=== PATIENT | female | born 1950 | race Caucasian/White ===

== ENCOUNTER → 2018-06-06 10:10 | Outpatient (CLI) | payer MEDICARE, OTHER, SELFPAY ==
--- NOTE | 2018-06-06 10:14 | BI_ITS ---
MAMMOGRAPHY - BILATERAL SCREENING REASON FOR EXAM: Female, 67 years old. Routine annual screening examination. PERTINENT HISTORY: Non-contributory. TECHNIQUE: Digital bilateral breast kasie (3D mammographic acquisition) in the CC and MLO projections. 2-D mediolateral oblique (MLO) and craniocaudad (CC) views of both breasts were obtained. CAD: Full Field Digital Mammography with Computer Added Detection was performed. COMPARISON: Comparison is made with prior study dated May 24, 2017 and December 25, 2015. FINDINGS: Breast Composition: There are scattered areas of fibroglandular density. There are no dominant masses or suspicious calcifications. Stable benign-appearing bilateral axillary lymph nodes. No other significant abnormalities are identified. There has been no significant change since the prior study. BI/SCREENING MAMM (CAD), BILAT IMPRESSION: Stable bilateral screening mammogram. Yearly follow-up mammogram recommended. (A) ASSESSMENT CATEGORY: BIRADS Category 2: Benign. A letter regarding these results will be sent to the patient by the facility within 30 days. Approximately 10% of breast cancers are not detected by mammography. A normal mammogram should not delay biopsy of a clinically suspicious abnormality. [id number] Electronically Signed: Masoud Bustillos MD at 14:24 EDT Tel [phone], Service support ,
== END ==
PROVIDERS: Family Provider Nurse Practitioner; PCP Nurse Practitioner; Visit Provider Obstetrics & Gynecology
DX: Z12.31 Encounter for screening mammogram for malignant neoplasm of breast (principal)
CPT/HCPCS: 77063; 77067

== ENCOUNTER → 2018-10-08 22:28 | Outpatient (CLI) | payer MEDICARE, OTHER, SELFPAY ==
[2018-10-08 15:35] VITALS: BMI 42.4
[2018-10-08 22:40] LABS: Absolute Lymphocyte Count 2.87 X10^3/ul (0.83-4.51); Absolute Neutrophil Count 4.5 X10^3/uL (2.0-7.7); Basophil# 0.04 X10^3/uL; Basophil% 0.5 % (0-1); Eosinophil# 0.13 X10^3/uL; Eosinophils% 1.6 % (0-5); Hematocrit 41.3 % (37-47); Hemoglobin 13.5 g/dl (12.0-15.0); Lymphocyte # 2.87 X10^3/ul (4.0); Lymphocyte % 35.1 % (19-41); Mean Corp Hgb Conc 32.7 g/gl (32-36); Mean Corpuscular Hgb 29.5 pg (27.0-32.0); Mean Corpuscular Volume 90.2 fL (81-99); Mean Platelet Vol. 9.9 fl (6.2-12.0); Monocyte# 0.57 X10^3/uL; Neutrophil # 4.54 X10^3/uL (2.7-7.7); Neutrophil % 55.6 % (47-70); Platelet Count 267 K/mm3 (150-450); RBC Distribution Width CV 15.1 % (11.6-14.6); RBC Distribution Width SD 49.8 fl (35.1-43.9); Red Blood Count 4.58 M/mm3 (4.2-5.4); White Blood Count 8.2 K/mm3 (4.4-11.0)
[2018-10-08 22:45] LABS: POSITIVE COUNT NO; POSITIVE DIFFERENTIAL NO; POSITIVE MORPHOLOGY NO
[2018-10-08 22:57] LABS: ALB/GLOB Ratio 1.1 RATIO (0.9-2.4); AST(SGOT) 16 U/L (15-37); Alanine Aminotransfer ALT/SGPT 30 U/L (13-56); Albumin, Serum 4.1 g/dL (3.2-5.0); Alkaline Phosphatase 92 U/L (45-117); Anion Gap 8 (5-15); BUN 17 mg/dL (7-18); BUN/Creat Ratio 28.5 RATIO (10-20); Calcium,Total 9.2 mg/dL (8.5-10.1); Chloride 102 mmol/L (98-107); Cholesterol 163 mg/dL (200); EST Glomerular Filtration Rate 106 mL/min (>60); Est Glom Filt Rate - Afr Amer 128 mL/min (>60); Globulin 3.8 g/dL (2.2-4.2); Glucose 85 mg/dL (74-106); High Density Lipoprotein 45 mg/dL; Potassium 3.4 mmol/L (3.5-5.1); Protein, Total 7.9 g/dL (6.4-8.2); Sodium Level 140 mmol/L (136-145); Thyroid Stim Hormone (TSH) 1.52 uIU/mL (0.358-3.74); Triglycerides 221 mg/dL; Very Low Density Lipoprotein 44 mg/dL (5-40)
== END ==
PROVIDERS: Family Provider Nurse Practitioner; PCP Nurse Practitioner; Referring Provider Nurse Practitioner; Visit Provider Nurse Practitioner
DX: F32.9 Major depressive disorder, single episode, unspecified (principal); E78.5 Hyperlipidemia, unspecified; R60.9 Edema, unspecified
CPT/HCPCS: 80053; 80061; 84443; 85025

== ENCOUNTER → 2019-09-03 09:56 | Outpatient (CLI) | payer MEDICARE, OTHER, SELFPAY ==
[2019-03-15 18:31] VITALS: BMI 44.6
--- NOTE | 2019-09-03 10:00 | BI_ITS ---
MAMMOGRAPHY - BILATERAL SCREENING REASON FOR EXAM: Female, 69 years old. Routine annual screening examination. PERTINENT HISTORY: Non-contributory. TECHNIQUE: Digital bilateral breast alen (3D mammographic acquisition) in the CC and MLO projections. 2-D mediolateral oblique (MLO) and craniocaudad (CC) views of both breasts were obtained. CAD: Full Field Digital Mammography with Computer Added Detection was performed. COMPARISON: Comparison is made with prior study dated June 06, 2018 and May 24, 2017. FINDINGS: Breast Composition: There are scattered areas of fibroglandular density. There are no dominant masses or suspicious calcifications. Stable appearance of the benign-appearing bilateral axillary lymph nodes. No other significant abnormalities are identified. There has been no significant change since the prior study. BI/SCREEN MAMM (CAD) W/ALEN BILAT IMPRESSION: Stable bilateral screening mammogram. Yearly follow-up mammogram recommended. (A) ASSESSMENT CATEGORY: BIRADS Category 2: Benign. A letter regarding these results will be sent to the patient by the facility within 30 days. Approximately 10% of breast cancers are not detected by mammography. A normal mammogram should not delay biopsy of a clinically suspicious abnormality. [id number] Electronically Signed: Masoud Bustillos, at 13:57 EDT , Service support ,
== END ==
PROVIDERS: Family Provider Nurse Practitioner; PCP Nurse Practitioner; Referring Provider Obstetrics & Gynecology; Visit Provider Obstetrics & Gynecology
DX: Z12.31 Encounter for screening mammogram for malignant neoplasm of breast (principal)
CPT/HCPCS: 77063; 77067

== ENCOUNTER → 2019-09-10 21:11 | Outpatient (CLI) | payer MEDICARE, OTHER, SELFPAY ==
[2019-09-10 16:30] VITALS: BMI 42.0
[2019-09-10 21:19] LABS: Absolute Lymphocyte Count 2.59 X10^3/uL (0.83-4.51); Absolute Neutrophil Count 4.3 X10^3/uL (2.0-7.7); Basophil# 0.07 X10^3/uL; Basophil% 0.9 % (0-1); Eosinophil# 0.13 X10^3/uL; Eosinophils% 1.7 % (0-5); Hematocrit 41.6 % (37-47); Hemoglobin 13.4 g/dL (12.0-15.0); Lymphocyte # 2.59 X10^3/ul (4.0); Lymphocyte % 33.9 % (19-41); Mean Corp Hgb Conc 32.2 g/dL (32-36); Mean Corpuscular Hgb 29.1 pg (27.0-32.0); Mean Corpuscular Volume 90.2 fL (81-99); Mean Platelet Vol. 9.7 fl (6.2-12.0); Monocyte# 0.57 X10^3/uL; Monocyte% 7.5 % (0-10); NRBC Flagged by Analyzer 0 % (0-5); Neutrophil # 4.28 X10^3/uL (2.7-7.7); Neutrophil % 55.9 % (47-70); Platelet Count 259 K/mm3 (150-450); RBC Distribution Width CV 15.2 % (11.6-14.6); RBC Distribution Width SD 50.7 fl (35.1-43.9); Red Blood Count 4.61 M/mm3 (4.2-5.4); White Blood Count 7.7 K/mm3 (4.4-11.0)
[2019-09-10 21:42] LABS: ALB/GLOB Ratio 1.1 RATIO (0.9-2.4); AST(SGOT) 20 U/L (15-37); Alanine Aminotransfer ALT/SGPT 35 U/L (13-56); Alkaline Phosphatase 98 U/L (45-117); Anion Gap 7 (5-15); BUN 15 mg/dL (7-18); BUN/Creat Ratio 19.3 RATIO (10-20); CRP, High Sensitivity Cardiac 2.05 mg/L; Calcium,Total 9.1 mg/dL (8.5-10.1); Chloride 104 mmol/L (98-107); Cholesterol 165 mg/dL (200); Creatinine, Serum 0.78 mg/dL (0.55-1.02); EST Glomerular Filtration Rate 78 mL/min (>60); Est Glom Filt Rate - Afr Amer 94 mL/min (>60); Globulin 3.6 g/dL (2.2-4.2); Glucose 99 mg/dL (74-106); High Density Lipoprotein 45 mg/dL; Potassium 3.6 mmol/L (3.5-5.1); Protein, Total 7.6 g/dL (6.4-8.2); Sodium Level 140 mmol/L (136-145); Thyroid Stim Hormone (TSH) 1.95 uIU/mL (0.358-3.74); Triglycerides 178 mg/dL; Very Low Density Lipoprotein 36 mg/dL (5-40)
== END ==
PROVIDERS: Family Provider Nurse Practitioner; PCP Nurse Practitioner; Referring Provider Nurse Practitioner; Visit Provider Nurse Practitioner
DX: R00.2 Palpitations (principal); R68.89 Other general symptoms and signs; E78.5 Hyperlipidemia, unspecified
CPT/HCPCS: 80053; 80061; 84443; 84484; 85025; 86141

== ENCOUNTER → 2019-09-19 09:30 | Outpatient (CLI) | payer MEDICARE, OTHER, SELFPAY ==
[2019-09-10 16:30] VITALS: BMI 42.0
--- NOTE | 2019-09-19 09:32 | US_ITS ---
PROCEDURES: ULTRASOUND AORTA REASON FOR EXAM: Female, 69 years old. Back pain TECHNIQUE: Ultrasound evaluation of the aorta was performed with real-time and static martin-scale imaging. COMPARISON: None. FINDINGS: There is no elongation or tortuosity of the abdominal aorta. Aorta measures: Proximal 2.2 cm. Middle 1.4 cm. Distal 1.8 cm. Aorta measure transversely: Proximal 2.6 cm. Middle 2.3 cm. Distal 2.4 cm. Right iliac artery measures: 1.1 cm. Right iliac artery measure transversely: 1.3 cm. Left iliac artery measures: 1.5 cm. Left iliac artery measure transversely: 1.3 cm. There is no demonstrated aneurysm.. US/Aorta IMPRESSION: There is no demonstrated aneurysm. Electronically Signed: Dale Sawyer MD at 19:28 EDT Tel , Service support ,
== END ==
PROVIDERS: Family Provider Nurse Practitioner; PCP Nurse Practitioner; Referring Provider Nurse Practitioner; Visit Provider Nurse Practitioner
DX: I77.1 Stricture of artery (principal); M54.5 Low back pain
CPT/HCPCS: 76775

== ENCOUNTER → 2019-10-10 10:54 | Outpatient (CLI) | payer MEDICARE, OTHER, SELFPAY ==
[2019-09-24 13:50] VITALS: BMI 41.8
--- NOTE | 2019-10-10 10:56 | ECHOD_ITS ---
Reason For Study: PALPITATIONS Procedure This was a 2D Doppler, Color Flow transthoracic echocardiogram. Exam performed in department. Left Ventricle Normal LV size. The estimated ejection fraction is 60 %. Stage 2 diastolic dysfunction. No regional wall motion abnormalities noted. Right Ventricle Normal right ventricle. Normal systolic function. Atria Normal left atrium. Normal right atrium. No doppler evidence for ASD. Mitral Valve There is no mitral valve stenosis. Trivial mitral valve insufficiency. Tricuspid Valve There is no tricuspid stenosis. Trivial tricuspid valve insufficiency. Pulmonary artery systolic pressure is 40 mmHg. Aortic Valve Trisinus/trileaflet aortic valve. There is no aortic stenosis. No aortic valve insufficiency. Pulmonic Valve There is no pulmonic valvular stenosis. No pulmonic valve insufficiency. Great Vessels Normal aortic root. Pericardium/Pleural No pericardial effusion. MMode/2D Measurements & Calculations LVIDd: 4.9 cm IVSd: 0.85 cm Ao root diam: 3.0 cm LVIDs: 3.2 cm LVPWd: 0.83 cm RVDd: 4.3 cm FS: 34.7 % LAV(MOD-bp): 48.9 ml LA A4 area: 19.0 cm2 LA dimension(2D): 4.1 cm LAV(MOD-bp) Indexed: 26.7 ml/m2 LAV(MOD-sp2): 40.5 ml LAV(MOD-sp4): 53.8 ml RA A4 area: 15.9 cm2 Time Measurements MV dec time: 0.21 sec Doppler Measurements & Calculations MV E max tom: 113.7 cm/sec Lat Peak E' Tom: 5.9 cm/sec Med Peak E' Tom: 6.5 cm/sec MV A max tom: 110.3 cm/sec E/E' lat: 19.1 E/E' med: 17.6 MV E/A: 1.0 Ao V2 max: 189.7 cm/sec LV V1 max: 127.7 cm/sec TR max tom: 281.4 cm/sec Ao max P.4 mmHg LV V1 max P.5 mmHg TR max P.8 mmHg Interpretation Summary The estimated ejection fraction is 60 %. Stage 2 diastolic dysfunction. Trivial mitral valve insufficiency. Trivial tricuspid valve insufficiency. Pulmonary artery systolic pressure is 40 mmHg. Ordering Physician: Marva Landers Referring Physician: YOLIE CHAWLA Performed By: Rachael Lima, MUNA, RVT
== END ==
PROVIDERS: Family Provider Nurse Practitioner; PCP Nurse Practitioner; Referring Provider Specialist; Visit Provider Specialist
DX: R00.2 Palpitations (principal)
CPT/HCPCS: 93306

== ENCOUNTER → 2020-06-08 06:37 | Outpatient (CLI) | payer MEDICARE, OTHER, SELFPAY ==
[2020-06-04 11:29] VITALS: BMI 45.2
[2020-06-08 07:08] LABS: Absolute Lymphocyte Count 2.45 X10^3/uL (0.83-4.51); Absolute Neutrophil Count 4.3 X10^3/uL (2.0-7.7); Basophil# 0.06 X10^3/uL; Basophil% 0.8 % (0-1); Eosinophil# 0.13 X10^3/uL; Eosinophils% 1.7 % (0-5); Hematocrit 41.4 % (37-47); Hemoglobin 13.1 g/dL (12.0-15.0); Lymphocyte # 2.45 X10^3/ul (4.0); Lymphocyte % 32.2 % (19-41); Mean Corp Hgb Conc 31.6 g/dL (32-36); Mean Corpuscular Hgb 29.6 pg (27.0-32.0); Mean Corpuscular Volume 93.5 fL (81-99); Mean Platelet Vol. 9.8 fl (6.2-12.0); Monocyte# 0.64 X10^3/uL; Monocyte% 8.4 % (0-10); NRBC Flagged by Analyzer 0 % (0-5); Neutrophil # 4.31 X10^3/uL (2.7-7.7); Neutrophil % 56.5 % (47-70); Platelet Count 256 K/mm3 (150-450); RBC Distribution Width CV 14.4 % (11.6-14.6); RBC Distribution Width SD 49.1 fl (35.1-43.9); Red Blood Count 4.43 M/mm3 (4.2-5.4); White Blood Count 7.6 K/mm3 (4.4-11.0)
[2020-06-08 08:07] LABS: ALB/GLOB Ratio 1.1 RATIO (0.9-2.4); AST(SGOT) 20 U/L (15-37); Alanine Aminotransfer ALT/SGPT 33 U/L (13-56); Albumin, Serum 3.9 g/dL (3.2-5.0); Alkaline Phosphatase 104 U/L (45-117); Anion Gap 5 (5-15); BUN 14 mg/dL (7-18); BUN/Creat Ratio 21.5 RATIO (10-20); Calcium,Total 9.5 mg/dL (8.5-10.1); Chloride 104 mmol/L (98-107); Cholesterol 173 mg/dL (200); Creatinine, Serum 0.65 mg/dL (0.55-1.02); EST Glomerular Filtration Rate 95 mL/min (>60); Est Glom Filt Rate - Afr Amer 115 mL/min (>60); Globulin 3.4 g/dL (2.2-4.2); Glucose 131 mg/dL (74-106); High Density Lipoprotein 41 mg/dL; Potassium 3.9 mmol/L (3.5-5.1); Protein, Total 7.3 g/dL (6.4-8.2); Sodium Level 137 mmol/L (136-145); Thyroid Stim Hormone (TSH) 1.89 uIU/mL (0.358-3.74); Triglycerides 254 mg/dL; Very Low Density Lipoprotein 51 mg/dL (5-40)
== END ==
PROVIDERS: PCP Nurse Practitioner; Referring Provider Nurse Practitioner; Visit Provider Nurse Practitioner
DX: I10 Essential (primary) hypertension (principal); R53.83 Other fatigue
CPT/HCPCS: 36415; 80053; 80061; 84443; 85025

== ENCOUNTER → 2020-09-25 14:20 | Outpatient (CLI) | payer MEDICARE, OTHER, SELFPAY ==
[2020-06-04 11:29] VITALS: BMI 45.2
--- NOTE | 2020-09-25 14:40 | BI_ITS ---
MAMMOGRAPHY - BILATERAL SCREENING REASON FOR EXAM: Female, 70 years old. Routine annual screening examination. PERTINENT HISTORY: Non-contributory. TECHNIQUE: Digital bilateral breast alen (3D mammographic acquisition) in the CC and MLO projections. 2-D mediolateral oblique (MLO) and craniocaudad (CC) views of both breasts were obtained. CAD: Full Field Digital Mammography with Computer Added Detection was performed. COMPARISON: Comparison is made with prior study dated 09/03/2019 and 06/06/2018. FINDINGS: Breast Composition: There are scattered areas of fibroglandular density. There are no dominant masses or suspicious calcifications. Stable benign appearing bilateral axillary lymph nodes. No other significant abnormalities are identified. There has been no significant change since the prior study. BI/SCREEN MAMM (CAD) W/ALEN BILAT IMPRESSION: Stable bilateral screening mammogram. Yearly follow-up mammogram recommended. (A) ASSESSMENT CATEGORY: BIRADS Category 2: Benign. A letter regarding these results will be sent to the patient by the facility within 30 days. Approximately 10% of breast cancers are not detected by mammography. A normal mammogram should not delay biopsy of a clinically suspicious abnormality. [id number] Electronically Signed: Masoud Bustillos, at 15:33 EST , Service support ,
== END ==
PROVIDERS: PCP Nurse Practitioner; Referring Provider Nurse Practitioner; Visit Provider Nurse Practitioner
DX: Z12.31 Encounter for screening mammogram for malignant neoplasm of breast (principal)
CPT/HCPCS: 77063; 77067

== ENCOUNTER 2020-12-24 13:30 | Emergency (ER) | payer MEDICARE, OTHER, SELFPAY ==
[2020-06-04 11:29] VITALS: BMI 45.2
[2020-12-24 13:31] VITALS: BP 158/104; PULSE 104; RESP 18; TEMP 36; O2SAT 98; BMI 44.9
--- NOTE | 2020-12-24 14:20 | RAD_ITS ---
STUDY: X-RAY - LEFT HAND REASON FOR EXAM: Female, 70 years old. CAT BITES ON 2ND, 3RD, AND 4TH DIGITS OF LEFT HAND. TECHNIQUE: 3 view(s) of the hand. COMPARISON: None. FINDINGS: There is joint space narrowing of the radiocarpal articulation consistent with degenerative arthrosis. Normal distal radioulnar joint. Normal visualized carpal bones. Normal carpal articulations There is degenerative arthrosis of the carpometacarpal (CMC) articulation of the thumb. Normal second through fifth carpometacarpal joints. Normal metacarpi. There is degenerative arthrosis of the metacarpophalangeal (MCP) joints. Normal interphalangeal joint of the thumb. Normal proximal and distal phalanges of the thumb. Normal metacarpophalangeal joints of the second through fifth fingers. There is diffuse articular joint space narrowing of the proximal and distal interphalangeal joints of the second through fifth fingers, but without erosive changes or periarticular soft tissue swelling. Normal phalanges of the second through fifth fingers. There is soft tissue swelling of the second, third and fourth digits. RAD/Hand Min 3 Views IMPRESSION: Degenerative joint disease of the hand and wrist, as described above. Soft tissue swelling of the second, third and fourth digits. Electronically Signed: Aurea Monet MD at 14:41 EST Tel , Service support ,
--- NOTE | 2020-12-24 14:20 | RAD_ITS ---
STUDY: X-RAY - RIGHT HAND REASON FOR EXAM: Female, 70 years old. CAT BITES ON 1ST AND 2ND DIGITS OF RIGHT HAND. TECHNIQUE: 3 view(s) of the hand. COMPARISON: None. FINDINGS: There is joint space narrowing of the radiocarpal articulation consistent with degenerative arthrosis. Normal distal radioulnar joint. Normal visualized carpal bones. Normal carpal articulations There is degenerative arthrosis of the carpometacarpal (CMC) articulation of the thumb. Normal second through fifth carpometacarpal joints. Normal metacarpi. There is degenerative arthrosis of the metacarpophalangeal (MCP) joints. Normal interphalangeal joint of the thumb. Normal proximal and distal phalanges of the thumb. Normal metacarpophalangeal joints of the second through fifth fingers. There is diffuse articular joint space narrowing of the proximal and distal interphalangeal joints of the second through fifth fingers, but without erosive changes or periarticular soft tissue swelling. Normal phalanges of the second through fifth fingers. There is soft tissue swelling of the second digit. RAD/Hand Min 3 Views IMPRESSION: Degenerative joint disease of the hand and wrist, as described above. Second digit soft tissue swelling. Electronically Signed: Aurea Monet MD at 14:39 EST Tel , Service support ,
--- NOTE | 2020-12-24 14:24 | ED.VISSUMM ---
- ER Visit Summary Date of Service: 12/24/20 Chief Complaint: [Cat bites] History of Present Illness: The patient is a 70 F [presents to the emergency department with multiple cat bites to both hands. Patient states that her cat got stuck in some duct work in her neighbor's house and she was trying to pull the cat out as the cat was biting and scratching at her hands. Patient is left-hand dominant. Patient unsure of her last tetanus shot. Patient has history of high cholesterol.] Physical Examination: [HERAMEZ-PERRBOUCHRA, ALEMI. Cranial nerves II through XII grossly intact. TMs clear. Mucous membranes moist. No adenopathy. Cardiovascular-regular rate and rhythm without murmur or ectopy Lungs-clear to auscultation, chest wall stable without crepitus or subcu emphysema Abdomen-normoactive bowel sounds, soft, nontender, no rebound or rigidity, no peritoneal signs. Extremities-intact ?4, normal range of motion, normal pulses. Hands-patient has multiple small bites and puncture wounds to right thumb and index finger as well as left index finger left long finger left ring finger and small finger. Patient has good range of motion flexion extension of all digits. Patient had some mild decrease sensation to the medial aspect of the right index finger however when I checked sensation seems to be the same on both sides. The most significant wounds are to the right index finger where she has a bite/laceration over the dorsum of the proximal phalanx measuring approximately 1 cm in length. Patient also had a irregularly-shaped laceration about 1 cm over the lateral aspect of the PIP joint of the right index finger. Patient had a small puncture wound about 7 mm over the MCP joint dorsum of the index finger.] Test Results: [X-rays of both hands obtained to rule out any foreign bodies. X-rays were interpreted by myself as no acute fractures or foreign bodies noted. Patient has some soft tissue swelling diffusely about her digits. Radiology in agreement with interpretation.] Emergency Department Course and Treatment: [Patient had her wounds cleansed and dressed. I do not feel that suturing any of these is indicated especially due to high risk of infection. Patient was started on Augmentin 875 mg p.o. Patient was given tetanus booster.] Treatment Plan: [To follow-up with her primary care physician within next 3 to 5 days. She is advised to return if increasing pain, redness, swelling, or condition should worsen anyway.] Disposition: [Discharged home in stable condition] Impression: [Multiple cat bite wounds to bilateral hands and fingers] This note was generated with [employer] dictation software. It may contain incorrect words, spelling, and punctuation that were not noted in review of the chart prior to signing ED Disposition - Plan for ED Patient: Referrals: Rose Mary Campbell NP, PURIFYING PLANT OPERATOR-C [Primary Care Provider] -
[2020-12-24] MEDS: Amox/Clavulanate 875 MG Tablet PO (14:40)
[2020-12-24] MEDS: Diphth,Pertuss(Acell),Tet Vac 0.5 ML Vial IM (14:40)
--- NOTE | 2020-12-24 14:51 | DCINST.ED_ITS ---
ED Disposition - Plan for ED Patient: Instructions: ED Cat Bite Prescriptions: Amox/Clavulanate Tablet [Augmentin Tablet] 875 mg PO Q12H #20 tab Transmission Status: Pending to [id number] Referrals: Rose Mary Campbell NP, IMMIGRATION INVESTIGATOR-C [Primary Care Provider] - 3-5 Days
--- NOTE | 2020-12-24 14:51 | ED.DEP ---
ED Disposition - Plan for ED Patient: Instructions: ED Cat Bite Prescriptions: Amox/Clavulanate Tablet [Augmentin Tablet] 875 mg PO Q12H #20 tab Transmission Status: Pending to [id number] Referrals: Rose Mary Campbell NP, INSECTICIDE EXPERT-C [Primary Care Provider] - 3-5 Days
[2020-12-24 15:03] VITALS: BP 159/72; PULSE 98; RESP 18; O2SAT 94
== END 2020-12-24 15:08 | disposition home or self-care (01) ==
LOC: ED 14:03
PROVIDERS: Emergency Provider Emergency Medicine; PCP Nurse Practitioner
DX: S61.210A Laceration without foreign body of right index finger without damage to nail, initial encounter (principal); S61.031A Puncture wound without foreign body of right thumb without damage to nail, initial encounter; S60.471A Other superficial bite of left index finger, initial encounter; S60.473A Other superficial bite of left middle finger, initial encounter; S60.475A Other superficial bite of left ring finger, initial encounter; S60.477A Other superficial bite of left little finger, initial encounter; W55.01XA Bitten by cat, initial encounter; Y93.89 Activity, other specified; Y92.098 Other place in other non-institutional residence as the place of occurrence of the external cause; Y99.8 Other external cause status; E78.00 Pure hypercholesterolemia, unspecified
CPT/HCPCS: 73130; 90471; 90715; 99282

== ENCOUNTER → 2020-12-28 | Outpatient (CLI) | payer MEDICARE, OTHER, SELFPAY ==
[2020-12-28 16:00] VITALS: BMI 44.9
== END | disposition home or self-care (01) ==
PROVIDERS: PCP Nurse Practitioner; Referring Provider Nurse Practitioner; Visit Provider Nurse Practitioner
DX: S61.259A Open bite of unspecified finger without damage to nail, initial encounter (principal); W55.01XA Bitten by cat, initial encounter
CPT/HCPCS: 87070; 87205

== ENCOUNTER → 2021-01-06 | Outpatient (CLI) | payer MEDICARE, OTHER, SELFPAY ==
[2021-01-06 15:01] VITALS: BMI 44.1
[2021-01-06 23:06] LABS: AST(SGOT) 28 U/L (15-37); Alanine Aminotransfer ALT/SGPT 46 U/L (13-56); Albumin, Serum 3.8 g/dL (3.2-5.0); Alkaline Phosphatase 116 U/L (45-117); Anion Gap 5 (5-15); BUN 15 mg/dL (7-18); BUN/Creat Ratio 20.6 RATIO (10-20); Calcium,Total 9.1 mg/dL (8.5-10.1); Chloride 100 mmol/L (98-107); Cholesterol 199 mg/dL (200); Creatinine, Serum 0.73 mg/dL (0.55-1.02); EST Glomerular Filtration Rate 84 mL/min (>60); Est Glom Filt Rate - Afr Amer 101 mL/min (>60); Globulin 3.8 g/dL (2.2-4.2); Glucose 186 mg/dL (74-106); High Density Lipoprotein 38 mg/dL; Potassium 3.8 mmol/L (3.5-5.1); Protein, Total 7.6 g/dL (6.4-8.2); Sodium Level 136 mmol/L (136-145); Triglycerides 531 mg/dL
== END | disposition home or self-care (01) ==
PROVIDERS: PCP Nurse Practitioner; Visit Provider Nurse Practitioner
DX: I10 Essential (primary) hypertension (principal); E78.1 Pure hyperglyceridemia
CPT/HCPCS: 80053; 80061

== ENCOUNTER → 2021-02-10 | Outpatient (CLI) | payer MEDICARE, OTHER, SELFPAY ==
[2021-02-08 13:14] VITALS: BMI 43.3
--- NOTE | 2021-02-10 | MISC_PTH ---
PATIENT: CHRIS GARCIA [facility] U#:[id number] AGE/SX: 70/F ROOM: RE02/10/[address]: Dr. Dexter Connors DDS : 1950 BED: DIS: 02/10/2021 SPEC #: [id number] RECD: 02/10/21 12:45 STATUS: ROXY RECb #: [id number] JIAN: 02/10/21 00:[address]: Dexter Connors DEPT: SURGICAL PATHOLOGY RECD BY: Jori Ta ENTERED: 02/10/21 12:46 SP TYPE: MISC OTHR DR: Rose Mary Campbell, ADOLESCENT COUNSELOR-C Tissues: Mouth, NOS Procedures: Surgery Specimen Level IV HEADER OPERATION: Biopsy left PRE-OP DIAGNOSIS: Several week history for 5 mm growth TISSUE SUBMITTED: Papilloma retromolar region MICROSCOPIC DIAGNOSIS Papilloma of retromolar region, biopsy: Squamous papilloma, mildly inflamed. AM:neetu 02/11/2021 MICROSCOPIC DESCRIPTION Slides are reviewed. GROSS DESCRIPTION Received in fixative is one container labeled with the patient's name and designated cheek. The specimen consists of a piece of lam soft tissue measuring 0.6 x 0.4 x 0.2 cm. The entire specimen is submitted in one cassette. / SJ:neetu 02/10/21 TC:5 CPT: 91230
== END | disposition home or self-care (01) ==
LOC: LABSPEC 12:33
PROVIDERS: PCP Nurse Practitioner; Referring Provider Dentist Oral and Maxillofacial Surgery; Visit Provider Dentist Oral and Maxillofacial Surgery
DX: D10.39 Benign neoplasm of other parts of mouth (principal)
CPT/HCPCS: 88305

== ENCOUNTER 2021-03-12 07:49 | Day surgery (SDC) | payer MEDICARE, OTHER, SELFPAY ==
[2021-02-08 13:14] VITALS: BMI 43.3
[2021-02-23 14:59] VITALS: BMI 44.5
[2021-03-12 08:15] VITALS: BP 131/67; PULSE 65; RESP 16; TEMP 36.7; O2SAT 97; BMI 43.4
[2021-03-12] MEDS: Lactated Ringers 1,000 ML 100 ML IV (08:30)
--- NOTE | 2021-03-12 08:30 | PCM.HP.BLA ---
Problem List (1) Gastroesophageal reflux disease Status: Acute Qualifiers: (2) Diarrhea Status: Acute Qualifiers: (3) Personal history of colonic polyps Status: Acute History and Physical Date of Admission: 03/12/21 Intake Visit Reasons: CSCOPE. DIARRHEA Retail Team Leader Required: No Is patient in pain?: No Allergies No Known Allergies Allergy (Verified 02/08/21 13:29) Medications antiarthritic combination no.2 900 mg tablet mg PO tab 09/24/19 [History Confirmed 02/08/21] ascorbate calcium (vitamin C) 500 mg tablet 500 mg PO BID 09/24/19 [History Confirmed 02/08/21] aspirin 81 mg tablet,delayed release 81 mg PO DAILY 09/24/19 [History Confirmed 02/08/21] calcium carbonate 600 mg calcium (1,500 mg) tablet 600 mg PO BID tab 09/24/19 [History Confirmed 02/08/21] ginkgo biloba 120 mg tablet 120 mg PO DAILY 09/24/19 [History Confirmed 02/08/21] multivitamin 1 tab PO DAILY 09/24/19 [History Confirmed 02/08/21] psyllium husk 0.52 gram capsule 1.04 g PO BID cap 09/24/19 [History Confirmed 02/08/21] vitamin E (dl, acetate) 400 unit capsule 400 unit PO DAILY 09/24/19 [History Confirmed 02/08/21] fish oil 400 mg-flaxseed 400 mg-prim,blk conductor and engineer,borag oils 200 mg capsule 2 cap PO DAILY cap 12/04/19 [History Confirmed 02/08/21] potassium 99 mg tablet 99 mg PO BID tab 12/04/19 [History Confirmed 02/08/21] syringe with needle, safety 3 mL 22 gauge x 1 See Rx Instructions .ROUTE .MEDSUPPLY #50 ea 06/12/20 [Rx Confirmed 02/08/21] cyanocobalamin (vitamin B-12) 1,000 mcg/mL injection solution 1,000 mcg IM Q2W 90 Days #6 ml 01/06/21 [Rx Confirmed 02/08/21] fluoxetine 20 mg capsule 20 mg PO DAILY #90 cap 01/06/21 [Rx Confirmed 02/08/21] hydrochlorothiazide 25 mg tablet 25 mg PO DAILY #90 tab 01/06/21 [Rx Confirmed 02/08/21] metformin 500 mg tablet 500 mg PO BID #180 tab 01/07/21 [Rx Confirmed 02/08/21] atorvastatin 20 mg tablet 40 mg PO DAILY tablet 02/08/21 [History] [facility] Medical History (Updated 02/08/21 @ 13:[address] Tai Joel MD) Gastroesophageal reflux disease (Acute) Personal history of colonic polyps (Acute) Sleep apnea (Acute) Depression (Chronic) Edema (Acute) Atopic eczema (Chronic) Tick bite of abdominal wall (Resolved) Back pain (Acute) Wellness examination (Acute) Nonhealing nonsurgical wound (Acute) Cat bite of finger (Acute) Hyperglycemia (Acute) Weight gain (Acute) Hypertension (Chronic) Diastolic dysfunction (Acute) Hyperlipemia (Chronic) Throat fullness (Acute) Palpitations (Acute) Surgical History History of cholecystectomy (Resolved) H/O hemorrhoidectomy (Resolved) S/P tubal ligation (Resolved) Family History Father Heart disease Brother Heart disease Aunt Thyroid disorder Mother Alzheimer's dementia Social History (Updated 02/08/21 @ 15:[address] Tai Joel MD) Smoking Status: Never smoker alcohol intake: never substance use type: does not use caffeine: Yes Type: carbonated beverages Number of servings: 2 what type of physical activity do you participate in: none frequency: does not exercise HPI HPI HPI: CHRIS GARCIA, is a 70 F who presents to the office today for surgical consultation. The patient is referred by Rose Mary Campbell CNP and a written compromise surgical consult recommendations will return to her. The patient is complaining of increased reflux symptoms as well as some intermittent diarrhea. Her previous upper endoscopy was June 06, 2013. This showed a variable Z-line and erythema at the GE junction and erythema of the stomach consistent with gastritis. It was recommended the patient initiate medical treatment. The patient states that she only takes as needed Tums. On April 01 she had a colonoscopy. Hemorrhoids were found as well as diverticula. The patient states that she has had a previous history of colon polyps. She has not had any unexpected weight loss. Denies bright red blood per rectum or melena. Denies family history of colon cancer. HPI HPI HPI: CHRIS GARCIA, is a 70 F who presents to the office today for ROS General General: No weight change, appetite, fatigue, colon cancer, breast cancer or weakness HEENT HEENT: No difficulty swallowing, eye injury, eye surgery, swollen glands or hoarseness Endo Endocrine: Yes diabetes mellitus; no thyroid disease, thyroid cancer, Hair loss, heat intolerance or cold intolerance Skin Skin: No rash or changing moles Musc Musculoskeletal: Yes arthritis; no back problems, rheumatoid arthritis, gout or joint pain Cardio Cardiovascular: Yes high blood pressure; no murmur, pacemaker, heart disease, atrial fibrillation, heart attack, heart stent, palpitations, shortness of breat with exertion or chest pain Psych Psychiatric: No depression, anxiety or hearing voices Resp Respiratory: No shortness of breath, No sleep apnea, No cough, No COPD, No asthma, No emphysema, No wheezing Gastro Gastrointestinal: No abdominal pain, No nausea or vomiting, No diarrhea, No constipation, Yes blood in stool, No acid reflux, No hemorrhoids, No ulcers, No gallbladder problem, No black,tarry stools Kevin Hematologic: No blood thinners, No blood disorders, No bleeding, No anemia, No blood clots Neuro Neurologic: No system reviewed and no additional complaints, except as docu, No as per HPI, No abnormal walking, No abnormal hearing, No abnormal movements, No abnormal speech, No behavioral changes, No burning sensations, No confusion, No seizure-like activity, No unsteadiness, No dizziness, No localized weakness, No frequent falls, No headache(s), No lack of coordination, No loss of vision, No memory loss, No numbness, No other visual disturbances, No radiating pain, No restless legs, No sensory deficit, No fainting, No tingling, No tremor(s), No weakness, No other Exam Const General: cooperative, comfortable, no acute distress Nutritional Appearance: obese Orientation: alert, awake HENMT Head: normal to inspection Eyes General: appearance normal, both eyes and all related structures Resp Effort & Inspection: normal respiratory effort Auscultation: clear to auscultation bilaterally Cardio Rate: regular rate Heart Sounds: no murmurs GI Palpation: soft, no hepatosplenomegaly Auscultation: normal bowel sounds Musc Cervical Spine: normal cervical lordosis Neuro General: alert, awake Extrem General: no calf tenderness Psych Affect: normal affect Assessment & Plan Problems 1. Personal history of colonic polyps Z86.010 2. Gastroesophageal reflux disease, unspecified whether esophagitis present K21.9 Plan Escalating GERD symptoms and a personal history of colon polyps. I propose for her a esophagogastroduodenoscopy with possible biopsy and colonoscopy with possible biopsy or polypectomy as indicated. She is aware of the technique, benefit, risk of alternatives. She did present with her today. We will schedule procedure at his discretion. I appreciate the opportunity of assisting with her surgical care. Copy: EVELIA Piña M.D., F.A.C.S. Coding Level of Care Code 95015 Diagnoses Personal history of colonic polyps Z86.010 Gastroesophageal reflux disease, unspecified whether esophagitis present K21.9 ??Esophagitis presence: esophagitis presence not specified I have re-examined the patient. There are no clinical changes since date of exam. Procedure Criteria Procedure Type: Elective COVID Risk Discussion: The surgeon/proceduralist and patient have discussed in detail the risk of exposure to and/or potential harm posed by the COVID-19 virus with having a surgery/procedure at this time versus the risk of delaying the surgery/procedure. It is not possible to know either the risk of delaying the surgery or procedure or chance of getting an infection with perfect accuracy, but a joint decision was made between the patient and the surgeon/proceduralist to proceed at this time with the scheduled surgery/procedure as indicated on the consent form.
[2021-03-12 08:36] LABS: Bedside Glucose 134 mg/dL (70-110)
--- NOTE | 2021-03-12 09:00 | EGD_PTH ---
PATIENT: CHRIS GARCIA LOC: EN U#:[id number] AGE/SX: 70/F ROOM: RE03/12/[address]: Dr. Tai Joel MD : 1950 BED: DIS: 03/12/2021 SPEC #: [id number] RECD: 03/12/21 12:09 STATUS: ROXY VIGNESH #: [id number] JIAN: 03/12/21 09:[address]: Tai Joel DEPT: SURGICAL PATHOLOGY RECD BY: Luciana Tomas ENTERED: 03/12/21 12:53 SP TYPE: EGD BIOPSY OT DR: Rose Mary Campbell, [employer] MANAGER-C Tissues: A - Duodenum, NOS B - Gastric mucous membrane C - Gastric mucous membrane D - Esophagus, NOS E - Esophagus, NOS F - COLON BIOPSY Procedures: Surgery Specimen Level IV HEADER OPERATION: Colonoscopy, EGD ([facility]) PRE-OP DIAGNOSIS: GERD, diarrhea, colonic polyps TISSUE SUBMITTED: A ? Duodenum biopsy, B ? Antral biopsy, H. pylori and path, C ? Greater curvature polyp, D ? Distal esophageal biopsy, E ? Mid esophageal biopsy, F ? Random colonic biopsies MICROSCOPIC DIAGNOSIS A. Duodenal biopsy: A fragment of duodenal mucosa with mild nonspecific chronic inflammation and Maryan gland hyperplasia. B. Antral biopsy: Mild gastritis. See microscopic description and comment. C. Greater curvature polyp, biopsy: Fundic gland polyp. D. Distal esophageal biopsy: Fragments of squamous epithelium, no pathologic diagnosis. E. Mid esophageal biopsy: A fragment of squamous epithelium, no pathologic diagnosis. F. Colon, random biopsy: Fragments of colonic mucosa, no pathologic diagnosis. SJ:rg 03/15/2021 COMMENT B. The results of immunohistochemistry for Helicobacter pylori will be reported separately ([id number]). MICROSCOPIC DESCRIPTION Slides are reviewed. B. The specimen shows fragments of gastric mucosa with chronic inflammatory cell infiltrates in the lamina propria consisting of lymphocytes and plasma cells, consistent with mild chronic gastritis. GROSS DESCRIPTION A - Received in fixative is one container labeled with the patient's name and designated duodenum biopsy. The specimen consists of multiple irregular fragments of light lam soft tissue that in aggregate measure 1 x 0.2 x 0.1 cm. The specimen is totally submitted in one cassette. B - Received in fixative is one container labeled with the patient's name and designated antral biopsy. The specimen consists of one irregular fragment of light lam soft tissue that measures 0.5 x 0.2 x 0.1 cm. The specimen is totally submitted in one cassette. C - Received in fixative is one container labeled with the patient's name and designated greater curvature polyp. The specimen consists of one irregular fragment of light lam soft tissue that measures 0.3 x 0.3 x 0.1 cm. The specimen is totally submitted in one cassette. D - Received in fixative is one container labeled with the patient's name and designated distal esophageal biopsy. The specimen consists of multiple irregular fragments of light lam soft tissue that in aggregate measure 0.5 x 0.2 x 0.1 cm. The specimen is totally submitted in one cassette. E - Received in fixative is one container labeled with the patient's name and designated mid esophageal biopsy. The specimen consists of one irregular fragment of light lam soft tissue that measures 0.6 x 0.2 x 0.1 cm. The specimen is totally submitted in one cassette. F - Received in fixative is one container labeled with the patient's name and designated random colonic biopsy. The specimen consists of multiple irregular fragments of light lam soft tissue that in aggregate measure 2 x 0.3 x 0.1 cm. The specimen is totally submitted in one cassette. / SJ:rg 03/12/21 TC:3 CPT: 50324 x6
--- NOTE | 2021-03-12 09:00 | IMM_PTH ---
PATIENT: CHRIS GARCIA LOC: EN U#:[id number] AGE/SX: 70/F ROOM: RE03/12/[address]: Dr. Tai Joel MD : 1950 BED: DIS: 03/12/2021 SPEC #: [id number] RECD: 03/12/21 13:30 STATUS: ROXY REQ #: [id number] JIAN: 03/12/21 09:[address]: Tai Joel DEPT: IMMUNOHISTOCHEMISTRY RECD BY: Flakita Klein ENTERED: 03/12/21 13:30 SP TYPE: IMMUNO OTHR DR: Rose Mary Campbell, HOME HEALTH MANAGER-C Tissues: B - Stomach, NOS Procedures: H Pylori (initial) PHYSICIAN & INSTITUTION [place] [address] SPECIMEN INFORMATION: Tissue Source: B ? Antral biopsy Clinical Info: GERD, diarrhea, colonic polyps Specimen Number: [id number] CPT code: 58844 METHODOLOGY: Deparaffinized sections of prefer/formalin-fixed tissue or PAP/DQ stained slides are incubated with monoclonal/polyclonal antibodies/oligonucleotide probes. Localization is made via biotin free immunoperoxidase method. Appropriate controls are performed and reacted as expected. Results on target cell population are indicated in the following table: RESULTS: ANTIBODY / CLONE RESULT Block B H Pylori (polyclonal) negative These tests were developed and their performance characteristics determined by [facility]. They may not have been cleared or approved by the U.S. Food and Drug Administration. The FDA has determined that such clearance or approval is not necessary. INTERPRETATION: B. Antral biopsy: Negative for Helicobacter pylori organisms. SJ:neetu 03/15/2021
[2021-03-12 09:50] VITALS: BP 131/67; BP 99/50; PULSE 70; RESP 18; TEMP 36.3; O2SAT 98
--- NOTE | 2021-03-12 09:52 | OP.CCLET_ITS ---
03/12/2021 Rose Mary Campbell NP [facility] [address] [address] Re : Upper GI endoscopy procedure for Alina Ramirez Dear Ms. Campbell This procedure was performed on Friday, March 12, 2021. My impressions and recommendations are as follows: Impressions : - Reflux esophagitis. Biopsied. - Normal mid esophagus. Biopsied. - Small hiatal hernia. - Acute chronic gastritis with hemorrhage. Biopsied. - Multiple gastric polyps. Resected and retrieved. - Erythematous duodenopathy. Biopsied. Recommendations : - Discharge patient to home. - Resume previous diet. - Continue present medications. - Use Prilosec (omeprazole) 40 mg PO daily. - Telephone my office for pathology results in 1 week. My findings are described in the full procedure note, which is enclosed. If I can be of further assistance, please feel free to contact me at Doctor phone number(s): Work: . Sincerely, Tai Joel MD 03/12/2021 9:51:51 AM This report has been signed electronically.
--- NOTE | 2021-03-12 09:52 | OP.EGD_ITS ---
Patient Name: Alina Ramirez Procedure Date: 03/12/2021 9:05 AM Date of : 1950 Age: 70 Procedure: Upper GI endoscopy Indications: Suspected esophageal reflux Providers: Tai Joel MD Medicines: See the Anesthesia note for documentation of the administered medications Complications: No immediate complications. Procedure: Pre-Anesthesia Assessment: - Prior to the procedure, a History and Physical was performed, and patient medications and allergies were reviewed. The patient's tolerance of previous anesthesia was also reviewed. The risks and benefits of the procedure and the sedation options and risks were discussed with the patient. All questions were answered, and informed consent was obtained. Prior Anticoagulants: The patient has taken aspirin, last dose was 1 day prior to procedure. ASA Grade Assessment: III - A patient with severe systemic disease. After reviewing the risks and benefits, the patient was deemed in satisfactory condition to undergo the procedure. After obtaining informed consent, the endoscope was passed under direct vision. Throughout the procedure, the patient's blood pressure, pulse, and oxygen saturations were monitored continuously. The gastroscope was introduced through the mouth, and advanced to the second part of duodenum. The upper GI endoscopy was accomplished without difficulty. The patient tolerated the procedure well. Scope In: 9:14:30 AM Scope Out: 9:19:57 AM Total Procedure Duration Time 0 hours 5 minutes 27 seconds Findings: Esophagitis with no bleeding was found 37 cm from the incisors. Biopsies were taken with a cold forceps for histology. The mid esophagus was normal. Biopsies were taken with a cold forceps for histology. A small hiatal hernia was present. Diffuse moderate inflammation with hemorrhage characterized by adherent blood and linear erosions was found in the gastric antrum. Biopsies were taken with a cold forceps for histology. Multiple sessile polyps with no stigmata of recent bleeding were found on the greater curvature of the stomach. The polyp was removed with a cold biopsy forceps. Resection and retrieval were complete. Diffuse mildly erythematous mucosa without active bleeding and with no stigmata of bleeding was found in the duodenal bulb. Biopsies were taken with a cold forceps for histology. Impression: - Reflux esophagitis. Biopsied. - Normal mid esophagus. Biopsied. - Small hiatal hernia. - Acute chronic gastritis with hemorrhage. Biopsied. - Multiple gastric polyps. Resected and retrieved. - Erythematous duodenopathy. Biopsied. Recommendation: - Discharge patient to home. - Resume previous diet. - Continue present medications. - Use Prilosec (omeprazole) 40 mg PO daily. - Telephone my office for pathology results in 1 week. Procedure Code(s): --- Professional --- 33154, Esophagogastroduodenoscopy, flexible, transoral; with biopsy, single or multiple Diagnosis Code(s): --- Professional --- K21.0, Gastro-esophageal reflux disease with esophagitis K44.9, Diaphragmatic hernia without obstruction or gangrene K29.01, Acute gastritis with bleeding K29.51, Unspecified chronic gastritis with bleeding K31.7, Polyp of stomach and duodenum K31.89, Other diseases of stomach and duodenum CPT copyright 2017 [employer]. All rights reserved. The codes documented in this report are preliminary and upon certified prosthetist vice president review may be revised to meet current compliance requirements. Tai Joel MD 03/12/2021 9:51:51 AM This report has been signed electronically. Number of Addenda: 0 Note Initiated On: 03/12/2021 9:05 AM
[2021-03-12 09:55] VITALS: BP 131/67; BP 88/52; PULSE 69; RESP 18; O2SAT 97
--- NOTE | 2021-03-12 09:55 | OP.COLON_ITS ---
Patient Name: Alina Ramirez Procedure Date: 03/12/2021 9:21 AM Date of : 1950 Age: 70 Procedure: Colonoscopy Indications: Screening for colorectal malignant neoplasm Providers: Tai Joel MD Medicines: See the Anesthesia note for documentation of the administered medications Patient Profile: Last Colonoscopy: March 2009. Complications: No immediate complications. Procedure: Pre-Anesthesia Assessment: - Prior to the procedure, a History and Physical was performed, and patient medications and allergies were reviewed. The patient's tolerance of previous anesthesia was also reviewed. The risks and benefits of the procedure and the sedation options and risks were discussed with the patient. All questions were answered, and informed consent was obtained. Prior Anticoagulants: The patient has taken aspirin, last dose was 1 day prior to procedure. ASA Grade Assessment: III - A patient with severe systemic disease. After reviewing the risks and benefits, the patient was deemed in satisfactory condition to undergo the procedure. After I obtained informed consent, the scope was passed under direct vision. Throughout the procedure, the patient's blood pressure, pulse, and oxygen saturations were monitored continuously. The colonoscope was introduced through the anus and advanced to the cecum, identified by appendiceal orifice and ileocecal valve. The colonoscopy was somewhat difficult due to the patient's body habitus. The patient tolerated the procedure well. The quality of the bowel preparation was good. The ileocecal valve and the appendiceal orifice were photographed. Scope In: 9:23:18 AM Scope Withdrawal Time 0 hours 9 minutes 34 seconds Scope Out: 9:43:03 AM Total Procedure Duration Time 0 hours 19 minutes 45 seconds Findings: The digital rectal exam findings include internal hemorrhoids that prolapse with straining, but spontaneously regress to the resting position (Grade II). Multiple diverticula were found in the sigmoid colon and descending colon. The colon (entire examined portion) was moderately tortuous. Biopsies for histology were taken with a cold forceps from the entire colon for evaluation of microscopic colitis. Impression: - Internal hemorrhoids that prolapse with straining, but spontaneously regress to the resting position (Grade II) found on digital rectal exam. Very lax anal tone - Diverticulosis in the sigmoid colon and in the descending colon. - Tortuous colon. - Biopsies were taken with a cold forceps from the entire colon for evaluation of microscopic colitis. Recommendation: - Discharge patient to home. - Resume previous diet. - Continue present medications. - Repeat colonoscopy in 10 years for screening purposes. - Telephone my office for pathology results in 1 week. Procedure Code(s): --- Professional --- 28856, Colonoscopy, flexible; with biopsy, single or multiple Diagnosis Code(s): --- Professional --- Z12.11, Encounter for screening for malignant neoplasm of colon K64.1, Second degree hemorrhoids K57.30, Diverticulosis of large intestine without perforation or abscess without bleeding Q43.8, Other specified congenital malformations of intestine CPT copyright 2017 [employer]. All rights reserved. The codes documented in this report are preliminary and upon golf course manager review may be revised to meet current compliance requirements. Tai Joel MD 03/12/2021 9:55:01 AM This report has been signed electronically. Number of Addenda: 0 Note Initiated On: 03/12/2021 9:21 AM
--- NOTE | 2021-03-12 09:55 | OP.CCLET_ITS ---
03/12/2021 Rose Mary Campbell NP [facility] [address] [place] [id number] Re : Colonoscopy procedure for Alina Ramirez Dear Ms. Campbell This procedure was performed on Friday, March 12, 2021. My impressions and recommendations are as follows: Impressions : - Internal hemorrhoids that prolapse with straining, but spontaneously regress to the resting position (Grade II) found on digital rectal exam. Very lax anal tone - Diverticulosis in the sigmoid colon and in the descending colon. - Tortuous colon. - Biopsies were taken with a cold forceps from the entire colon for evaluation of microscopic colitis. Recommendations : - Discharge patient to home. - Resume previous diet. - Continue present medications. - Repeat colonoscopy in 10 years for screening purposes. - Telephone my office for pathology results in 1 week. My findings are described in the full procedure note, which is enclosed. If I can be of further assistance, please feel free to contact me at Doctor phone number(s): Work: . Sincerely, Tai Joel MD 03/12/2021 9:55:01 AM This report has been signed electronically.
[2021-03-12 10:00] VITALS: BP 112/58; BP 131/67; PULSE 61; RESP 16; O2SAT 94
[2021-03-12 10:05] VITALS: BP 114/66; BP 131/67; PULSE 55; RESP 16; TEMP 37; O2SAT 97
[2021-03-12 10:21] VITALS: BP 131/67
== END 2021-03-12 10:27 | disposition home or self-care (01) ==
LOC: EN 07:49 → AC 07:50
PROVIDERS: PCP Nurse Practitioner; Referring Provider Nurse Practitioner; Visit Provider Surgery
PROC: 0DJD8ZZ Inspection of Lower Intestinal Tract, Via Natural or Artificial Opening Endoscopic (ICD-10-PCS; CPT 45378; principal; 2021-03-12 08:55)
DX: K21.00 Gastro-esophageal reflux disease with esophagitis, without bleeding (principal); K29.01 Acute gastritis with bleeding; K29.51 Unspecified chronic gastritis with bleeding; K44.9 Diaphragmatic hernia without obstruction or gangrene; K31.7 Polyp of stomach and duodenum; K31.89 Other diseases of stomach and duodenum; Z12.11 Encounter for screening for malignant neoplasm of colon; K57.30 Diverticulosis of large intestine without perforation or abscess without bleeding; K64.1 Second degree hemorrhoids; E11.9 Type 2 diabetes mellitus without complications; E78.00 Pure hypercholesterolemia, unspecified; G47.30 Sleep apnea, unspecified; Z20.822 Contact with and (suspected) exposure to COVID-19; Z79.82 Long term (current) use of aspirin; Z79.84 Long term (current) use of oral hypoglycemic drugs; Z79.899 Other long term (current) drug therapy; Z86.010 Personal history of colon polyps
CPT/HCPCS: 43239; 45380; 82962; 87426; 88305; 88342; C9803; J7120; J2405

== ENCOUNTER → 2021-04-26 21:37 | Outpatient (CLI) | payer MEDICARE, OTHER, SELFPAY ==
[2021-04-23 20:14] VITALS: BMI 44.8
[2021-04-26 22:18] LABS: Cholesterol 200 mg/dL (200); High Density Lipoprotein 43 mg/dL; Triglycerides 201 mg/dL; Very Low Density Lipoprotein 40 mg/dL (5-40)
== END ==
PROVIDERS: PCP Nurse Practitioner; Referring Provider Nurse Practitioner; Visit Provider Nurse Practitioner
DX: E78.2 Mixed hyperlipidemia (principal)
CPT/HCPCS: 80061

== ENCOUNTER 2021-12-02 15:06 | Outpatient (CLI) | payer MEDICARE, OTHER, SELFPAY ==
--- NOTE | 2021-12-02 15:10 | BI_ITS ---
MAMMOGRAPHY - BILATERAL SCREENING REASON FOR EXAM: Female, 71 years old. Routine annual screening examination. PERTINENT HISTORY: Non-contributory. TECHNIQUE: Digital bilateral breast alen (3D mammographic acquisition) in the CC and MLO projections. 2-D mediolateral oblique (MLO) and craniocaudad (CC) views of both breasts were obtained. CAD: Full Field Digital Mammography with Computer Added Detection was performed. COMPARISON: Comparison is made with prior study dated 09/25/2020 and 09/03/2019. FINDINGS: Breast Composition: There are scattered areas of fibroglandular density. There are no dominant masses or suspicious calcifications. Stable benign-appearing bilateral axillary lymph nodes. No other significant abnormalities are identified. There has been no significant change since the prior study. BI/SCRN MAMM (CAD)W/ALEN BILAT IMPRESSION: Stable bilateral screening mammogram. Yearly follow-up mammogram recommended. (A) ASSESSMENT CATEGORY: BIRADS Category 2: Benign. A letter regarding these results will be sent to the patient by the facility within 30 days. Approximately 10% of breast cancers are not detected by mammography. A normal mammogram should not delay biopsy of a clinically suspicious abnormality. [id number] Electronically Signed: Masoud Bustillos MD at 8:06 EST , Service support ,
== END 2021-12-02 23:59 | disposition short-term general hospital (02) ==
LOC: OPBI 15:07
PROVIDERS: PCP Nurse Practitioner; Referring Provider Nurse Practitioner; Visit Provider Nurse Practitioner
DX: Z12.31 Encounter for screening mammogram for malignant neoplasm of breast (principal)
CPT/HCPCS: 77063; 77067

== ENCOUNTER 2021-12-21 21:52 | Outpatient (CLI) | payer MEDICARE, OTHER, SELFPAY ==
[2021-12-21 22:09] LABS: Absolute Lymphocyte Count 2.68 X10^3/uL (0.83-4.51); Absolute Neutrophil Count 4.1 X10^3/uL (2.0-7.7); Basophil# 0.07 X10^3/uL; Basophil% 0.9 % (0-1); Eosinophil# 0.16 X10^3/uL; Eosinophils% 2.1 % (0-5); Hematocrit 39.8 % (37-47); Hemoglobin 13.5 g/dL (12.0-15.0); Lymphocyte # 2.68 X10^3/ul (0.83-4.51); Lymphocyte % 34.9 % (19-41); Mean Corp Hgb Conc 33.9 g/dL (32-36); Mean Corpuscular Volume 91.3 fL (81-99); Mean Platelet Vol. 9.9 fl (6.2-12.0); Monocyte# 0.67 X10^3/uL; Monocyte% 8.7 % (0-10); NRBC Flagged by Analyzer 0 % (0-5); Neutrophil # 4.07 X10^3/uL (2.7-7.7); Neutrophil % 53.1 % (47-70); Platelet Count 301 K/mm3 (150-450); RBC Distribution Width CV 14.6 % (11.6-14.6); RBC Distribution Width SD 48.7 fl (35.1-43.9); Red Blood Count 4.36 M/mm3 (4.2-5.4); White Blood Count 7.7 K/mm3 (4.4-11.0)
[2021-12-21 22:30] LABS: ALB/GLOB Ratio 1.1 RATIO (0.9-2.4); AST(SGOT) 23 U/L (15-37); Alanine Aminotransfer ALT/SGPT 38 U/L (13-56); Albumin, Serum 3.8 g/dL (3.2-5.0); Alkaline Phosphatase 93 U/L (45-117); Anion Gap 6 (5-15); BUN 13 mg/dL (7-18); BUN/Creat Ratio 13.5 RATIO (10-20); Calcium,Total 9.1 mg/dL (8.5-10.1); Chloride 103 mmol/L (98-107); Cholesterol 199 mg/dL (200); Creatinine, Serum 0.96 mg/dL (0.55-1.02); EST Glomerular Filtration Rate 60 mL/min (>60); Est Glom Filt Rate - Afr Amer 73 mL/min (>60); Globulin 3.5 g/dL (2.2-4.2); Glucose 99 mg/dL (74-106); High Density Lipoprotein 39 mg/dL; Potassium 3.9 mmol/L (3.5-5.1); Protein, Total 7.3 g/dL (6.4-8.2); Sodium Level 139 mmol/L (136-145); Triglycerides 472 mg/dL
[2021-12-21 22:41] LABS: Hemoglobin A1c 5.8 % (3.8-5.6)
== END 2021-12-21 23:59 | disposition short-term general hospital (02) ==
PROVIDERS: PCP Nurse Practitioner; Visit Provider Nurse Practitioner
DX: I10 Essential (primary) hypertension (principal); E78.2 Mixed hyperlipidemia; F32.9 Major depressive disorder, single episode, unspecified; R73.9 Hyperglycemia, unspecified
CPT/HCPCS: 80053; 80061; 83036; 85025

== ENCOUNTER 2023-01-18 22:23 | Outpatient (CLI) | payer MEDICARE, OTHER, SELFPAY ==
[2023-01-18 22:32] LABS: Absolute Lymphocyte Count 2.64 X10^3/uL (0.83-4.51); Absolute Neutrophil Count 4.9 X10^3/uL (2.0-7.7); Basophil# 0.06 X10^3/uL; Basophil% 0.7 % (0-1); Eosinophils% 1.2 % (0-5); Hematocrit 39.5 % (37-47); Hemoglobin 13.2 g/dL (12.0-15.0); Lymphocyte # 2.64 X10^3/ul (0.83-4.51); Lymphocyte % 31.5 % (19-41); Mean Corp Hgb Conc 33.4 g/dL (32-36); Mean Corpuscular Hgb 30.3 pg (27.0-32.0); Mean Corpuscular Volume 90.8 fL (81-99); Mean Platelet Vol. 9.9 fl (6.2-12.0); Monocyte# 0.69 X10^3/uL; Monocyte% 8.2 % (0-10); NRBC Flagged by Analyzer 0 % (0-5); Neutrophil # 4.86 X10^3/uL (2.7-7.7); Neutrophil % 57.9 % (47-70); Platelet Count 309 K/mm3 (150-450); RBC Distribution Width CV 14.2 % (11.6-14.6); RBC Distribution Width SD 47.4 fl (35.1-43.9); Red Blood Count 4.35 M/mm3 (4.2-5.4); White Blood Count 8.4 K/mm3 (4.4-11.0)
[2023-01-18 22:50] LABS: ALB/GLOB Ratio 1.1 RATIO (0.9-2.4); AST(SGOT) 27 U/L (15-37); Alanine Aminotransfer ALT/SGPT 40 U/L (13-56); Albumin, Serum 3.8 g/dL (3.2-5.0); Alkaline Phosphatase 86 U/L (45-117); Anion Gap 7 (5-15); BUN 14 mg/dL (7-18); BUN/Creat Ratio 18.3 RATIO (10-20); Calcium,Total 9.5 mg/dL (8.5-10.1); Chloride 102 mmol/L (98-107); Cholesterol 204 mg/dL (200); Creatinine, Serum 0.76 mg/dL (0.55-1.02); EST Glomerular Filtration Rate 79 mL/min (>60); Est Glom Filt Rate - Afr Amer 95 mL/min (>60); Globulin 3.6 g/dL (2.2-4.2); Glucose 123 mg/dL (74-106); High Density Lipoprotein 37 mg/dL; Potassium 4.1 mmol/L (3.5-5.1); Protein, Total 7.4 g/dL (6.4-8.2); Sodium Level 140 mmol/L (136-145); Triglycerides 465 mg/dL
[2023-01-19 15:22] LABS: Hemoglobin A1c 6.1 % (3.8-5.6)
== END 2023-01-18 23:59 | disposition home or self-care (01) ==
PROVIDERS: PCP Nurse Practitioner; Visit Provider Nurse Practitioner
DX: Z00.00 Encounter for general adult medical examination without abnormal findings (principal); E11.65 Type 2 diabetes mellitus with hyperglycemia; I10 Essential (primary) hypertension; F32.9 Major depressive disorder, single episode, unspecified
CPT/HCPCS: 80053; 80061; 83036; 85025

== ENCOUNTER → 2023-02-17 | Outpatient (CLI) | payer MEDICARE, OTHER, SELFPAY ==
--- NOTE | 2023-02-17 12:34 | BI_ITS ---
MAMMOGRAPHY - BILATERAL SCREENING REASON FOR EXAM: Female, 72 years old. Routine annual screening examination. PERTINENT HISTORY: Non-contributory. TECHNIQUE: Digital bilateral breast alen (3D mammographic acquisition) in the CC and MLO projections. 2-D mediolateral oblique (MLO) and craniocaudad (CC) views of both breasts were obtained. CAD: Full Field Digital Mammography with Computer Added Detection was performed. COMPARISON: Comparison is made with prior examination dated December 02, 2021 and September 25, 2020. FINDINGS: Breast Composition: There are scattered areas of fibroglandular density. There are no dominant masses or suspicious calcifications. Stable benign-appearing bilateral axillary lymph nodes. No other significant abnormalities are identified. There has been no significant change since the prior study. BI/SCRN MAMM (CAD)W/ALEN BILAT IMPRESSION: Stable bilateral screening mammogram. Yearly follow-up mammogram recommended. (A) ASSESSMENT CATEGORY: BIRADS Category 2: Benign. A letter regarding these results will be sent to the patient by the facility within 30 days. Approximately 10% of breast cancers are not detected by mammography. A normal mammogram should not delay biopsy of a clinically suspicious abnormality. [id number] Electronically Signed: Masoud Bustillos MD at 13:33 EDT ,
== END | disposition home or self-care (01) ==
LOC: OPBI 12:34
PROVIDERS: PCP Nurse Practitioner; Visit Provider Nurse Practitioner
DX: Z12.31 Encounter for screening mammogram for malignant neoplasm of breast (principal)
CPT/HCPCS: 77063; 77067

== ENCOUNTER → 2023-05-17 | Outpatient (CLI) | payer MEDICARE, OTHER, SELFPAY ==
[2023-05-17 22:47] LABS: Absolute Lymphocyte Count 2.74 X10^3/uL (0.83-4.51); Absolute Neutrophil Count 4.5 X10^3/uL (2.0-7.7); Basophil# 0.07 X10^3/uL; Basophil% 0.8 % (0-1); Eosinophil# 0.11 X10^3/uL; Eosinophils% 1.3 % (0-5); Hematocrit 41.6 % (37-47); Hemoglobin 13.4 g/dL (12.0-15.0); Lymphocyte # 2.74 X10^3/ul (0.83-4.51); Lymphocyte % 33.3 % (19-41); Mean Corp Hgb Conc 32.2 g/dL (32-36); Mean Corpuscular Hgb 29.6 pg (27.0-32.0); Mean Corpuscular Volume 91.8 fL (81-99); Mean Platelet Vol. 10.1 fl (6.2-12.0); Monocyte# 0.78 X10^3/uL; Monocyte% 9.5 % (0-10); NRBC Flagged by Analyzer 0 % (0-5); Neutrophil # 4.52 X10^3/uL (2.7-7.7); Neutrophil % 54.9 % (47-70); Platelet Count 277 K/mm3 (150-450); RBC Distribution Width CV 14.6 % (11.6-14.6); RBC Distribution Width SD 49.6 fl (35.1-43.9); Red Blood Count 4.53 M/mm3 (4.2-5.4); White Blood Count 8.2 K/mm3 (4.4-11.0)
[2023-05-17 23:07] LABS: ALB/GLOB Ratio 1.1 RATIO (0.9-2.4); AST(SGOT) 25 U/L (15-37); Alanine Aminotransfer ALT/SGPT 34 U/L (13-56); Albumin, Serum 3.9 g/dL (3.2-5.0); Alkaline Phosphatase 91 U/L (45-117); Anion Gap 6 (5-15); BUN 17 mg/dL (7-18); BUN/Creat Ratio 23.1 RATIO (10-20); Calcium,Total 9.7 mg/dL (8.5-10.1); Chloride 101 mmol/L (98-107); Cholesterol 208 mg/dL (200); Creatinine, Serum 0.74 mg/dL (0.55-1.02); EST Glomerular Filtration Rate 82 mL/min (>60); Est Glom Filt Rate - Afr Amer 99 mL/min (>60); Globulin 3.7 g/dL (2.2-4.2); Glucose 91 mg/dL (74-106); High Density Lipoprotein 39 mg/dL; Potassium 3.9 mmol/L (3.5-5.1); Protein, Total 7.6 g/dL (6.4-8.2); Sodium Level 137 mmol/L (136-145); Triglycerides 316 mg/dL; Very Low Density Lipoprotein 63 mg/dL (5-40)
[2023-05-17 23:43] LABS: Hemoglobin A1c 5.9 % (3.8-5.6)
== END | disposition home or self-care (01) ==
PROVIDERS: PCP Nurse Practitioner; Visit Provider Nurse Practitioner
DX: E11.65 Type 2 diabetes mellitus with hyperglycemia (principal); F33.42 Major depressive disorder, recurrent, in full remission; I10 Essential (primary) hypertension
CPT/HCPCS: 80053; 80061; 83036; 85025

== ENCOUNTER → 2023-11-30 | Outpatient (CLI) | payer MEDICARE, OTHER, SELFPAY ==
--- OUTSIDE RECORDS SUMMARY | 2023-11-30 21:58 | XMS RPT_ITS | CCD ---
Author Name Unknown Address [address] [place] [address] Organization [facility] Care Team Providers Care [facility] [place] Name Role Phone Prabhu Javed G Unavailable Unavailable PrabhuJaved Unavailable Unavailable Problems Active Problems Problem Classification Problem Date Documented Da te Episodic/Chronic Unclassified (1 source) Unknown / UNK(Unknown) Onset: 06-07-2017 Past or Other Problems Problem Classification Problem Date Documented Da te Episodic/Chronic Unclassified (1 source) E78.00 Onset: 06-07-2017 Results Test Name Value Interpretation Reference Range Facil ity Encounters Encounter Date Encounter Type Care Provider Facility Start: 12-06-2017 Ambulatory Javed Shin Pelletier Facilit y:[facility] Start: 06-07-2017 Ambulatory Javed Pelletier Facilit y:[facility] Payers Date Payer Category Payer Medicare [id number] Summary Purpose Family History No Family History Records Found Advance Directives No Advanced Directives Records Found Additional Source Comments INFORMATION SOURCE (unrecogn ized section and content) FOR RECORDS PERTAINING TO PATIENTS WHO ARE OR HAVE BEEN ENROLLED IN A CHEMICAL DEPENDENCY/SUBSTANCEABUSE PROGRAM, SOME INFORMATION MAY BE OMITTED. This clinical summary was aggregated from multiple sources. Caution should be exercised in using it in the provision of clinical care. This summary normalizes information from multiple sources, and as a consequence, information in this document may materially change the coding, format and clinical context of patient data. In addition, data may be omitted in some cases. CLINICAL DECISIONS SHOULD BE BASED ON THE PRIMARY CLINICAL RECORDS. [employer] provides no warranty or guarantee of the accuracy or completeness of information in this document.
[2023-11-30 22:05] LABS: Absolute Lymphocyte Count 2.85 X10^3/uL (0.83-4.51); Absolute Neutrophil Count 4.3 X10^3/uL (2.0-7.7); Basophil# 0.09 X10^3/uL; Basophil% 1.1 % (0-1); Eosinophil# 0.18 X10^3/uL; Eosinophils% 2.1 % (0-5); Hematocrit 42.5 % (37-47); Hemoglobin 13.5 g/dL (12.0-15.0); Lymphocyte # 2.85 X10^3/ul (0.83-4.51); Lymphocyte % 33.9 % (19-41); Mean Corp Hgb Conc 31.8 g/dL (32-36); Mean Corpuscular Hgb 29.7 pg (27.0-32.0); Mean Corpuscular Volume 93.4 fL (81-99); Mean Platelet Vol. 9.7 fl (6.2-12.0); Monocyte# 0.92 X10^3/uL; NRBC Flagged by Analyzer 0 % (0-5); Neutrophil # 4.34 X10^3/uL (2.7-7.7); Neutrophil % 51.7 % (47-70); Platelet Count 294 K/mm3 (150-450); RBC Distribution Width CV 14.6 % (11.6-14.6); RBC Distribution Width SD 50.5 fl (35.1-43.9); Red Blood Count 4.55 M/mm3 (4.2-5.4); White Blood Count 8.4 K/mm3 (4.4-11.0)
[2023-11-30 22:26] LABS: ALB/GLOB Ratio 1.1 RATIO (0.9-2.4); AST(SGOT) 20 U/L (15-37); Alanine Aminotransfer ALT/SGPT 38 U/L (13-56); Albumin, Serum 3.8 g/dL (3.2-5.0); Alkaline Phosphatase 95 U/L (45-117); Anion Gap 5 (5-15); BUN 13 mg/dL (7-18); BUN/Creat Ratio 18.7 RATIO (10-20); Calcium,Total 9.5 mg/dL (8.5-10.1); Chloride 102 mmol/L (98-107); Cholesterol 206 mg/dL (200); EST Glomerular Filtration Rate 88 mL/min (>60); Est Glom Filt Rate - Afr Amer 106 mL/min (>60); Globulin 3.6 g/dL (2.2-4.2); Glucose 82 mg/dL (74-106); High Density Lipoprotein 38 mg/dL; Protein, Total 7.4 g/dL (6.4-8.2); Sodium Level 139 mmol/L (136-145); Triglycerides 320 mg/dL; Very Low Density Lipoprotein 64 mg/dL (5-40)
[2023-11-30 22:29] LABS: Hemoglobin A1c 5.6 % (3.8-5.6)
== END | disposition home or self-care (01) ==
PROVIDERS: PCP Nurse Practitioner; Visit Provider Nurse Practitioner
DX: I10 Essential (primary) hypertension (principal); E11.65 Type 2 diabetes mellitus with hyperglycemia; E78.2 Mixed hyperlipidemia; K21.9 Gastro-esophageal reflux disease without esophagitis; F32.9 Major depressive disorder, single episode, unspecified
CPT/HCPCS: 80053; 80061; 83036; 85025

== ENCOUNTER 2024-06-19 17:30 | Outpatient (RCR) | payer SELFPAY | END 2024-06-19 23:59 | LOC: NS 17:30 | PROVIDERS: PCP Nurse Practitioner | DX: Z71.3 Dietary counseling and surveillance (principal) ==

== ENCOUNTER → 2024-07-18 | Outpatient (CLI) | payer MEDICARE, OTHER, SELFPAY ==
--- NOTE | 2024-07-18 08:15 | BI_ITS ---
MAMMOGRAPHY - BILATERAL SCREENING REASON FOR EXAM: Female, 73 years old. Routine annual screening examination. PERTINENT HISTORY: Non-contributory. TECHNIQUE: Digital bilateral breast alen (3D mammographic acquisition) in the CC and MLO projections. 2-D mediolateral oblique (MLO) and craniocaudad (CC) views of both breasts were obtained. CAD: Full Field Digital Mammography with Computer Added Detection was performed. COMPARISON: Comparison is made with prior study dated February 17, 2023 and December 02, 2021. FINDINGS: Breast Composition: There are scattered areas of fibroglandular density. There are no dominant masses or suspicious calcifications. Stable bilateral fat containing axillary lymph nodes. No other significant abnormalities are identified. There has been no significant change since the prior study. BI/SCRN MAMM (CAD)W/ALEN BILAT IMPRESSION: Stable bilateral screening mammogram. Yearly follow-up mammogram recommended. (A) ASSESSMENT CATEGORY: BIRADS Category 2: Benign. A letter regarding these results will be sent to the patient by the facility within 30 days. Approximately 10% of breast cancers are not detected by mammography. A normal mammogram should not delay biopsy of a clinically suspicious abnormality. [id number] Electronically Signed: Masoud Bustillos MD at 9:19 EDT ,
== END | disposition home or self-care (01) ==
LOC: OPBI 08:14
PROVIDERS: PCP Nurse Practitioner; Referring Provider Nurse Practitioner; Visit Provider Nurse Practitioner
DX: Z12.31 Encounter for screening mammogram for malignant neoplasm of breast (principal)
CPT/HCPCS: 77063; 77067

== ENCOUNTER → 2024-11-26 | Outpatient (CLI) | payer MEDICARE, OTHER, SELFPAY ==
[2024-11-26 22:19] LABS: Absolute Lymphocyte Count 3.06 X10^3/uL (0.83-4.51); Absolute Neutrophil Count 4.3 X10^3/uL (2.0-7.7); Basophil# 0.07 X10^3/uL; Basophil% 0.8 % (0-1); Eosinophil# 0.13 X10^3/uL; Eosinophils% 1.5 % (0-5); Hematocrit 41.4 % (37-47); Hemoglobin 13.3 g/dL (12.0-15.0); Lymphocyte # 3.06 X10^3/ul (0.83-4.51); Lymphocyte % 36.2 % (19-41); Mean Corp Hgb Conc 32.1 g/dL (32-36); Mean Corpuscular Hgb 29.5 pg (27.0-32.0); Mean Corpuscular Volume 91.8 fL (81-99); Mean Platelet Vol. 9.8 fl (6.2-12.0); Monocyte# 0.85 X10^3/uL; NRBC Flagged by Analyzer 0 % (0-5); Neutrophil # 4.32 X10^3/uL (2.7-7.7); Neutrophil % 51.1 % (47-70); Platelet Count 297 K/mm3 (150-450); RBC Distribution Width CV 14.5 % (11.6-14.6); RBC Distribution Width SD 48.8 fl (35.1-43.9); Red Blood Count 4.51 M/mm3 (4.2-5.4); White Blood Count 8.5 K/mm3 (4.4-11.0)
[2024-11-26 22:39] LABS: ALB/GLOB Ratio 1.1 RATIO (0.9-2.4); AST(SGOT) 38 U/L (15-37); Alanine Aminotransfer ALT/SGPT 50 U/L (13-56); Alkaline Phosphatase 104 U/L (45-117); Anion Gap 6 (5-15); BUN 16 mg/dL (7-18); Calcium,Total 9.7 mg/dL (8.5-10.1); Chloride 100 mmol/L (98-107); Cholesterol 193 mg/dL (200); Creatinine, Serum 0.73 mg/dL (0.55-1.02); EST Glomerular Filtration Rate 83 mL/min (>60); Est Glom Filt Rate - Afr Amer 101 mL/min (>60); Globulin 3.6 g/dL (2.2-4.2); Glucose 91 mg/dL (74-106); High Density Lipoprotein 43 mg/dL; Potassium 4.1 mmol/L (3.5-5.1); Protein, Total 7.6 g/dL (6.4-8.2); Sodium Level 136 mmol/L (136-145); Triglycerides 284 mg/dL; Very Low Density Lipoprotein 57 mg/dL (5-40)
[2024-11-26 22:56] LABS: Hemoglobin A1c 6.1 % (3.8-5.6)
== END | disposition home or self-care (01) ==
PROVIDERS: PCP Nurse Practitioner; Referring Provider Nurse Practitioner; Visit Provider Nurse Practitioner
DX: G47.33 Obstructive sleep apnea (adult) (pediatric) (principal); E11.65 Type 2 diabetes mellitus with hyperglycemia; F33.42 Major depressive disorder, recurrent, in full remission; I10 Essential (primary) hypertension; E78.2 Mixed hyperlipidemia
CPT/HCPCS: 80053; 80061; 83036; 85025

== ENCOUNTER → 2025-07-29 | Outpatient (CLI) | payer MEDICARE, OTHER, SELFPAY ==
[2025-07-29 22:36] LABS: Cholesterol 327 mg/dL (<=200); Low Density Lipoprotein Calc. 184 mg/dL; Triglycerides 517 mg/dL; Very Low Density Lipoprotein 103 mg/dL (5-40); Vitamin B12 645 pg/mL (180-914); cholesterol:hdl ratio screen 8.26
== END | disposition home or self-care (01) ==
PROVIDERS: PCP Nurse Practitioner; Visit Provider Nurse Practitioner
DX: E11.65 Type 2 diabetes mellitus with hyperglycemia (principal); E78.2 Mixed hyperlipidemia; E55.9 Vitamin D deficiency, unspecified
CPT/HCPCS: 80061; 82607

== ENCOUNTER → 2025-08-15 | Outpatient (CLI) | payer MEDICARE, OTHER, SELFPAY ==
--- NOTE | 2025-08-15 11:56 | BI_ITS ---
EXAM: SCRN MAMM (CAD)W/ALEN BILAT DATE: 08/15/2025 CLINICAL HISTORY: F, Age 74 y/o , SCREENING TECHNIQUE: Procedure Code: [id number] Modality: MG Procedure: SCRN MAMM (CAD)W/ALEN BILAT COMPARISON: Prior exam(s) were compared FINDINGS: TISSUE DENSITY: The breasts are heterogeneously dense, which may obscure small masses. Bilateral Breast Mammographic Findings: No suspicious masses, calcifications or other abnormalities are identified. BI/SCRN MAMM (CAD)W/ALEN BILAT IMPRESSION: No mammographic evidence of malignancy in either breast OVERALL FINAL ASSESSMENT BI-RADS 1: NEGATIVE. RECOMMENDATION: Routine annual follow-up in 1 Year Additional Recommendation none A letter with findings and recommendations will be mailed to the patient. Reading Location: [id number]
--- NOTE | 2025-08-15 11:56 | BI_ITS ---
EXAM: SCRN MAMM (CAD)W/ALEN BILAT DATE: 08/15/2025 CLINICAL HISTORY: F, Age 74 y/o , SCREENING TECHNIQUE: Procedure Code: BISMWCADBTOM Modality: MG Procedure: SCRN MAMM (CAD)W/ALEN BILAT COMPARISON: Prior exam(s) were compared FINDINGS: TISSUE DENSITY: The breasts are heterogeneously dense, which may obscure small masses. Bilateral Breast Mammographic Findings: No suspicious masses, calcifications or other abnormalities are identified. BI/SCRN MAMM (CAD)W/ALEN BILAT IMPRESSION: No mammographic evidence of malignancy in either breast OVERALL FINAL ASSESSMENT BI-RADS 1: NEGATIVE. RECOMMENDATION: Routine annual follow-up in 1 Year Additional Recommendation none A letter with findings and recommendations will be mailed to the patient. Reading Location: [id number]
--- OUTSIDE RECORDS SUMMARY | 2025-08-15 12:17 | XMS RPT_ITS | CCD ---
Author Organization [facility] Care Team Providers Care Whip Sawyer Name Role Phone Javed Pelletier Unavailable Unavailable Javed Pelletier Unavailable Unavailable Adrian DELI CUTTER SLICER, Rose Mary Attending Unavailable Adrian DELI CUTTER SLICER, Rose Mary Referring Unavailable Adrian DELI CUTTER SLICER, Rose Mary Primary Care Unavailable Adrian DELI CUTTER SLICER, Rose Mary Primary Care Unavailable Adrian DELI CUTTER SLICER, Rose Mary Attending Unavailable Adrian DELI CUTTER SLICER, Rose Mary Primary Care Unavailable Adrian DELI CUTTER SLICER, Rose Mary Attending Unavailable Adrian DELI CUTTER SLICER, Rose Mary Referring Unavailable Allergies Allergy Classification Reported Allergen(s) Allergy Type Date of Onset Reaction(s) Facility (1 source) atorvastatin Drug Allergy 07-31-[address] [facility] Repository Medications Current Medications Medication Drug Class(es) Dates Sig (Normalized) Sig (Original) Antiarthritic Combination No.2 (Glucosamine-Chondro itin) 900 mg tablet (3 sources) Start: 09-24-2019 take 1 tablet by mouth once daily Antiarthritic Combination No.2 (Glucosamine-Chondr oitin) 900 mg tablet Active 900 MG PO DAILY September 24, 2019 1:00am Start: 09-24-2019 take 1 tablet by frida th once daily Antiarthritic Combination No.2 (Glucosamine-Chondroitin) 900 mg tablet Active 900 MG PO DAILY September 24, 2019 12:00am aspirin 81 mg delayed release oral tablet (3 sources) Platelet Aggregation Inhibitor, Nonsteroidal Anti-inflammatory Drug Start: 09-24-2019 take 1 tablet by mouth once daily Aspirin (Adult Aspirin Regimen) 81 mg tablet,delayed release (DR/EC) Active 81 MG PO DAILY September 24, 2019 12:00am atorvastatin 20 mg oral tablet (20 sources) HMG-CoA Reductase Inhibitor Start: 12-21-2021 End: 11-30-2023 take 20 mg by mouth once daily Atorvastatin Active 20 MG PO DAILY November 30, 2023 4:08pm Start: 02-08-2021 End: 12-21-2021 take 40 mg by mouth once daily Atorvastatin Discontinu ed 40 MG PO DAILY February 08, 2021 12:15pm December 21, 2021 3:18pm Start: 10-06-2017 End: 02-08-2021 take 20 mg by mouth once daily Atorvastatin Discontinu ed 20 MG PO DAILY 90 January 17, 2019 11:50am January 27, 2020 1:53pm calcium ascorbate 500 mg oral tablet (3 sources) Start: 09-24-2019 take 500 mg by mouth twice daily Ascorbate Calcium (Vitamin C) Active 500 MG PO TWICE A DAY September 24, 2019 12:00am calcium carbonate 1500 mg oral tablet (3 sources) Start: 09-24-2019 take 600 mg by mouth twice daily Calcium Carbonate Active 600 MG PO TWICE A DAY September 24, 2019 12:00am Fish,Flaxseed Oil-E.Prim-Bcurr (Fish, Flax [place]bor[place] Oil(Prim)) 400-400-200 mg capsule (6 sources) Start: 12-04-2019 take 1 capsule by mouth twice daily Fish,Flaxseed Oil-E.Prim-Bcurr (Fish, Flax [place]age Oil(Prim)) 400-400-200 mg capsule Active 1 CAP PO TWICE A DAY December 04, 2019 11:36am Start: 12-04-2019 take 1 capsule by mo [facility] twice daily Fish,Flaxseed Oil-E.Prim-Bcurr (Fish, Flax [place] Oil(Prim)) 400-400-200 mg capsule Active 1 CAP PO TWICE A DAY December 04, 2019 10:36am Start: 09-24-2019 End: 12-04-2019 take 1 capsule by mouth once daily Fish,Flaxseed Oil-E.Prim-Bcurr (Fish, Flax [place] Oil(Prim)) 400-400-200 mg capsule Discontinued 1 CAP PO DAILY September 24, 2019 1:00am December 04, 2019 11:38am Start: 09-24-2019 End: 12-04-2019 take 1 capsule by mouth once daily Fish,Flaxseed Oil-E.Prim-Bcurr (Fish, Flax [place] Oil(Prim)) 400-400-200 mg capsule Discontinued 1 CAP PO DAILY September 24, 2019 12:00am December 04, 2019 10:38am FLUoxetine 20 mg oral capsule (19 sources) Serotonin Reuptake Inhibitor Start: 01-17-2019 End: 11-30-2023 take 20 mg by mouth once daily Fluoxetine Active 20 MG PO DAILY November 30, 2023 4:08pm Start: 10-06-2017 End: 01-17-2019 take 10 mg by mouth once daily Fluoxetine Discontinued 10 MG PO DAILY October 06, 2017 12:00am January 17, 2019 11:49am Ginkgo Biloba (3 sources) Start: 09-24-2019 take 120 mg by mouth once daily Ginkgo Biloba Active 120 MG PO DAILY September 24, 2019 1:00am Start: 09-24-2019 take 120 mg by mouth once bethany y Ginkgo Biloba Active 120 MG PO DAILY September 24, 2019 12:00am metroNIDAZOLE 7.5 mg/ml topical cream (1 source) Nitroimidazole Antimicrobial Start: 08-25-2023 Metronidazole (Metrocream) 0.75 % cream Active 1 APPLIC TOPICAL TWICE A DAY August 24, 2023 11:00pm Multivitamin preparation (3 sources) Start: 09-24-2019 take 1 tablet by mouth once daily Multivitamin Active 1 TABLET PO DAILY September 24, 2019 1:00am Start: 09-24-2019 take 1 tablet by frida once daily Multivitamin Active 1 TABLET PO DAILY September 24, 2019 12:00am potassium gluconate 2.5 meq oral tablet (6 sources) Start: 12-04-2019 take 99 mg by mouth twice daily Potassium Active 99 MG PO TWICE A DAY December 04, 2019 10:36am Start: 09-24-2019 End: 12-04-2019 take 10 mEq by mouth twice daily Potassium Discontinued 10 MEQ PO TWICE A DAY September 24, 2019 12:00am December 04, 2019 10:38am psyllium 520 mg oral capsule (3 sources) Start: 09-24-2019 Psyllium Husk (Daily Fiber) 0.52 gram capsule Active 1.04 GM PO TWICE A DAY September 24, 2019 12:00am Semaglutide (2 sources) Start: 05-17-2023 Semaglutide Ac tive 2 MG SC EVERY WEEK May 16, 2023 11:00pm Start: 05-17-2023 Semaglutide Ac tive 2 MG SC EVERY WEEK May 17, 2023 12:00am Semaglutide (1 source) Start: 11-30-2023 Semaglutide (O zempic) 0.25 mg or 0.5 mg (2 mg/3 mL) pen injector Active 0.5 MG SC EVERY WEEK 9.568 90 November 30, 2023 12:00am vitamin e 180 mg oral capsule (3 sources) Start: 09-24-2019 take 400 [IU] by mouth once daily Vitamin E (Dl, Acetate) Active 400 UNIT PO DAILY September 24, 2019 12:00am Completed/Discontinued Medications Medication Drug Class(es) Dates Sig (Normalized) Sig (Original) acetaminophen 325 mg / oxyCODONE hydrochloride 5 mg oral tablet (3 sources) Opioid Agonist Start: 10-06-2017 End: 10-08-2018 take 1 tablet by mouth every six hours as needed Oxycodone-Acetamin ophen Discontinued 1 TABLET PO EVERY 6 HOURS NEEDED October 06, 2017 12:00am October 08, 2018 3:47pm amoxicillin 875 mg / clavulanate 125 mg oral tablet (3 sources) Penicillin-class Antibacterial Start: 12-24-2020 End: 01-06-2021 take 875 mg by mouth every twelve hours Amoxicillin-Pot Clavulanate Discontinued 875 MG PO Q12H December 24, 2020 12:00am January 06, 2021 3:03pm cefuroxime 500 mg oral tablet (3 sources) Cephalosporin Antibacterial Start: 01-11-2023 End: 01-18-2023 take 500 mg by mouth twice daily Cefuroxime Axetil Discontinued 500 MG PO TWICE A DAY January 11, 2023 12:00am January 18, 2023 3:31pm doxycycline hyclate 100 mg oral capsule (4 sources) Tetracycline-class Drug Start: 08-25-2023 End: 09-08-2023 take 100 mg by mouth twice daily Doxycycline Hyclate Discontinued 100 MG PO TWICE A DAY 28 August 24, 2023 11:00pm September 07, 2023 11:04pm Start: 03-15-2019 End: 09-10-2019 take 100 mg by mouth twice daily Doxycycline Hyclate Discontinued 100 MG PO TWICE A DAY 60 March 14, 2019 11:00pm September 10, 2019 3:32pm famotidine 40 mg oral tablet (10 sources) Histamine-2 Receptor Antagonist Start: 04-26-2021 End: 11-30-2023 take 40 mg by mouth once daily Famotidine Discontinued 40 MG PO DAILY 90 March 11, 2022 12:18pm January 18, 2023 3:34pm hydroCHLOROthiazide 25 mg oral tablet (19 sources) Thiazide Diuretic Start: 10-06-2017 End: 11-30-2023 take 25 mg by mouth once daily Hydrochlorothiazide Discontinued 25 MG PO DAILY 90 January 17, 2019 11:49am January 27, 2020 1:53pm metFORMIN hydrochloride 500 mg oral tablet (17 sources) Biguanide Start: 05-17-2023 End: 11-30-2023 take 500 mg by mouth once daily Metformin Discontinued 500 MG PO DAILY May 17, 2023 2:27pm November 30, 2023 4:07pm Start: 12-21-2021 End: 05-17-2023 take 500 mg by mouth twice daily Metformin Discontinued 500 MG PO TWICE A DAY 180 January 18, 2023 3:34pm May 17, 2023 2:29pm Start: 12-21-2021 End: 12-21-2021 take 500 mg by mouth once daily Metformin Discontinued 500 MG PO DAILY December 21, 2021 3:10pm December 21, 2021 3:18pm Start: 02-24-2021 End: 12-21-2021 take 250 mg by mouth once daily Metformin Discontinued 250 MG PO DAILY February 24, 2021 10:45am December 21, 2021 3:10pm Start: 01-07-2021 End: 02-24-2021 take 500 mg by mouth twice daily Metformin Discontinued 500 MG PO TWICE A DAY 180 January 07, 2021 12:00am February 24, 2021 10:45am mupirocin 0.02 mg/mg topical ointment (3 sources) RNA Synthetase Inhibitor Antibacterial Start: 12-28-2020 End: 01-06-2021 Mupirocin Discontinued 1 APPLIC TOPICAL TWICE A DAY December 28, 2020 12:00am January 06, 2021 3:04pm omeprazole 40 mg delayed release oral capsule (3 sources) Proton Pump Inhibitor Start: 03-12-2021 End: 04-26-2021 take 40 mg by mouth once daily Omeprazole Discontinued 40 MG PO DAILY 90 March 11, 2021 11:00pm April 26, 2021 2:02pm ondansetron 8 mg disintegrating oral tablet (3 sources) Serotonin-3 Receptor Antagonist Start: 10-06-2017 End: 10-08-2018 take 8 mg by mouth every eight hours as needed Ondansetron Discontinued 8 MG PO EVERY 8 HOURS NEEDED October 06, 2017 12:00am October 08, 2018 3:47pm triamcinolone acetonide 5 mg/ml topical cream (3 sources) Corticosteroid Start: 10-08-2018 End: 09-24-2019 Triamcinolone Acetonide Discontinued 1 APPLIC TOPICAL daily October 08, 2018 12:00am September 24, 2019 1:54pm vitamin b12 1 mg/ml injectable solution (12 sources) Vitamin B12 Start: 04-26-2021 End: 05-17-2023 inject 1000 ug by intramuscular injection every month Cyanocobalamin (Vitamin B-12) Discontinued 1000 MCG IM EVERY MONTH 6 December 21, 2021 3:15pm May 17, 2023 2:26pm Start: 01-06-2021 End: 02-19-2021 inject 1000 ug by intramuscular injection every other week Cyanocobalamin (Vitamin B-12) Discontinued 1000 MCG IM every 2 weeks 6 January 06, 2021 3:05pm February 19, 2021 8:48am Start: 06-12-2020 End: 01-06-2021 inject 100 ug by intramuscular injection every other week Cyanocobalamin (Vitamin B-12) Discontinued 100 MCG IM every 2 weeks 0.7 90 June 11, 2020 11:00pm January 06, 2021 3:07pm Problems Active Problems Problem Classification Problem Date Documented Da te Episodic/Chronic Allergic reactions (3 sources) Atopic dermatitis; Translations: [Atopic dermatitis, unspecified] 03-12-2021 Chronic Cardiac dysrhythmias (3 sources) Palpitations; Translations: [Palpitations] 03-12-2021 Episodic Diabetes mellitus with complications (4 sources) Type II diabetes mellitus uncontrolled; Translations: [Uncontrolled type 2 diabetes mellitus] Onset: 08-02-2022 Chronic Diabetes mellitus without complication (3 sources) Hyperglycemia; Translations: [Hyperglycemia, unspecified] 03-12-2021 Episodic Disorders of lipid metabolism (3 sources) Hyperlipidemia; Translations: [Hyperlipidemia, unspecified] 03-12-2021 Chronic E Codes: Adverse effects of medical drugs (3 sources) Metformin adverse reaction; Translations: [Adverse effect of insulin and oral hypoglycemic [antidiabetic] drugs, initial encounter] 03-12-2021 Episodic Esophageal disorders (3 sources) Gastroesophageal reflux disease; Translations: [Gastro-esophageal reflux disease without esophagitis] 03-12-2021 Chronic Essential hypertension (3 sources) Hypertensive disorder; Translations: [Essential (primary) hypertension] 08-02-2022 Chronic Mood disorders (3 sources) Depressive disorder; Translations: [Depression] 08-02-2022 Chronic Open wounds of extremities (3 sources) Cat bite - wound; Translations: [Open bite of unspecified finger without damage to nail, initial encounter] 03-12-2021 Episodic Other and ill-defined heart disease (3 sources) Diastolic dysfunction; Translations: [Other ill-defined heart diseases] 02-08-2021 Chronic Other and unspecified benign neoplasm (3 sources) History of polyp of colon; Translations: [Personal history of colonic polyps] 02-08-2021 Episodic Other circulatory disease (3 sources) Finding of sensation of pharynx; Translations: [Other specified symptoms and signs involving the circulatory and respiratory systems] 03-12-2021 Episodic Other gastrointestinal disorders (3 sources) Diarrhea; Translations: [Diarrhea, unspecified] 03-12-2021 Episodic Other inflammatory condition of skin (1 source) Rosacea; Translations: [Rosacea, unspecified] 08-25-2023 Chronic Other inflammatory condition of skin (1 source) Perioral dermatitis; Translations: [Perioral dermatitis] 08-25-2023 Chronic Other injuries and conditions due to external causes (3 sources) Open wound with complication; Translations: [Other injury of unspecified body region, initial encounter] 03-12-2021 Episodic Other nutritional; endocrine; and metabolic disorders (3 sources) Weight gain; Translations: [Abnormal weight gain] 03-12-2021 Episodic Other screening for suspected conditions (not mental disorders or infectious disease) (4 sources) Patient encounter status; Translations: [Encounter for screening mammogram for malignant neoplasm of breast] Onset: 10-29-2021 Episodic Other upper respiratory infections (3 sources) Maxillary sinusitis; Translations: [Chronic maxillary sinusitis] 01-11-2023 Chronic Otitis media and related conditions (3 sources) Acute bilateral otitis media ; Translations: [Otitis media, unspecified, bilateral] 01-11-2023 Episodic Residual codes; unclassified (6 sources) Sleep apnea; Translations: [Sleep apnea, unspecified] 03-12-2021 Chronic Residual codes; unclassified (1 source) Obstructive sleep apnea (adult) (pediatric); Translations: [Obstructive sleep apnea (adult) (pediatric)] Onset: Chronic Residual codes; unclassified (3 sources) Edema; Translations: [Edema, unspecified] 03-12-2021 Episodic Spondylosis; intervertebral disc disorders; other back problems (3 sources) Backache; Translations: [Dorsalgia, unspecified] 03-12-2021 Episodic Superficial injury; contusion (3 sources) Tick bite; Translations: [Insect bite (nonvenomous) of abdominal wall, initial encounter] 03-12-2021 Episodic Unclassified (1 source) Unknown / UNK(Unknown) Onset: 7 Past or Other Problems Problem Classification Problem Date Documented Da te Episodic/Chronic Unclassified (1 source) E78.00 Onset: 06-07-2017 Results Test Name Value Interpretation Reference Range Facility Lipid Profileon 07-29-2025 CHOL:HDL 8.[address] [facility] Comment on above: Performed By: #### L 500.4100, L503.0106 #### [facility] [address] [place], [place], [address] (077) Cholesterol [Mass/Vol] 327 mg/dL High <=200 [facility] Comment on above: Result Comment: Chol esterol level, Desirable <200 mg/dL Borderline high cholesterol 200-239 mg/dL High cholesterol >=240 mg/dL Recommendations of the NCEP Adult Treatment Panel for the following risk-cutoff thresholds for the [place] population. Performed By: #### L 500.4100, L503.0106 #### [facility] [address] [place], [address] Cholesterol in HDL [Mass/Vol] 40 mg/dL Normal [facility] Comment on above: Result Comment: Marizol onal Cholesterol Education Program (NCEP) guidelines: <40 mg/dL: Low HDL-cholesterol (major risk factor for CHD) >= 60 mg/dL: High HDL-cholesterol (negative risk factor for CHD) HDL-cholesterol is affected by a number of factors, e.g. smoking, exercise, hormones, sex and age. Performed By: #### L 500.4100, L503.0106 #### [facility] [address] [place], [address] Cholesterol in LDL [Mass/Vol] 184 mg/dL Normal [facility] Comment on above: Result Comment: Bord odgiec=232-500 mg/dL Higher Hvca=589 mg/dL or greater Friedwald Equation for LDL-C Performed By: #### L 500.4100, L503.0106 #### [facility] [address] [place], [address] Cholesterol in VLDL [Mass/Vol] 103 mg/dL High 5-[address] [facility] Comment on above: Performed By: #### L 500.4100, L503.0106 #### [facility] [address] [place], [address] Triglyceride [Mass/Vol] 517 mg/dL High [facility] Comment on above: Result Comment: The drugs N-Acetylcysteine and Metamizole may falsely depress this assay. Normal range: <150 mg/dL Borderline High: 150-199 mg/dL High: 200-499 mg/dL Very High: >500 mg/dL Performed By: #### L 500.4100, L503.0106 #### [facility] [address] [place], [address] Vitamin B12on 07-29-2025 Cobalamin (Vitamin B12) [Mass/Vol] 645 pg/mL Normal 180-[address] [facility] Comment on above: Performed By: #### L 500.4100, L503.0106 #### [facility] [address] [place], [address] CBC W/Diff, Automatedon 01-0 Absolute Lymph 3.06 X10 3/uL Normal 0.83-4.[address] [facility] Comment on above: Performed By: #### L 500.4100, L500.4050, L501.9985, L100.0100 #### [facility] [address] [place], [address] Absolute Neut 4.3 X10 3/uL Normal 2.0-7.[address] [facility] Comment on above: Performed By: #### L 500.4100, [id number], [id number], L100.0100 #### [facility] [address] [place], [address] Basophils/100 WBC (Bld) 0.8 % Normal 0-1 [facility] Comment on above: Performed By: #### L 500.4100, [id number], [id number], L100.0100 #### [facility] [address] [place], [address] Eosinophils/100 WBC (Bld) 1.5 % Normal 0-[address] [facility] Comment on above: Performed By: #### L 500.4100, [id number], [id number], L100.0100 #### [facility] [address] [place], [address] Erythrocyte distribution width (RBC) [Ratio] 14.5 % Normal 11.6-14.[address] [facility] Comment on above: Performed By: #### L 500.4100, [id number], [id number], L100.0100 #### [facility] [address] [place], [address] Hematocrit (Bld) [Volume fraction] 41.4 % Normal 37-[address] [facility] Comment on above: Performed By: #### L 500.4100, [id number], [id number], L100.0100 #### [facility] [address] [place], [address] Hemoglobin (Bld) [Mass/Vol] 13.3 g/dL Normal 12.0-15.[address] [facility] Comment on above: Performed By: #### L 500.4100, [id number], [id number], L100.0100 #### [facility] [address] [place], [address] IG% 0.400 Normal 0.0-0.[address] [facility] Comment on above: Result Comment: IG% - Immature Granulocytes (promyelocytes, myelocytes and metamyelocytes) > 1% indicates that a LEFT SHIFT is Present. Performed By: #### L 500.4100, [id number], [id number], L100.0100 #### [facility] [address] [place], [address] Lymphocytes/100 WBC (Bld) 36.2 % Normal 19-[address] [facility] Comment on above: Performed By: #### L 500.4100, [id number], [id number], L100.0100 #### [facility] [address] [place], [address] MCH (RBC) [Entitic mass] 29.5 pg Normal 27.0-32.[address] [facility] Comment on above: Performed By: #### L 500.4100, [id number], [id number], L100.0100 #### [facility] [address] [place], [address] MCHC (RBC) [Mass/Vol] 32.1 g/dL Normal 32-36 [facility] Comment on above: Performed By: #### L 500.4100, [id number], [id number], L100.0100 #### [facility] [address] [place], [address] MCV (RBC) [Entitic vol] 91.8 fL Normal 81-99 [facility] Comment on above: Performed By: #### L 500.4100, [id number], [id number], L100.0100 #### [facility] [address] [place], [address] Monocytes/100 WBC (Bld) 10.0 % Normal 0-10 [facility] Comment on above: Performed By: #### L 500.4100, [id number], [id number], L100.0100 #### [facility] [address] [place], [address] Neutrophils/100 WBC (Bld) 51.1 % Normal 47-[address] [facility] Comment on above: Performed By: #### L 500.4100, [id number], [id number], L100.0100 #### [facility] [address] [place], [address] Nucleated RBC (Bld) [#/Vol] 0 10*3/uL Normal 0-[address] [facility] Comment on above: Performed By: #### L 500.4100, [id number], [id number], L100.0100 #### [facility] [address] [place], [address] Platelet mean volume (Bld) [Entitic vol] 9.8 fL Normal 6.2-12.[address] [facility] Comment on above: Performed By: #### L 500.4100, [id number], [id number], L100.0100 #### [facility] [address] [place], [address] Platelets (Bld) [#/Vol] 297 10*3/uL Normal 150-[address] [facility] Comment on above: Performed By: #### L 500.4100, [id number], [id number], L100.0100 #### [facility] [address] [place], [address] RBC (Bld) [#/Vol] 4.51 10*6/uL Normal 4.2-5.4 [facility] Comment on above: Performed By: #### L 500.4100, [id number], [id number], L100.0100 #### [facility] [address] [place], [address] RDW SD 48.8 fl High 35.1-43.[address] [facility] Comment on above: Performed By: #### L 500.4100, [id number], [id number], L100.0100 #### [facility] [address] [place], [address] WBC (Bld) [#/Vol] 8.5 10*3/uL Normal 4.4-11.0 [facility] Comment on above: Performed By: #### L 500.4100, [id number], [id number], L100.0100 #### [facility] [address] [place], [address] Comprehensive Metabolic Prof [facility] 11-26-2024 Albumin [Mass/Vol] 4.0 g/dL Normal 3.2-5.0 [facility] Comment on above: Performed By: #### L 500.4100, [id number], [id number], L100.0100 #### [facility] [address] [place], [address] Albumin/Globulin [Mass ratio] 1.1 {ratio} Normal 0.9-2.[address] [facility] Comment on above: Performed By: #### L 500.4100, [id number], [id number], L100.0100 #### [facility] [address] [place], [address] ALK P 104 U/L Normal 45-[address] [facility] Comment on above: Performed By: #### L 500.4100, [id number], [id number], L100.0100 #### [facility] [address] [place], [address] ALT [Catalytic activity/Vol] 50 U/L Normal 13-[address] [facility] Comment on above: Performed By: #### L 500.4100, [id number], [id number], L100.0100 #### [facility] [address] [place], [address] AST [Catalytic activity/Vol] 38 U/L High 15-[address] [facility] Comment on above: Performed By: #### L 500.4100, [id number], [id number], L100.0100 #### [facility] [address] [place], [address] Bilirubin [Mass/Vol] 0.50 mg/dL Normal 0.20-1.00 [facility] Comment on above: Result Comment: For patients on eltrombopag therapy, use of Dimension [place] TBIL is not recommended. Performed By: #### L 500.4100, [id number], [id number], L100.0100 #### [facility] [address] [place], [address] BUN/CRE 22.0 RATIO High 10-[address] [facility] [facility] Comment on above: Performed By: #### L 500.4100, L500.4050, L501.9985, L100.0100 #### [facility] [address] [place], [address] CA,Total 9.7 mg/dL Normal 8.5-10.[address] [facility] Comment on above: Performed By: #### L 500.4100, L500.4050, L501.9985, L100.0100 #### [facility] [address] [place], [address] Chloride [Moles/Vol] 100 mmol/L Normal 98-107 [facility] Comment on above: Performed By: #### L 500.4100, L500.4050, [id number], L100.0100 #### [facility] [address] [place], [address] CO2 [Moles/Vol] 31.0 mmol/L Normal 21.0-32.[address] [facility] Comment on above: Performed By: #### L 500.4100, L500.4050, [id number], L100.0100 #### [facility] [address] [place], [address] Creatinine [Mass/Vol] 0.73 mg/dL Normal 0.55-1.02 [facility] Comment on above: Result Comment: The validity of the calculated GFR GFRAA in patients over 70 years has not been determined. Clinical correlation is essential. Performed By: #### L 500.4100, L500.4050, L501.9985, L100.0100 #### [facility] [address] [place], [address] EST GFR - AA 101 mL/min Normal >[address] [facility] Comment on above: Result Comment: Afri can Australian GFR Calc Performed By: #### L 500.4100, L500.4050, [id number], L100.0100 #### [facility] [address] [place], [address] GAP 6 Normal 5-[address] [facility] Comment on above: Performed By: #### L 500.4100, L500.4050, [id number], L100.0100 #### [facility] [address] [place], [address] GFR/1.73 sq M.predicted among non-blacks MDRD (S/P/Bld) [Vol rate/Area] 83 mL/min/{1.73_m2} Normal >[address] [facility] Comment on above: Result Comment: Non- GFR Calc Performed By: #### L 500.4100, L500.4050, L501.9985, L100.0100 #### [facility] [address] [place], [address] Globulin (S) [Mass/Vol] 3.6 g/dL Normal 2.2-4.2 [facility] Comment on above: Performed By: #### L 500.4100, L500.4050, [id number], L100.0100 #### [facility] [address] [place], [address] Glucose [Mass/Vol] 91 mg/dL Normal 74-106 [facility] Comment on above: Performed By: #### L 500.4100, L500.4050, [id number], L100.0100 #### [facility] [address] [place], [address] Potassium [Moles/Vol] 4.1 mmol/L Normal 3.5-5.1 [facility] Comment on above: Performed By: #### L 500.4100, L500.4050, [id number], L100.0100 #### [facility] [address] [place], [address] Sodium [Moles/Vol] 136 mmol/L Normal 136-145 [facility] Comment on above: Performed By: #### L 500.4100, L500.4050, [id number], L100.0100 #### [facility] [address] [place], [address] T PROT 7.6 g/dL Normal 6.4-8.[address] [facility] Comment on above: Performed By: #### L 500.4100, [id number], [id number], L100.0100 #### [facility] [address] [place], [address] Urea nitrogen [Mass/Vol] 16 mg/dL Normal 7-[address] [facility] Comment on above: Performed By: #### L 500.4100, L500.4050, [id number], L100.0100 #### [facility] [address] [place], [address] Hemoglobin A1con 11-26-2024 HbA1c (Bld) [Mass fraction] 6.1 % High 3.8-5.[address] [facility] Comment on above: Result Comment: Norm al < 5.7 % Prediabetic 5.7 - 6.4 % Diabetic >or= 6.5 % Please note range changes. Performed By: #### L 500.4100, L500.4050, [id number], L100.0100 #### [facility] [address] [place], [address] Lipid Profileon 11-26-2024 Cholesterol [Mass/Vol] 193 mg/dL Normal 200 [facility] Comment on above: Result Comment: <200 mg/dL Desirable 200-240 mg/dL Borderline >240 mg/dL High Risk Performed By: #### L 500.4100, L500.4050, [id number], L100.0100 #### [facility] [address] [place], [address] Cholesterol in HDL [Mass/Vol] 43 mg/dL Normal [facility] Comment on above: Result Comment: The drugs N-Acetylcysteine and Metamizole may falsely depress this assay. Reference Range HDL <40 mg/dL Low HDL Cholesterol HDL >or= 60 mg/dL High HDL Cholesterol Performed By: #### L 500.4100, L500.4050, [id number], L100.0100 #### [facility] [address] [place], [address] Cholesterol in LDL [Mass/Vol] 93 mg/dL Normal 0-[address] [facility] Comment on above: Performed By: #### L 500.4100, L500.4050, [id number], L100.0100 #### [facility] [address] [place], [address] Cholesterol in VLDL [Mass/Vol] 57 mg/dL High 5-[address] [facility] Comment on above: Performed By: #### L 500.4100, L500.4050, [id number], L100.0100 #### [facility] [address] [place], [address] Triglyceride [Mass/Vol] 284 mg/dL High [facility] Comment on above: Result Comment: The drugs N-Acetylcysteine and Metamizole may falsely depress this assay. Serum Triglycerides Reference Interval Normal <150 mg/dL Borderline high 150 - 199 mg/dL High 200 - 499 mg/dL Very High > or = 500 mg/dL Performed By: #### L 500.4100, L500.4050, L501.9985, L100.0100 #### [facility] [address] [place], [address] Absolute lymphocyte countOrd ered By: Rose Mary Campbell on 11-30-2023 Lymphocytes Auto (Unsp spec) [#/Vol] 2.85 10*3/uL 0.83-4.[address] [facility] Basophil percentageOrdered B y: Rose Mary Campbell on 11-30-2023 Basophils/100 WBC (Bld) 1.1 % 0-1 [facility] Bilirubin [Mass/Vol] 0.40 mg/dL 0.20-1.00 [facility] Comment on above: For patients on eltr ombopag therapy, use of Dimension [place] TBIL is not recommended. Chloride [Moles/Vol] 102 mmol/L 98-107 [facility] Cholesterol [Mass/Vol] 206 mg/dL <200 [facility] Comment on above: <200 mg/dL Desirable 200-240 mg/dL Borderline >240 mg/dL High Risk Eosinophils/100 WBC (Bld) 2.1 % 0-[address] [facility] Glucose [Mass/Vol] 82 mg/dL 74-106 [facility] Neutrophils (Bld) [#/Vol] 4.3 10*3/uL 2.0-7.[address] [facility] Neutrophils/100 WBC (Bld) 51.7 % 47-[address] [facility] Potassium [Moles/Vol] 4.0 mmol/L 3.5-5.1 [facility] Protein [Mass/Vol] 7.4 g/dL 6.4-8.2 [facility] Sodium [Moles/Vol] 139 mmol/L 136-145 [facility] Triglyceride [Mass/Vol] 320 mg/dL <199 [facility] Comment on above: The drugs N-Acetylcy steine and Metamizole may falsely depress this assay.Serum Triglycerides Reference Interval Normal <150 mg/dL Borderline high 150 - 199 mg/dL High 200 - 499 mg/dL Very High > or = 500 mg/dL WBC (Bld) [#/Vol] 8.4 10*3/uL 4.4-11.0 [facility] Blood erythrocytes count (nu mber/volume)Ordered By: Rose Mary Campbell on 11-30-2023 RBC (Bld) [#/Vol] 4.55 10*6/uL 4.2-5.4 [facility] Blood hemoglobin measurement (mass/volume)Ordered By: Rose Mary Campbell on 11-30-2023 Hemoglobin (Bld) [Mass/Vol] 13.5 g/dL 12.0-15.[address] [facility] Blood lymphocytes/100 leukoc ytesOrdered By: Rose Mary Campbell on 11-30-2023 Lymphocytes/100 WBC (Bld) 33.9 % 19-[address] [facility] Blood monocytes/100 leukocyt esOrdered By: Rose Mary Campbell on 11-30-2023 Monocytes/100 WBC (Bld) 11.0 % 0-10 [facility] Blood platelet mean volumeOr dered By: Rose Mary Campbell on 11-30-2023 Platelet mean volume (Bld) [Entitic vol] 9.7 fL 6.2-12.[address] [facility] Determination of erythrocyte mean corpuscular volume (MCV)Ordered By: Rose Mary Campbell on 11-30-2023 MCV (RBC) [Entitic vol] 93.4 fL 81-99 [facility] Hematocrit Auto (Bld) [Volum e fraction]Ordered By: Rose Mary Campbell on 11-30-2023 Hematocrit (Bld) [Volume fraction] 42.5 % 37-[address] [facility] - Chemistry and C hemistry - challengeOrdered By: Rose Mary Campbell on 11-30-2023 ALP [Catalytic activity/Vol] 95 U/L 45-[address] [facility] ALT [Catalytic activity/Vol] 38 U/L 13-[address] [facility] CO2 [Moles/Vol] 32.0 mmol/L 21.0-32.[address] [facility] Globulin (S) [Mass/Vol] 3.6 g/dL 2.2-4.2 [facility] Urea nitrogen/Creatinine [Mass ratio] 18.7 mg/mg 10-[address] [facility] - Hematology and Cell countsOrdered By: Rose Mary Campbell on 11-30-2023 Erythrocyte distribution width (RBC) [Entitic vol] 50.5 fL 35.1-43.[address] [facility] Erythrocyte distribution width (RBC) [Ratio] 14.6 % 11.6-14.[address] [facility] Immature granulocytes/100 WBC (Bld) 0.200 % 0.0-0.[address] [facility] Comment on above: IG% - Immature Granu locytes (promyelocytes, myelocytes and metamyelocytes) > 1% indicates that a LEFT SHIFT is Present. MCH (RBC) [Entitic mass] 29.7 pg 27.0-32.[address] [facility] Nucleated RBC/100 WBC (Bld) [Ratio] 0 % 0-[address] [facility] MCHC Auto (RBC) [Mass/Vol]Or dered By: Rose Mary Campbell on 11-30-2023 MCHC (RBC) [Mass/Vol] 31.8 g/dL 32-36 [facility] No Panel InformationOrdered By: Rose Mary Campbell on 11-30-2023 Estimated GFR (MDRD) Amer 106 mL/min >[address] [facility] Comment on above: GFR Calc Estimated GFR (MDRD) Non-Af Amer 88 mL/min >[address] [facility] Comment on above: Non- GFR Calc Platelets bldOrdered By: Osbaldo Campbell on 11-30-2023 Platelets (Bld) [#/Vol] 294 10*3/uL 150-[address] [facility] Serum or plasma albumin godfrey urement (mass/volume)Ordered By: Rose Mary Campbell on 11-30-2023 Albumin [Mass/Vol] 3.8 g/dL 3.2-5.0 [facility] Serum or plasma albumin/glob ulin mass ratioOrdered By: Rose Mary Campbell on 11-30-2023 Albumin/Globulin [Mass ratio] 1.1 {ratio} 0.9-2.[address] [facility] Serum or plasma calcium godfrey urement (mass/volume)Ordered By: Rose Mary Campbell on 11-30-2023 Calcium [Mass/Vol] 9.5 mg/dL 8.5-10.1 [facility] Serum or plasma cholesterol in HDL measurement (mass/volume)Ordered By: Rose Mary Campbell on 11-30-2023 Cholesterol in HDL [Mass/Vol] 38 mg/dL >[address] [facility] Comment on above: The drugs N-Acetylcy steine and Metamizole may falsely depress this assay. Reference Range HDL <40 mg/dL Low HDL Cholesterol HDL >or= 60 mg/dL High HDL Cholesterol Serum or plasma cholesterol in VLDL measurement (mass/volume)Ordered By: Rose Mary Campbell on 11-30-2023 Cholesterol in VLDL [Mass/Vol] 64 mg/dL 5-[address] [facility] Serum or plasma creatinine m easurement (mass/volume)Ordered By: Rose Mary Campbell on 11-30-2023 Creatinine [Mass/Vol] 0.70 mg/dL 0.55-1.02 [facility] Comment on above: The validity of the calculated GFR & GFRAA in patients over 70 years has not been determined. Clinical correlation is essential. Serum or plasma low density lipoprotein (LDL) cholesterol measurement (mass/volume)Ordered By: Rose Mary Campbell on 11-30-2023 Cholesterol in LDL [Mass/Vol] 104 mg/dL 0-[address] [facility] Serum or plasma urea nitroge n measurement (mass/volume)Ordered By: Rose Mary Campbell on 11-30-2023 Urea nitrogen [Mass/Vol] 13 mg/dL 7-[address] [facility] Thin prep Papanicolaou smear with manual screeningOrdered By: Rose Mary Campbell on 11-30-2023 Thin prep Papanicolaou smear with manual screening 20 U/L 15-[address] [facility] Thin prep Papanicolaou smear with manual screening 5 5-[address] [facility] Whole blood hemoglobin A1c/t otal hemoglobin ratio (mass fraction)Ordered By: Rose Mary Campbell on 11-30-2023 HbA1c (Bld) [Mass fraction] 5.6 % 3.8-5.[address] [facility] Comment on above: Normal < 5.7 % Predi abetic 5.7 - 6.4 % Diabetic >or= 6.5 % Please note range changes. Absolute lymphocyte countOrd ered By: Rose Mary Campbell on 05-17-2023 Lymphocytes Auto (Unsp spec) [#/Vol] 2.74 10*3/uL 0.83-4.[address] [facility] Basophil percentageOrdered B y: Rose Mary Campbell on 05-17-2023 Basophils/100 WBC (Bld) 0.8 % 0-1 [facility] Bilirubin [Mass/Vol] 0.50 mg/dL 0.20-1.00 [facility] Comment on above: For patients on eltr ombopag therapy, use of Dimension [place] TBIL is not recommended. Chloride [Moles/Vol] 101 mmol/L 98-107 [facility] Cholesterol [Mass/Vol] 208 mg/dL <200 [facility] Comment on above: <200 mg/dL Desirable 200-240 mg/dL Borderline >240 mg/dL High Risk Eosinophils/100 WBC (Bld) 1.3 % 0-[address] [facility] Glucose [Mass/Vol] 91 mg/dL 74-106 [facility] Neutrophils (Bld) [#/Vol] 4.5 10*3/uL 2.0-7.[address] [facility] Neutrophils/100 WBC (Bld) 54.9 % 47-[address] [facility] Potassium [Moles/Vol] 3.9 mmol/L 3.5-5.1 [facility] Protein [Mass/Vol] 7.6 g/dL 6.4-8.2 [facility] Sodium [Moles/Vol] 137 mmol/L 136-145 [facility] Triglyceride [Mass/Vol] 316 mg/dL <199 [facility] Comment on above: The drugs N-Acetylcy steine and Metamizole may falsely depress this assay.Serum Triglycerides Reference Interval Normal <150 mg/dL Borderline high 150 - 199 mg/dL High 200 - 499 mg/dL Very High > or = 500 mg/dL WBC (Bld) [#/Vol] 8.2 10*3/uL 4.4-11.0 [facility] Blood erythrocytes count (nu mber/volume)Ordered By: Rose Mary Campbell on 05-17-2023 RBC (Bld) [#/Vol] 4.53 10*6/uL 4.2-5.4 [facility] Blood hemoglobin measurement (mass/volume)Ordered By: Rose Mary Campbell on 05-17-2023 Hemoglobin (Bld) [Mass/Vol] 13.4 g/dL 12.0-15.[address] [facility] Blood lymphocytes/100 leukoc ytesOrdered By: Rose Mary Campbell on 05-17-2023 Lymphocytes/100 WBC (Bld) 33.3 % 19-[address] [facility] Blood monocytes/100 leukocyt esOrdered By: Rose Mary Campbell on 05-17-2023 Monocytes/100 WBC (Bld) 9.5 % 0-10 [facility] Blood platelet mean volumeOr dered By: Rose Mary Campbell on 05-17-2023 Platelet mean volume (Bld) [Entitic vol] 10.1 fL 6.2-12.[address] [facility] Determination of erythrocyte mean corpuscular volume (MCV)Ordered By: Rose Mary Campbell on 05-17-2023 MCV (RBC) [Entitic vol] 91.8 fL 81-99 [facility] Hematocrit Auto (Bld) [Volum e fraction]Ordered By: Rose Mary Campbell on 05-17-2023 Hematocrit (Bld) [Volume fraction] 41.6 % 37-[address] [facility] - Chemistry and C hemistry - challengeOrdered By: Rose Mary Campbell on 05-17-2023 ALP [Catalytic activity/Vol] 91 U/L 45-[address] [facility] ALT [Catalytic activity/Vol] 34 U/L 13-[address] [facility] CO2 [Moles/Vol] 30.0 mmol/L 21.0-32.[address] [facility] Globulin (S) [Mass/Vol] 3.7 g/dL 2.2-4.2 [facility] Urea nitrogen/Creatinine [Mass ratio] 23.1 mg/mg 10-[address] [facility] - Hematology and Cell countsOrdered By: Rose Mary Campbell on 05-17-2023 Erythrocyte distribution width (RBC) [Entitic vol] 49.6 fL 35.1-43.[address] [facility] Erythrocyte distribution width (RBC) [Ratio] 14.6 % 11.6-14.[address] [facility] Immature granulocytes/100 WBC (Bld) 0.200 % 0.0-0.[address] [facility] Comment on above: IG% - Immature Granu locytes (promyelocytes, myelocytes and metamyelocytes) > 1% indicates that a LEFT SHIFT is Present. MCH (RBC) [Entitic mass] 29.6 pg 27.0-32.[address] [facility] Nucleated RBC/100 WBC (Bld) [Ratio] 0 % 0-[address] [facility] MCHC Auto (RBC) [Mass/Vol]Or dered By: Rose Mary Campbell on 05-17-2023 MCHC (RBC) [Mass/Vol] 32.2 g/dL 32-36 [facility] No Panel InformationOrdered By: Rose Mary Campbell on 05-17-2023 Estimated GFR (MDRD) Amer 99 mL/min >[address] [facility] Comment on above: GFR Calc Estimated GFR (MDRD) Non-Af Amer 82 mL/min >[address] [facility] Comment on above: Non- GFR Calc Platelets bldOrdered By: Osbaldo Campbell on 05-17-2023 Platelets (Bld) [#/Vol] 277 10*3/uL 150-[address] [facility] Serum or plasma albumin godfrey urement (mass/volume)Ordered By: Rose Mary Campbell on 05-17-2023 Albumin [Mass/Vol] 3.9 g/dL 3.2-5.0 [facility] Serum or plasma albumin/glob ulin mass ratioOrdered By: Rose Mary Campbell on 05-17-2023 Albumin/Globulin [Mass ratio] 1.1 {ratio} 0.9-2.[address] [facility] Serum or plasma calcium godfrey urement (mass/volume)Ordered By: Rose Mary Campbell on 05-17-2023 Calcium [Mass/Vol] 9.7 mg/dL 8.5-10.1 [facility] Serum or plasma cholesterol in HDL measurement (mass/volume)Ordered By: Rose Mary Campbell on 05-17-2023 Cholesterol in HDL [Mass/Vol] 39 mg/dL >[address] [facility] Comment on above: The drugs N-Acetylcy steine and Metamizole may falsely depress this assay. Reference Range HDL <40 mg/dL Low HDL Cholesterol HDL >or= 60 mg/dL High HDL Cholesterol Serum or plasma cholesterol in VLDL measurement (mass/volume)Ordered By: Rose Mary Campbell on 05-17-2023 Cholesterol in VLDL [Mass/Vol] 63 mg/dL 5-[address] [facility] Serum or plasma creatinine m easurement (mass/volume)Ordered By: Rose Mary Campbell on 05-17-2023 Creatinine [Mass/Vol] 0.74 mg/dL 0.55-1.02 [facility] Comment on above: The validity of the calculated GFR & GFRAA in patients over 70 years has not been determined. Clinical correlation is essential. Serum or plasma low density lipoprotein (LDL) cholesterol measurement (mass/volume)Ordered By: Rose Mary Campbell on 05-17-2023 Cholesterol in LDL [Mass/Vol] 106 mg/dL 0-[address] [facility] Serum or plasma urea nitroge n measurement (mass/volume)Ordered By: Rose Mary Campbell on 05-17-2023 Urea nitrogen [Mass/Vol] 17 mg/dL 7-[address] [facility] Thin prep Papanicolaou smear with manual screeningOrdered By: Rose Mary Campbell on 05-17-2023 Thin prep Papanicolaou smear with manual screening 25 U/L 15-[address] [facility] Thin prep Papanicolaou smear with manual screening 6 5-[address] [facility] Whole blood hemoglobin A1c/t otal hemoglobin ratio (mass fraction)Ordered By: Rose Mary Campbell on 05-17-2023 HbA1c (Bld) [Mass fraction] 5.9 % 3.8-5.[address] [facility] Comment on above: Normal < 5.7 % Predi abetic 5.7 - 6.4 % Diabetic >or= 6.5 % Please note range changes. Absolute lymphocyte countOrd ered By: Rose Mary Campbell on 01-18-2023 Lymphocytes Auto (Unsp spec) [#/Vol] 2.64 10*3/uL 0.83-4.[address] [facility] Basophil percentageOrdered B y: Rose Mary Campbell on 01-18-2023 Basophils/100 WBC (Bld) 0.7 % 0-1 [facility] Bilirubin [Mass/Vol] 0.40 mg/dL 0.20-1.00 [facility] Comment on above: For patients on eltr ombopag therapy, use of Dimension [place] TBIL is not recommended. Chloride [Moles/Vol] 102 mmol/L 98-107 [facility] Cholesterol [Mass/Vol] 204 mg/dL <200 [facility] Comment on above: <200 mg/dL Desirable 200-240 mg/dL Borderline >240 mg/dL High Risk Eosinophils/100 WBC (Bld) 1.2 % 0-[address] [facility] Glucose [Mass/Vol] 123 mg/dL 74-106 [facility] Comment on above: Fasting Glucose resu lt from 100 to 125 mg/dL suggests IMPAIRED HOMEOSTASIS per A.D.A. criteria. Neutrophils (Bld) [#/Vol] 4.9 10*3/uL 2.0-7.[address] [facility] Neutrophils/100 WBC (Bld) 57.9 % 47-[address] [facility] Potassium [Moles/Vol] 4.1 mmol/L 3.5-5.1 [facility] Protein [Mass/Vol] 7.4 g/dL 6.4-8.2 [facility] Sodium [Moles/Vol] 140 mmol/L 136-145 [facility] Triglyceride [Mass/Vol] 465 mg/dL <199 [facility] Comment on above: The drugs N-Acetylcy steine and Metamizole may falsely depress this assay. TRIGLYCERIDE IS GREATER THAN 400 mg/dL. LDL RESULT IS INVALID AND WILL NOT BE REPORTED.Serum Triglycerides Reference Interval Normal <150 mg/dL Borderline high 150 - 199 mg/dL High 200 - 499 mg/dL Very High > or = 500 mg/dL WBC (Bld) [#/Vol] 8.4 10*3/uL 4.4-11.0 [facility] Blood erythrocytes count (nu mber/volume)Ordered By: Rose Mary Campbell on 01-18-2023 RBC (Bld) [#/Vol] 4.35 10*6/uL 4.2-5.4 [facility] Blood hemoglobin measurement (mass/volume)Ordered By: Rose Mary Campbell on 01-18-2023 Hemoglobin (Bld) [Mass/Vol] 13.2 g/dL 12.0-15.[address] [facility] Blood lymphocytes/100 leukoc ytesOrdered By: Rose Mary Campbell on 01-18-2023 Lymphocytes/100 WBC (Bld) 31.5 % 19-[address] [facility] Blood monocytes/100 leukocyt esOrdered By: Rose Mary Campbell on 01-18-2023 Monocytes/100 WBC (Bld) 8.2 % 0-10 [facility] Blood platelet mean volumeOr dered By: Rose Mary Campbell on 01-18-2023 Platelet mean volume (Bld) [Entitic vol] 9.9 fL 6.2-12.[address] [facility] Determination of erythrocyte mean corpuscular volume (MCV)Ordered By: Rose Mary Campbell on 01-18-2023 MCV (RBC) [Entitic vol] 90.8 fL 81-99 [facility] Hematocrit Auto (Bld) [Volum e fraction]Ordered By: Rose Mary Campbell on 01-18-2023 Hematocrit (Bld) [Volume fraction] 39.5 % 37-[address] [facility] Laboratory - Chemistry and C hemistry - challengeOrdered By: Rose Mary Campbell on 01-18-2023 ALP [Catalytic activity/Vol] 86 U/L 45-[address] [facility] ALT [Catalytic activity/Vol] 40 U/L 13-[address] [facility] CO2 [Moles/Vol] 31.0 mmol/L 21.0-32.[address] [facility] Globulin (S) [Mass/Vol] 3.6 g/dL 2.2-4.2 [facility] Urea nitrogen/Creatinine [Mass ratio] 18.3 mg/mg 10-[address] [facility] - Hematology and Cell countsOrdered By: Rose Mary Campbell on 01-18-2023 Erythrocyte distribution width (RBC) [Entitic vol] 47.4 fL 35.1-43.[address] [facility] Erythrocyte distribution width (RBC) [Ratio] 14.2 % 11.6-14.[address] [facility] Immature granulocytes/100 WBC (Bld) 0.500 % 0.0-0.[address] [facility] Comment on above: IG% - Immature Granu locytes (promyelocytes, myelocytes and metamyelocytes) > 1% indicates that a LEFT SHIFT is Present. MCH (RBC) [Entitic mass] 30.3 pg 27.0-32.[address] [facility] Nucleated RBC/100 WBC (Bld) [Ratio] 0 % 0-[address] [facility] MCHC Auto (RBC) [Mass/Vol]Or dered By: Rose Mary Campbell on 01-18-2023 MCHC (RBC) [Mass/Vol] 33.4 g/dL 32-36 [facility] No Panel InformationOrdered By: Rose Mary Campbell on 01-18-2023 Estimated GFR (MDRD) Amer 95 mL/min >[address] [facility] Comment on above: GFR Calc Estimated GFR (MDRD) Non-Af Amer 79 mL/min >[address] [facility] Comment on above: Non- GFR Calc Platelets bldOrdered By: Osbaldo Campbell on 01-18-2023 Platelets (Bld) [#/Vol] 309 10*3/uL 150-[address] [facility] Serum or plasma albumin godfrey urement (mass/volume)Ordered By: Rose Mary Campbell on 01-18-2023 Albumin [Mass/Vol] 3.8 g/dL 3.2-5.0 [facility] Serum or plasma albumin/glob ulin mass ratioOrdered By: Rose Mary Campbell on 01-18-2023 Albumin/Globulin [Mass ratio] 1.1 {ratio} 0.9-2.[address] [facility] Serum or plasma calcium godfrey urement (mass/volume)Ordered By: Rose Mary Campbell on 01-18-2023 Calcium [Mass/Vol] 9.5 mg/dL 8.5-10.1 [facility] Serum or plasma cholesterol in HDL measurement (mass/volume)Ordered By: Rose Mary Campbell on 01-18-2023 Cholesterol in HDL [Mass/Vol] 37 mg/dL >[address] [facility] Comment on above: The drugs N-Acetylcy steine and Metamizole may falsely depress this assay. Reference Range HDL <40 mg/dL Low HDL Cholesterol HDL >or= 60 mg/dL High HDL Cholesterol Serum or plasma cholesterol in VLDL measurement (mass/volume)Ordered By: Rose Mary Campbell on 01-18-2023 Cholesterol in VLDL [Mass/Vol] [facility] Comment on above: Test not performed Serum or plasma creatinine m easurement (mass/volume)Ordered By: Rose Mary Campbell on 01-18-2023 Creatinine [Mass/Vol] 0.76 mg/dL 0.55-1.02 [facility] Comment on above: The validity of the calculated GFR & GFRAA in patients over 70 years has not been determined. Clinical correlation is essential. Serum or plasma low density lipoprotein (LDL) cholesterol measurement (mass/volume)Ordered By: Rose Mary Campbell on 01-18-2023 Cholesterol in LDL [Mass/Vol] [facility] Comment on above: Test not performed Serum or plasma urea nitroge n measurement (mass/volume)Ordered By: Rose Mary Campbell on 01-18-2023 Urea nitrogen [Mass/Vol] 14 mg/dL 7-[address] [facility] Thin prep Papanicolaou smear with manual screeningOrdered By: Rose Mary Campbell on 01-18-2023 Thin prep Papanicolaou smear with manual screening 27 U/L 15-[address] [facility] Thin prep Papanicolaou smear with manual screening 7 5-[address] [facility] Whole blood hemoglobin A1c/t otal hemoglobin ratio (mass fraction)Ordered By: Rose Mary Campbell on 01-18-2023 HbA1c (Bld) [Mass fraction] 6.1 % 3.8-5.[address] [facility] Comment on above: Normal < 5.7 % Predi abetic 5.7 - 6.4 % Diabetic >or= 6.5 % Please note range changes. CBC W/DIFFon 12-06-2017 BASO ABS 0.10 K/CU MM Normal 0-0.2 [facility] Comment on above: Performed By: #### L 200.12270 ####[facility] YDWZKXMHGZ8995 [place], [place] [address]Zd# [phone] Basophils/100 WBC Auto (Bld) 1.2 % Normal 0-2 [facility] Comment on above: Performed By: #### L 200.89580 ####[facility] [id number] [place], [place] [address]Un# [phone] EOS ABS 0.10 K/CU MM Normal 0-0.5 [facility] Comment on above: Performed By: #### L 200.60334 ####[facility] [id number] [place], [place] [address]Of# [phone] Eosinophils/100 leukocytes 1.8 % Normal 0-5 [facility] [place] Comment on above: Performed By: #### L 200.03506 ####[facility] [id number] [place], [place] [address]Th# [phone] Erythrocyte distribution width Auto Ratio (RBC) 15.0 % High 11-14.5 [facility] Comment on above: Performed By: #### L 200.45807 ####[facility] [id number] [place] [address]Ra# [phone] Erythrocytes (RBC) 4.51 M/CU MM Normal 3.90-5.30 [facility] Comment on above: Performed By: #### L 200.29278 ####[place] [address] [place], [place] [address]Cb# [phone] Erythrocytes (RBC) 0.0 % Normal Less than 1 [facility] Comment on above: Performed By: #### L 200.69761 ####[facility] [id number] [place] [address]Xr# [phone] Hematocrit (HCT) 40.7 % Normal 35.0-47.0 [facility] [place] Comment on above: Performed By: #### L 200.65252 ####[facility] LHESZMKJNA5278 [place], [place] [address]Hs# [phone] Hemoglobin mass conc (Bld) 13.0 g/dL Normal 11.5-15.5 [facility] Comment on above: Performed By: #### L 200.11417 ####[facility] [id number] [place], [place] [address]Dp# [phone] IMMATR GRAN ABS 0.00 K/CU MM Normal Less than 2 [facility] Comment on above: Performed By: #### L 200.82564 ####[facility] [id number] [place], [place] [address]Ik# [phone] IMMATURE GRAN % 0.3 % Normal Less than 2 [facility] [place] Comment on above: Performed By: #### L 200.23559 ####[facility] VEJVFXUGYL9937 [place], [place] [address]Iz# [phone] Lymphocytes 3.00 K/CU MM Normal 0.9-4.4 [facility] Comment on above: Performed By: #### L 200.50317 ####[facility] [id number] [place] [address]St# [phone] Lymphocytes/100 leukocytes 38.6 % Normal 20-40 [facility] Comment on above: Performed By: #### L 200.65252 ####[facility] [id number] [place] [address]Tc# [phone] MCHC mass conc (RBC) 31.9 g/dL Low 32.0-36.0 [facility] Comment on above: Performed By: #### L 200.15830 ####[facility] [id number] [place] [address]Ne# [phone] MCV 90.2 fL Normal 80.0-99.0 [facility] Comment on above: Performed By: #### L 200.31319 ####[facility] CBMYFQYNNU4825 [place], [place] [address]Yx# [phone] MONO ABS 0.50 K/CU MM Normal 0.1-1.1 [facility] Comment on above: Performed By: #### L 200.09939 ####[facility] [id number] [place] [address]Mg# [phone] Monocytes/100 leukocytes 6.7 % Normal 2-10 [facility] Comment on above: Performed By: #### L 200.66615 ####[facility] [id number] [place], [place] [address]Ck# [phone] Neutrophils 4.00 K/CU MM Normal 2.0-8.3 [facility] Comment on above: Performed By: #### L 200.61482 ####[facility] CPCNIBQUJM9437 [place], [place] [address]My# [phone] Neutrophils/100 WBC Auto (Bld) 51.4 % Normal 45-75 [facility] Comment on above: Performed By: #### L 200.73564 ####[facility] XTIKTYJMJK2305 [place], [place] [address]Yn# [phone] Platelet mean volume (PMV) 9.9 fL Normal 9.4-12.4 [facility] Comment on above: Performed By: #### L 200.08124 ####[facility] LWESSXEBKJ2742 [place], [place] [address]Eg# [phone] Platelets 271 K/CU MM Normal 150-450 [facility] Comment on above: Performed By: #### L 200.10063 ####[facility] XXMORQEONC6602 [place], [place] [address]Ry# [phone] WBC (Leukocytes) 7.8 K/CU MM Normal 4.5-11.0 [facility] Comment on above: Performed By: #### L 200.09984 ####[facility] EWSMKDXXKB8764 [place], [place] [address]Ai# [phone] CMPon 12-06-2017 Alanine aminotransferase (ALT) 33 U/L Normal 13-61 [facility] Comment on above: Result Comment: RESU LTS MAY BE FALSELY DEPRESSED AFTER THE ADMINISTRATION OFSULFASALAZINE AND/OR SULFAPYRIDINE. Performed By: #### L 500.88787, L500.33063, L500.61780 ####[facility] QMHYAMWPSN7410 [place], [place] [address]Pv# [phone] Albumin 4.2 g/dL Normal 3.2-5.0 [facility] Comment on above: Performed By: #### L 500.74470, L500.45497, L500.33157 ####[facility] YHIROKXXUM0782 [place], [place] [address]Rc# [phone] Albumin/Globulin Ratio 1.2 {ratio} Normal 0.8-2.0 [facility] Comment on above: Performed By: #### L 500.50590, L500.81470, L500.42497 ####[facility] RTAJKHHZDZ5530 [place], [place] [address]Mr# [phone] ALK PHOS 117 U/L Normal 45-117 [facility] Comment on above: Performed By: #### L 500.76391, L500.61661, L500.40613 ####[facility] ISNFCZRRDZ[address] [place], [place] [address]Ph# [phone] Anion gap 6 mmol/L Normal 5-16 [facility] Comment on above: Performed By: #### L 500.49962, L500.06926, L500.98159 ####[facility] OQZQLFVDNH8275 [place], [place] [address]Mo# [phone] BILI TOTAL 0.5 MG/DL Normal 0.2-1.0 [facility] Comment on above: Performed By: #### L 500.85794, L500.87179, L500.91864 ####[facility] ITVECJOIJZ5156 [place], [place] [address]Iz# [phone] BUN/Creatinine Ratio 18 mg/mg Normal 15-24 [facility] Comment on above: Performed By: #### L 500.34594, L500.62207, L500.82606 ####[facility] XWSDPLPMRN3899 [place], [place] [address]Fb# [phone] Calcium 9.8 mg/dL Normal 8.5-10.1 [facility] Comment on above: Performed By: #### L 500.51612, L500.08811, L500.18438 ####[facility] DVXSQAWUGB4802 [place], [place] [address]Xd# [phone] Chloride 101 mmol/L Normal 98-107 [facility] Comment on above: Performed By: #### L 500.42187, L500.30230, L500.88217 ####[facility] CKKUCLJVPH7061 [place], [place] [address]Ko# [phone] CO2 31 mmol/L Normal 21-32 [facility] Comment on above: Performed By: #### L 500.25680, L500.78517, L500.35634 ####[facility] UPTFDFKUDS0525 [place], [place] [address]Ga# [phone] Creatinine 0.620 mg/dL Normal 0.510-0.950 [facility] Comment on above: Result Comment: Marcela ents receiving either N-Acetylcysteine (NAC) orMetamizole prior to venipuncture, may have falsely depressedresults. Performed By: #### L 500.09068, L500.03558, L500.82725 ####[facility] MJILMGFJLQ9999 [place], [place] [address]Pd# [phone] Globulin 3.4 g/dL Normal 2.2-4.2 [facility] Comment on above: Performed By: #### L 500.45655, L500.60192, L500.72389 ####[facility] TRYJVAWTQW5348 [place], [place] [address]Jh# [phone] Glucose mass conc 81 mg/dL Normal 70-100 [facility] Comment on above: Result Comment: 70-1 00- Normal Fasting; 100-125 Impaired Fasting; greaterthan 126 on more than one result- Diabetes. ADA guidelines.Results may be falsely elevated after the administration ofSulfapyridine.Results may be falsely depressed after the administration ofSulfasalazine. Performed By: #### L 500.41042, L500.71000, L500.22022 ####[facility] UGCHEFUKMC0493 [place], [place] [address]Fs# [phone] Potassium molar conc 4.3 mmol/L Normal 3.5-5.1 [facility] Comment on above: Performed By: #### L 500.57132, L500.15881, L500.38887 ####[facility] EQKGALAWTH7760 [place], [place] [address]Ev# [phone] Protein 7.6 g/dL Normal 6.0-8.5 [facility] [place] Comment on above: Performed By: #### L 500.40568, L500.58724, L500.54107 ####[facility] OAGPWETIVH3121 [place], [place] [address]Hp# [phone] SGOT (AST) 20 U/L Normal 8-34 [facility] Comment on above: Result Comment: RESU LTS MAY BE FALSELY DEPRESSED AFTER THE ADMINISTRATION OFSULFASALAZINE AND/OR SULFAPYRIDINE. Performed By: #### L 500.73612, L500.71325, L500.71119 ####[facility] AHATETODOK2871 [place], [place] [address]Us# [phone] Sodium 138 mmol/L Normal 136-145 [facility] Comment on above: Performed By: #### L 500.66972, L500.39988, L500.37254 ####[facility] DPCQNKZHCX1125 [place], [place] [address]Kg# [phone] Urea nitrogen 11 mg/dL Normal 7-26 [facility] [place] Comment on above: Performed By: #### L 500.16901, L500.67010, L500.88750 ####[facility] SOPQIHXPYL5741 [place], [place] [address]Qp# [phone] GFR ESTon 12-06-2017 IF AMER Greater than 60 Normal [facility] Comment on above: Performed By: #### L 500.22308, L500.08872, L500.60340 ####[facility] WFCVXXBVBH7148 [place], [place] [address]Wv# [phone] IF non-AFR AMER Greater than 60 Normal [facility] Comment on above: Performed By: #### L 500.81461, L500.52906, L500.84376 ####[facility] FSVRIMTDQC1523 [place], [place] [address]Yi# [phone] LIPIDon 12-06-2017 Cholesterol 174 mg/dL Normal 0-199 [facility] Comment on above: Performed By: #### L 500.69061, L500.28172, L500.07534 ####[facility] DYVKBJOVBJ4262 [place], [place] [address]Tw# [phone] HDL Cholesterol 54 mg/dL Normal [place] 40 [facility] Comment on above: Result Comment: Marcela ents receiving Metamizole prior to venipuncture, mayhave falsely depressed results. Performed By: #### L 500.27225, L500.10375, L500.13367 ####[facility] [id number] [place], [place] [address]Ls# [phone] LDL Cholesterol 88 MG/DL Normal 0-129 [facility] Comment on above: Result Comment: ___C HOLESTEROL/HDL RATIO RISK___ CHD RISK = Total CHOL LDL HDL (CHOL/HDL) --------Recommended <200 <130 >35 <3.4 --Borderline 200-239 130-159 3.4-4.99 ------High >240 >160 >5.0 -- Performed By: #### L 500.58264, L500.30607, L500.85503 ####[facility] RPJTQMXCDH4708 [place], [place] [address]Qg# [phone] Triglyceride 159 mg/dL High 30-149 [facility] Comment on above: Result Comment: Marcela ents receiving either N-Acetylcysteine (NAC) orMetamizole prior to venipuncture, may have falsely depressedresults. Performed By: #### L 500.79211, L500.64345, L500.00015 ####[facility] CSVNXMHIDR1769 [place], [place] [address]Fv# [phone] UA COMPLETEon 12-06-2017 UA APPEARANCE CLOUDY Normal CLEAR [facility] [place] Comment on above: Performed By: #### L 600.56721, L600.29719 ####[facility] DIJLKMSVYT2474 [place], [place] [address]Hf# [phone] UA BILIRUBIN Negative Normal NEGATIVE [facility] Comment on above: Performed By: #### L 600.99646, L600.77880 ####[facility] NPOUCSAGZC5432 [place], [place] [address]Vy# [phone] UA BLOOD Negative Normal NEGATIVE [facility] Comment on above: Performed By: #### L 600.07217, L600.21888 ####[facility] BRZUMCNTWQ6132 [place], [place] [address]Ee# [phone] UA COMMENT UA MICROSCOPIC Normal N [facility] [place] Comment on above: Performed By: #### L 600.40651, L600.93304 ####[facility] STNVVSDWBJ0785 [place], [place] [address]Ps# [phone] UA KETONE Negative Normal NEGATIVE [facility] [place] Comment on above: Performed By: #### L 600.48219, L600.36472 ####[facility] AHVDVBWMAS3747 [place], [place] [address]Uz# [phone] UA LK ESTERASE TRACE Normal NEGATIVE [facility] [place] Comment on above: Performed By: #### L 600.43142, L6.15042 ####[facility] [id number] [place] [address]Us# [phone] UA NITRITE Negative Normal NEGATIVE [facility] [place] Comment on above: Performed By: #### L 600.79093, L6.36002 ####[facility] [id number] [place] [address]Nw# [phone] UA PH 7.0 Normal 5-6 [facility] Comment on above: Performed By: #### L 600.89074, L6.09812 ####[facility] [id number] [place] [address]Ku# [phone] UA PROTEIN Negative Normal NEGATIVE [facility] Comment on above: Performed By: #### L 600.01352, L6.84856 ####[facility] EAXUKGTCUF9288 [place], [place] [address]Jl# [phone] UA SPEC GRAV 1.009 Normal 1.005-1.030 [facility] [place] Comment on above: Performed By: #### L 600.69467, L6.23856 ####[facility] [id number] [place] [address]Zm# [phone] UA UROBILINOGEN NORMAL Normal NORMAL [facility] [place] Comment on above: Performed By: #### L 600.92920, L600.92545 ####[facility] TDNKPNAYQE6377 [place], [place] [address]Mu# [phone] Urine, color YELLOW Normal [facility] Comment on above: Performed By: #### L 600.19544, L600.90033 ####[facility] PTYWQEUNNC1717 [place], [place] [address]Ui# [phone] Urine, glucose Negative Normal NORMAL [facility] Comment on above: Performed By: #### L 600.97949, L600.06127 ####[facility] QKOAGDSSVY9127 [place], [place] [address]Jk# [phone] UA MICROSCOPICon 12-06-2017 HYALINE CAST 2 /LPF High 0-1 [facility] Comment on above: Performed By: #### L 600.32100, L600.02391 ####[facility] [id number] [place] [address]Sm# [phone] UA BACTERIA TRACE Normal NONE [facility] Comment on above: Performed By: #### L 600.21091, L600.18626 ####[facility] [id number] [place] [address]Mw# [phone] UA EPITH CELLS 12 EPI/HPF High 0-5 [facility] [place] Comment on above: Performed By: #### L 600.06384, L600.25668 ####[facility] PQQAUPHKCU[address] [place] [address]Mo# [phone] UA WBC 3 WBC/HPF Normal 0-5 [facility] Comment on above: Performed By: #### L 600.34196, L600.72905 ####[facility] [id number] [place] [address]Ak# [phone] Urine, erythrocytes 2 RBC/HPF Normal 0-3 [facility] Comment on above: Performed By: #### L 600.75741, L600.73790 ####[facility] ALSOXRRQHB[address] [place] [address]Ty# [phone] LIPIDon 06-07-2017 Cholesterol 122 mg/dL Normal 0-199 [facility] Comment on above: Performed By: #### L 500.59230, L500.40504 ####[facility] [id number] [place] [address] [place] [address]Wc# [phone] HDL Cholesterol 31 mg/dL Low [place] 40 [facility] Comment on above: Result Comment: Marcela ents receiving Metamizole prior to venipuncture, mayhave falsely depressed results. Performed By: #### L 500.91794, L500.07110 ####[facility] XUTZGHAAAP1269 [place], [place] [address]Wb# [phone] LDL Cholesterol 72 MG/DL Normal 0-129 [facility] Comment on above: Result Comment: ___C HOLESTEROL/HDL RATIO RISK___ CHD RISK = Total CHOL LDL HDL (CHOL/HDL) --------Recommended <200 <130 >35 <3.4 --Borderline 200-239 130-159 3.4-4.99 ------High >240 >160 >5.0 -- Performed By: #### L 500.13510, L500.77948 ####[facility] ISSUESSYED7494 [place], [place] [address]Nw# [phone] Triglyceride 96 mg/dL Normal 30-149 [facility] Comment on above: Result Comment: Marcela ents receiving either N-Acetylcysteine (NAC) orMetamizole prior to venipuncture, may have falsely depressedresults. Performed By: #### L 500.51946, L500.98936 ####[facility] AOZLDWYCDF6030 [place], [place] [address]Jw# [phone] LIVERon 06-07-2017 Alanine aminotransferase (ALT) 34 U/L Normal 13-61 [facility] [place] Comment on above: Performed By: #### L 500.32943, L500.76329 ####[facility] IJQJUJICZX6071 [place], [place] [address]Wz# [phone] Albumin 3.9 g/dL Normal 3.2-5.0 [facility] Comment on above: Performed By: #### L 500.91421, L500.29844 ####[facility] [id number] [place] [address]Qw# [phone] Albumin/Globulin Ratio 1.2 {ratio} Normal 0.8-2.0 [facility] Comment on above: Performed By: #### L 500.82575, L500.64871 ####[facility] ELUMILYHJV9971 [place], [place] [address]Pj# [phone] ALK PHOS 104 U/L Normal 45-117 [facility] Comment on above: Performed By: #### L 500.41934, L500.53893 ####[facility] [address]ZQWZKHA[address] [place] [address]Ri# [phone] BILI DIRECT 0.14 MG/DL Normal 0.00-0.20 [facility] Comment on above: Performed By: #### L 500.25620, L500.69468 ####[facility] [id number] [place] [address]Mz# [phone] BILI TOTAL 0.5 MG/DL Normal 0.2-1.0 [facility] Comment on above: Performed By: #### L 500.24007, L500.05574 ####[facility] LGOYNRXYYQ0144 [place], [place] [address]Pj# [phone] Globulin 3.3 g/dL Normal 2.2-4.2 [facility] Comment on above: Performed By: #### L 500.79535, L500.39238 ####[facility] QVTULMNAWA5738 [place], [place] [address]Mb# [phone] Protein 7.2 g/dL Normal 6.0-8.5 [facility] Comment on above: Performed By: #### L 500.84357, L500.12489 ####[facility] HMBCEGGTID3234 [place], [place] [address]Sr# [phone] SGOT (AST) 25 U/L Normal 8-34 [facility] Comment on above: Performed By: #### L 500.67440, L500.30258 ####[facility] DNJWWVLXCQ8231 [place], [place] [address]Jh# [phone] Vital Signs Date Time Vital Sign Value Performing Clinician Faci ericy 11-30-2023 16:01-0500 Body height 149.86 cm [facility] 11-30-2023 16:01-0500 Body mass index (BMI) [Ratio] 43.4 kg/m2 [facility] 11-30-2023 16:01-0500 Body temperature 97.5 [degF] [facility] 11-30-2023 16:01-0500 Body weight 97.52 kg [facility] 11-30-2023 16:01-0500 Diastolic blood pressure 60 mm[Hg] [facility] 11-30-2023 16:01-0500 Heart rate 76 /min [facility] 11-30-2023 16:01-0500 Respiratory rate 18 /min [facility] 11-30-2023 16:01-0500 SaO2% (BldA) [Mass fraction] 95 % [facility] 11-30-2023 16:01-0500 Systolic blood pressure 130 mm[Hg] [facility] 08-25-2023 14:58-0400 Body mass index (BMI) [Ratio] 43.4 kg/m2 [facility] 08-25-2023 14:58-0400 Body temperature 97.7 [degF] [facility] 08-25-2023 14:58-0400 Body weight 97.52 kg [facility] 08-25-2023 14:58-0400 Diastolic blood pressure 80 mm[Hg] [facility] 08-25-2023 14:58-0400 Heart rate 83 /min [facility] 08-25-2023 14:58-0400 Respiratory rate 18 /min [facility] 08-25-2023 14:58-0400 SaO2% (BldA) [Mass fraction] 97 % [facility] 08-25-2023 14:58-0400 Systolic blood pressure 118 mm[Hg] [facility] 05-17-2023 15:22-0400 Body height 149.86 cm [facility] 05-17-2023 15:22-0400 Body mass index (BMI) [Ratio] 43.8 kg/m2 [facility] 05-17-2023 15:22-0400 Body temperature 98.1 [degF] [facility] 05-17-2023 15:22-0400 Body weight 98.42 kg [facility] 05-17-2023 15:22-0400 Diastolic blood pressure 70 mm[Hg] [facility] 05-17-2023 15:22-0400 Heart rate 102 /min [facility] 05-17-2023 15:22-0400 Respiratory rate 18 /min [facility] 05-17-2023 15:22-0400 SaO2% (BldA) [Mass fraction] 98 % [facility] 05-17-2023 15:22-0400 Systolic blood pressure 115 mm[Hg] [facility] 01-18-2023 14:59-0500 Body height 149.86 cm [facility] 01-18-2023 14:59-0500 Body mass index (BMI) [Ratio] 45.6 kg/m2 [facility] 01-18-2023 14:59-0500 Body temperature 98.1 [degF] [facility] 01-18-2023 14:59-0500 Body weight 102.51 kg [facility] 01-18-2023 14:59-0500 Diastolic blood pressure 60 mm[Hg] [facility] 01-18-2023 14:59-0500 Heart rate 80 /min [facility] 01-18-2023 14:59-0500 Respiratory rate 18 /min [facility] 01-18-2023 14:59-0500 SaO2% (BldA) [Mass fraction] 96 % [facility] 01-18-2023 14:59-0500 Systolic blood pressure 130 mm[Hg] [facility] 01-11-2023 18:26-0500 Body mass index (BMI) [Ratio] 44.4 kg/m2 [facility] 01-11-2023 18:26-0500 Body temperature 97.2 [degF] [facility] 01-11-2023 18:26-0500 Body weight 99.79 kg [facility] 01-11-2023 18:26-0500 Diastolic blood pressure 80 mm[Hg] [facility] 01-11-2023 18:26-0500 Heart rate 80 /min [facility] 01-11-2023 18:26-0500 Respiratory rate 18 /min [facility] 01-11-2023 18:26-0500 SaO2% (BldA) [Mass fraction] 95 % [facility] 01-11-2023 18:26-0500 Systolic blood pressure 130 mm[Hg] [facility] Encounters Encounter Date Encounter Type Care Provider Facility Start: 08-15-2025 ambulatory Rose Mary Campbell [employer]I [employer]ER Faci lity:[facility] Start: 07-29-2025 End: 07-29-2025 ambulatory Rose Mary Campbell [employer] Facility:[facility] Start: 11-26-2024 End: 11-26-2024 ambulatory Rose Mary Campbell [employer] Facility:[facility] Start: 11-30-2023 End: 11-30-[address] [facility] Work Phone: Start: 11-30-2023 End: 11-30-2023 Patient encounter procedure [facility]Laboratory, Specimen Work Phone: Start: 05-17-2023 End: 05-17-[address] [facility] Work Phone: Start: 05-17-2023 End: 05-17-2023 Patient encounter procedure [facility] Specimen Work Phone: Start: 02-17-2023 End: 02-17-2023 Patient encounter procedure [facility]Out[facility] Work Phone: Start: 01-18-2023 End: 01-18-[address] [facility] Work Phone: Start: 01-18-2023 End: 01-18-2023 Patient encounter procedure [facility], Specimen Start: 01-06-2021 Patient encounter status [facility] Start: 12-06-2017 Ambulatory Javed Barlow y:[facility] Start: 06-07-2017 Ambulatory Javed Barlow y:[facility] Procedures Date Procedure Procedure Detail Performing Clinician Start: 02-17-2023 Screening mammography H/O: surgery H/O hemorrhoidectomy H/O: tubal ligation S/P tubal ligation History of cholecystectomy History of cholecystectomy Plan of Treatment Date Care Activity Detail Author MG Breast - left Screening W [facility] Immunizations Immunization Date Immunization Notes Care Provider Teresa galvan 12-24-2020 tetanus toxoid, redu chuyita diphtheria toxoid, and acellular pertussis vaccine, adsorbed [facility] Payers Date Payer Category Payer Private Health Insurance [id number] 2024 Medicare [id number] 2024 Self-pay [id number] 2015 Private Health Insurance [id number] 2014 Medicare [id number] Unknown [id number] Unknown [id number] Unknown [id number] Social History Date Type Detail Facility Start: 03-10-2021 End: 03-10-2021 Tobacco smoking status NHIS Unknown if ever smoked [facility] Start: 03-10-2021 Non-smoker [facility] Start: 1950 Sex Assigned At Female W [facility] Medical Equipment Procedure Code Equipment Code Equipment Origin al Text Equipment Identifier Dates Syringe With Nee dle, Safety (Monoject Safety Syringes) 3 mL 23 gauge x 1 syringe Start: 04-26-2021 Syringe With Nee dle, Safety (Monoject Safety Syringes) 3 mL 23 gauge x 1 syringe Start: 04-26-2021 Syringe With Nee dle, Safety (Monoject Safety Syringes) 3 mL 23 gauge x 1 syringe Start: 04-26-2021 Evaluation note Note Date & Type Note Facility Evaluation note Diagnosis Onset Date Bilateral acute otitis media acute Diabetes type 2, uncontrolled acute Maxillary sinusitis acute Wellness examination acute [facility] Work Phone: Evaluation note Note Date & Type Note Facility Evaluation note Diagnosis Onset Date Diabetes type 2, uncontrolled acute Hyperlipemia chronic Hypertension chronic [facility] Work Phone: Evaluation note Note Date & Type Note Facility Evaluation note Diagnosis Onset Date Acne rosacea acute Perioral dermatitis acute Diabetes type 2, uncontrolled acute Gastroesophageal reflux disease acute Depression chronic Hyperlipemia chronic Hypertension [facility] Work Phone: Summary Purpose Family History No Family History Records Found Relationship Condition Age at Onset Recorded Date/T vinnie father Cardiac disease Unknown brother Cardiac disease Unknown aunt Disorder of thyroid Unknown mother Alzheimer's disease Unknown Advance Directives No Advanced Directives Records Found Advance Directive Response Recorded Date/ Time Living Will No March 10, 2021 11:33am Power of Drugless Doctor No March 10 11:33am Advance Directive Response Recorded Date/ Time Living Will No March 10, 2021 12:33pm Power of Drugless Doctor No March 10 12:33pm Chief Complaint and Reason for Visit Chief Complaint Sinus infection Annual wellness exam PE Reason for Visit Bilateral acute otit is media Diabetes type 2, uncontrolled Maxillary sinusitis Wellness examination Chief Complaint SCREENING Diabetes Mellitus Type 2 A1c Reason for Visit Diabetes type 2, unc ontrolled Hyperlipemia Hypertension Chief Complaint Rash on her face medication refills Reason for Visit Acne rosacea Perioral dermatitis Diabetes type 2, uncontrolled Gastroesophageal reflux disease Depression Hyperlipemia Hypertension Additional Source Comments INFORMATION SOURCE (unrecogn ized section and content) DATE CREATED AUTHOR 05/14/2018 [facility] Blank nter [place] DATE CREATED AUTHOR AUTHOR'S ORGANIZ ATION 08/13/2025 [facility] Care Teams (unrecognized sec tion and content) Team Status: Active Member Role Status Dates Rose Mary Campbell [employer]I [employer]ICER, [employer]ER-C Primary Care Provider Active Team Status: Inactive Member Role Status Dates Rose Mary Campbell [employer]ER, [employer]ER-C Primary Care Pr ovider, Attending Provider, Referring Provider Active Team Status: Inactive Member Role Status Dates Rose Mary Campbell [employer]ER, [employer]ER-C Primary Care Provider, Attend ing Provider Active Goals (unrecognized section and content) Goals may be documented in a n alternate sectionGoals may be documented in an alternate sectionGoals may be documented in an alternate section FOR RECORDS PERTAINING TO PATIENTS WHO ARE [...] BE BASED ON THE PRIMARY CLINICAL RECORDS. [employer] provides no warranty or guarantee of the accuracy or completeness of information in this document.
--- OUTSIDE RECORDS SUMMARY | 2025-08-15 12:17 | XMS RPT_ITS | CCD ---
Author Organization [facility]ini[facility] Care Team Providers Care Hob Machine Operator Name Role Phone Javed Pelletier Unavailable Unavailable Javed Pelletier Unavailable Unavailable Adrian COMMUNITY RELATIONS POLICE LIEUTENANT, Rose Mary Attending Unavailable Adrian COMMUNITY [employer]ATIONS POLICE LIEUTENANT, Rose Mary Referring Unavailable Adrian COMMUNITY RELATIONS POLICE LIEUTENANT, Rose Mary Primary Care Unavailable Adrian COMMUNITY RELATIONS POLICE LIEUTENANT, Rose Mary Primary Care Unavailable Adrian COMMUNITY RELATIONS POLICE LIEUTENANT, Rose Mary Attending Unavailable Adrian COMMUNITY RELATIONS POLICE LIEUTENANT, Rose Mary Primary Care Unavailable Adrian COMMUNITY RELATIONS POLICE LIEUTENANT, Rose Mary Attending Unavailable Adrian COMMUNITY RELATIONS POLICE LIEUTENANT, Rose Mary Referring Unavailable Allergies Allergy Classification Reported Allergen(s) Allergy Type Date of Onset Reaction(s) Facility (1 source) atorvastatin Drug Allergy 07-31-2025 [facility] Repository Medications Current Medications Medication Drug Class(es) [...] Start: 12-04-2019 take 1 capsule by mo [facility] twice daily Fish,Flaxseed Oil-E.Prim-Bcurr (Fish, Flax Andborage [...] Facility Lipid Profileon 07-29-2025 CHOL:HDL 8.26 Normal [facility] Comment on above: Performed By: #### L 500.4100, L503.0106 #### [facility] Laboratory [address] [place], [place], [address] (105) Cholesterol [Mass/Vol] 327 mg/dL High <=200 [facility] Comment on above: Result Comment: Chol esterol level, Desirable <200 mg/dL Borderline high cholesterol 200-239 mg/dL High cholesterol >=240 mg/dL Recommendations of the NCEP Adult Treatment Panel for the following risk-cutoff thresholds for the [place] population. Performed By: #### L 500.4100, L503.0106 #### [facility] Laboratory [address] [place], [address] Cholesterol in HDL [Mass/Vol] 40 mg/dL Normal [facility] Comment on above: Result Comment: Marizol onal Cholesterol Education Program (NCEP) guidelines: <40 mg/dL: Low HDL-cholesterol (major risk factor for CHD) >= 60 mg/dL: High HDL-cholesterol (negative risk factor for CHD) HDL-cholesterol is affected by a number of factors, e.g. smoking, exercise, hormones, sex and age. Performed By: #### L 500.4100, L503.0106 #### [facility] Laboratory [address] [place], [address] Cholesterol in LDL [Mass/Vol] 184 mg/dL Normal [facility] Comment on above: Result Comment: Bord reyayk=305-527 mg/dL Higher Cqul=007 mg/dL or greater Friedwald Equation for LDL-C Performed By: #### L 500.4100, L503.0106 #### [facility] Laboratory [address] [place], [address] Cholesterol in VLDL [Mass/Vol] 103 mg/dL High 5-40 [facility] Comment on above: Performed By: #### L 500.4100, L503.0106 #### [facility] Laboratory [address] [place], [address] Triglyceride [Mass/Vol] 517 mg/dL High [facility] Comment on above: Result Comment: The drugs N-Acetylcysteine and Metamizole may falsely depress this assay. Normal range: <150 mg/dL Borderline High: 150-199 mg/dL High: 200-499 mg/dL Very High: >500 mg/dL Performed By: #### L 500.4100, L503.0106 #### [facility] Laboratory [address] [place], [address] Vitamin B12on 07-29-2025 Cobalamin (Vitamin B12) [Mass/Vol] 645 pg/mL Normal 180-914 [facility] Comment on above: Performed By: #### L 500.4100, L503.0106 #### [facility] Laboratory [address] [place], [address] CBC W/Diff, Automatedon 01-0 Absolute Lymph 3.06 X10 3/uL Normal 0.83-4.51 [facility] Comment on above: Performed By: #### L 500.4100, L500.4050, L501.9985, L100.0100 #### [facility] Laboratory [address] [place], [address] Absolute Neut 4.3 X10 3/uL Normal 2.0-7.7 [facility] Comment on above: Performed By: #### L 500.4100, L500.4050, L501.9985, L100.0100 #### [facility] Laboratory [address] [place], [address] Basophils/100 WBC (Bld) 0.8 % Normal 0-1 [facility] Comment on above: Performed By: #### L 500.4100, L500.4050, L501.9985, L100.0100 #### [facility] Laboratory [address] [place], [address] Eosinophils/100 WBC (Bld) 1.5 % Normal 0-5 [facility] Comment on above: Performed By: #### L 500.4100, L500.4050, L501.9985, L100.0100 #### [facility] Laboratory [address] [place], [address] Erythrocyte distribution width (RBC) [Ratio] 14.5 % Normal 11.6-14.6 [facility] Comment on above: Performed By: #### L 500.4100, L500.4050, L501.9985, L100.0100 #### [facility] Laboratory [address] [place], [address] Hematocrit (Bld) [Volume fraction] 41.4 % Normal 37-47 [facility] Comment on above: Performed By: #### L 500.4100, L500.4050, L501.9985, L100.0100 #### [facility] Laboratory [address] [place], [address] Hemoglobin (Bld) [Mass/Vol] 13.3 g/dL Normal 12.0-15.0 [facility] Comment on above: Performed By: #### L 500.4100, L500.4050, L501.9985, L100.0100 #### [facility] Laboratory [address] [place], [address] IG% 0.400 Normal 0.0-0.9 [facility] Comment on above: Result Comment: IG% - Immature Granulocytes (promyelocytes, myelocytes and metamyelocytes) > 1% indicates that a LEFT SHIFT is Present. Performed By: #### L 500.4100, L500.4050, L501.9985, L100.0100 #### [facility] Laboratory [address] [place], [address] Lymphocytes/100 WBC (Bld) 36.2 % Normal 19-41 [facility] Comment on above: Performed By: #### L 500.4100, L500.4050, L501.9985, L100.0100 #### [facility] [address] [place], [address] MCH (RBC) [Entitic mass] 29.5 pg Normal 27.0-32.0 [facility] Comment on above: Performed By: #### L 500.4100, L500.4050, [id number], L100.0100 #### [facility] Laboratory [address] [place], [address] MCHC (RBC) [Mass/Vol] 32.1 g/dL Normal 32-36 [facility] Comment on above: Performed By: #### L 500.4100, L500.4050, L501.9985, L100.0100 #### [facility] Laboratory [address] [place], [address] MCV (RBC) [Entitic vol] 91.8 fL Normal 81-99 [facility] Comment on above: Performed By: #### L 500.4100, L500.4050, L501.9985, L100.0100 #### [facility] Laboratory [address] [place], [address] Monocytes/100 WBC (Bld) 10.0 % Normal 0-10 [facility] Comment on above: Performed By: #### L 500.4100, L500.4050, L501.9985, L100.0100 #### [facility] Laboratory [address] [place], [address] Neutrophils/100 WBC (Bld) 51.1 % Normal 47-70 [facility] Comment on above: Performed By: #### L 500.4100, L500.4050, [id number], L100.0100 #### [facility] Laboratory [address] [place], [address] Nucleated RBC (Bld) [#/Vol] 0 10*3/uL Normal 0-5 [facility] Comment on above: Performed By: #### L 500.4100, L500.4050, L501.9985, L100.0100 #### [facility] Laboratory [address] [place], [address] Platelet mean volume (Bld) [Entitic vol] 9.8 fL Normal 6.2-12.0 [facility] Comment on above: Performed By: #### L 500.4100, L500.4050, L501.9985, L100.0100 #### [facility] Laboratory [address] [place], [address] Platelets (Bld) [#/Vol] 297 10*3/uL Normal 150-450 [facility] Comment on above: Performed By: #### L 500.4100, L500.4050, L501.9985, L100.0100 #### [facility] Laboratory [address] [place], [address] RBC (Bld) [#/Vol] 4.51 10*6/uL Normal 4.2-5.4 [facility] Comment on above: Performed By: #### L 500.4100, L500.4050, L501.9985, L100.0100 #### [facility] Laboratory [address] [place], [address] RDW SD 48.8 fl High 35.1-43.9 [facility] Comment on above: Performed By: #### L 500.4100, L500.4050, L501.9985, L100.0100 #### [facility] Laboratory [address] [place], [address] WBC (Bld) [#/Vol] 8.5 10*3/uL Normal 4.4-11.0 [facility] Comment on above: Performed By: #### L 500.4100, L500.4050, L501.9985, L100.0100 #### [facility] Laboratory [address] [place], [address] Comprehensive Metabolic Prof [facility] 11-26-2024 Albumin [Mass/Vol] 4.0 g/dL Normal 3.2-5.0 [facility] Comment on above: Performed By: #### L 500.4100, L500.4050, L501.9985, L100.0100 #### [facility] Laboratory [address] [place], [address] Albumin/Globulin [Mass ratio] 1.1 {ratio} Normal 0.9-2.4 [facility] Comment on above: Performed By: #### L 500.4100, L500.4050, L501.9985, L100.0100 #### [facility] Laboratory [address] [place], [address] ALK P 104 U/L Normal 45-117 [facility] Comment on above: Performed By: #### L 500.4100, L500.4050, L501.9985, L100.0100 #### [facility] Laboratory [address] [place], [address] ALT [Catalytic activity/Vol] 50 U/L Normal 13-56 [facility] Comment on above: Performed By: #### L 500.4100, L500.4050, L501.9985, L100.0100 #### [facility] Laboratory [address] [place], [address] AST [Catalytic activity/Vol] 38 U/L High 15-37 [facility] Comment on above: Performed By: #### L 500.4100, L500.4050, L501.9985, L100.0100 #### [facility] Laboratory [address] [place], [address] Bilirubin [Mass/Vol] 0.50 mg/dL Normal 0.20-1.00 [facility] Comment on above: Result Comment: For patients on eltrombopag therapy, use of Dimension Harrison TBIL is not recommended. Performed By: #### L 500.4100, L500.4050, L501.9985, L100.0100 #### [facility] Laboratory [address] [place], [address] BUN/CRE 22.0 RATIO High 10-20 [facility] Comment on above: Performed By: #### L 500.4100, L500.4050, L501.9985, L100.0100 #### [facility] Laboratory [address] [place], [address] CA,Total 9.7 mg/dL Normal 8.5-10.1 [facility] Comment on above: Performed By: #### L 500.4100, L500.4050, L501.9985, L100.0100 #### [facility] Laboratory [address] [place], [address] Chloride [Moles/Vol] 100 mmol/L Normal 98-107 [facility] Comment on above: Performed By: #### L 500.4100, L500.4050, L501.9985, L100.0100 #### [facility] Laboratory [address] [place], [address] CO2 [Moles/Vol] 31.0 mmol/L Normal 21.0-32.0 [facility] Comment on above: Performed By: #### L 500.4100, L500.4050, L501.9985, L100.0100 #### [facility] Laboratory [address] [place], [address] Creatinine [Mass/Vol] 0.73 mg/dL Normal 0.55-1.02 [facility] Comment on above: Result Comment: The validity of the calculated GFR GFRAA in patients over 70 years has not been determined. Clinical correlation is essential. Performed By: #### L 500.4100, L500.4050, L501.9985, L100.0100 #### [facility] [address] [place], [address] EST GFR - AA 101 mL/min Normal >60 [facility] Comment on above: Result Comment: Afri can [place] GFR Calc Performed By: #### L 500.4100, L500.4050, L501.9985, L100.0100 #### [facility] Laboratory [address] [place], [address] GAP 6 Normal 5-15 [facility] Comment on above: Performed By: #### L 500.4100, L500.4050, L501.9985, L100.0100 #### [facility] Laboratory [address] [place], [address] GFR/1.73 sq M.predicted among non-blacks MDRD (S/P/Bld) [Vol rate/Area] 83 mL/min/{1.73_m2} Normal >60 [facility] Comment on above: Result Comment: Non- GFR Calc Performed By: #### L 500.4100, L500.4050, L501.9985, L100.0100 #### [facility] Laboratory [address] [place], [address] Globulin (S) [Mass/Vol] 3.6 g/dL Normal 2.2-4.2 [facility] Comment on above: Performed By: #### L 500.4100, L500.4050, L501.9985, L100.0100 #### [facility] Laboratory [address] [place], [address] Glucose [Mass/Vol] 91 mg/dL Normal 74-106 [facility] Comment on above: Performed By: #### L 500.4100, L500.4050, L501.9985, L100.0100 #### [facility] Laboratory [address] [place], [address] Potassium [Moles/Vol] 4.1 mmol/L Normal 3.5-5.1 [facility] Comment on above: Performed By: #### L 500.4100, L500.4050, L501.9985, L100.0100 #### [facility] Laboratory [address] [place], [address] Sodium [Moles/Vol] 136 mmol/L Normal 136-145 [facility] Comment on above: Performed By: #### L 500.4100, L500.4050, L501.9985, L100.0100 #### [facility] Laboratory [address] [place], [address] T PROT 7.6 g/dL Normal 6.4-8.2 [facility] Comment on above: Performed By: #### L 500.4100, L500.4050, L501.9985, L100.0100 #### [facility] Laboratory [address] [place], [address] Urea nitrogen [Mass/Vol] 16 mg/dL Normal 7-18 [facility] Comment on above: Performed By: #### L 500.4100, L500.4050, L501.9985, L100.0100 #### [facility] Laboratory [address] [place], [address] Hemoglobin A1con 11-26-2024 HbA1c (Bld) [Mass fraction] 6.1 % High 3.8-5.6 [facility] Comment on above: Result Comment: Norm al < 5.7 % Prediabetic 5.7 - 6.4 % Diabetic >or= 6.5 % Please note range changes. Performed By: #### L 500.4100, L500.4050, L501.9985, L100.0100 #### [facility] Laboratory [address] [place], [address] Lipid Profileon 11-26-2024 Cholesterol [Mass/Vol] 193 mg/dL Normal 200 [facility] Comment on above: Result Comment: <200 mg/dL Desirable 200-240 mg/dL Borderline >240 mg/dL High Risk Performed By: #### L 500.4100, L500.4050, L501.9985, L100.0100 #### [facility] Laboratory [address] [place], [address] Cholesterol in HDL [Mass/Vol] 43 mg/dL Normal [facility] Comment on above: Result Comment: The drugs N-Acetylcysteine and Metamizole may falsely depress this assay. Reference Range HDL <40 mg/dL Low HDL Cholesterol HDL >or= 60 mg/dL High HDL Cholesterol Performed By: #### L 500.4100, L500.4050, L501.9985, L100.0100 #### [facility] [address] [place], [address] Cholesterol in LDL [Mass/Vol] 93 mg/dL Normal 0-130 [facility] Comment on above: Performed By: #### L 500.4100, L500.4050, L501.9985, L100.0100 #### [facility] Laboratory [address] [place], [address] Cholesterol in VLDL [Mass/Vol] 57 mg/dL High 5-40 [facility] Comment on above: Performed By: #### L 500.4100, L500.4050, L501.9985, L100.0100 #### [facility] Laboratory [address] [place], [address] Triglyceride [Mass/Vol] 284 mg/dL High [facility] Comment on above: Result Comment: The drugs N-Acetylcysteine and Metamizole may falsely depress this assay. Serum Triglycerides Reference Interval Normal <150 mg/dL Borderline high 150 - 199 mg/dL High 200 - 499 mg/dL Very High > or = 500 mg/dL Performed By: #### L 500.4100, L500.4050, L501.9985, L100.0100 #### [facility] Laboratory [address] [place], [address] Absolute lymphocyte countOrd ered By: Rose Mary Campbell on 11-30-2023 Lymphocytes Auto (Unsp spec) [#/Vol] 2.85 10*3/uL 0.83-4.51 [facility] Basophil percentageOrdered B y: Rose Mary Campbell on 11-30-2023 Basophils/100 WBC (Bld) 1.1 % 0-1 [facility] Bilirubin [Mass/Vol] 0.40 mg/dL 0.20-1.00 [facility] Comment on above: For patients on eltr ombopag therapy, use of Dimension [place] TBIL is not recommended. Chloride [Moles/Vol] 102 mmol/L 98-107 [facility] Cholesterol [Mass/Vol] 206 mg/dL <200 [facility] Comment on above: <200 mg/dL Desirable 200-240 mg/dL Borderline >240 mg/dL High Risk Eosinophils/100 WBC (Bld) 2.1 % 0-5 [facility] Glucose [Mass/Vol] 82 mg/dL 74-106 [facility] Neutrophils (Bld) [#/Vol] 4.3 10*3/uL 2.0-7.7 [facility] Neutrophils/100 WBC (Bld) 51.7 % 47-70 [facility] Potassium [Moles/Vol] 4.0 mmol/L 3.5-5.1 [facility] Protein [Mass/Vol] 7.4 g/dL 6.4-8.2 [facility] Sodium [Moles/Vol] 139 mmol/L 136-145 [facility] Triglyceride [Mass/Vol] 320 mg/dL <199 [facility] Comment on above: The drugs N-Acetylcy steine and Metamizole may falsely depress this assay.Serum Triglycerides Reference Interval Normal <150 mg/dL Borderline high 150 - 199 mg/dL High 200 - 499 mg/dL Very High > or = 500 mg/dL WBC (Bld) [#/Vol] 8.4 10*3/uL 4.4-11.0 [facility] Blood erythrocytes count (nu mber/volume)Ordered By: Rose Mary Campbell on 11-30-2023 RBC (Bld) [#/Vol] 4.55 10*6/uL 4.2-5.4 [facility] Blood hemoglobin measurement (mass/volume)Ordered By: Rose Mary Campbell on 11-30-2023 Hemoglobin (Bld) [Mass/Vol] 13.5 g/dL 12.0-15.0 [facility] Blood lymphocytes/100 leukoc ytesOrdered By: Rose Mary Campbell on 11-30-2023 Lymphocytes/100 WBC (Bld) 33.9 % 19-41 [facility] Blood monocytes/100 leukocyt esOrdered By: Rose Mary Campbell on 11-30-2023 Monocytes/100 WBC (Bld) 11.0 % 0-10 [facility] Blood platelet mean volumeOr dered By: Rose Mary Campbell on 11-30-2023 Platelet mean volume (Bld) [Entitic vol] 9.7 fL 6.2-12.0 [facility] Determination of erythrocyte mean corpuscular volume (MCV)Ordered By: Rose Mary Campbell on 11-30-2023 MCV (RBC) [Entitic vol] 93.4 fL 81-99 [facility] Hematocrit Auto (Bld) [Volum e fraction]Ordered By: Rose Mary Campbell on 11-30-2023 Hematocrit (Bld) [Volume fraction] 42.5 % 37-47 [facility] Laboratory - Chemistry and C hemistry - challengeOrdered By: Rose Mary Campbell on 11-30-2023 ALP [Catalytic activity/Vol] 95 U/L 45-117 [facility] ALT [Catalytic activity/Vol] 38 U/L 13-56 [facility] CO2 [Moles/Vol] 32.0 mmol/L 21.0-32.0 [facility] Globulin (S) [Mass/Vol] 3.6 g/dL 2.2-4.2 [facility] Urea nitrogen/Creatinine [Mass ratio] 18.7 mg/mg 10-20 [facility] Laboratory - Hematology and Cell countsOrdered By: Rose Mary Campbell on 11-30-2023 Erythrocyte distribution width (RBC) [Entitic vol] 50.5 fL 35.1-43.9 [facility] Erythrocyte distribution width (RBC) [Ratio] 14.6 % 11.6-14.6 [facility] Immature granulocytes/100 WBC (Bld) 0.200 % 0.0-0.9 [facility] Comment on above: IG% - Immature Granu locytes (promyelocytes, myelocytes and metamyelocytes) > 1% indicates that a LEFT SHIFT is Present. MCH (RBC) [Entitic mass] 29.7 pg 27.0-32.0 [facility] Nucleated RBC/100 WBC (Bld) [Ratio] 0 % 0-5 [facility] MCHC Auto (RBC) [Mass/Vol]Or dered By: Rose Mary Campbell on 11-30-2023 MCHC (RBC) [Mass/Vol] 31.8 g/dL 32-36 [facility] No Panel InformationOrdered By: Rose Mary Campbell on 11-30-2023 Estimated GFR (MDRD) Amer 106 mL/min >60 [facility] Comment on above: GFR Calc Estimated GFR (MDRD) Non-Af Amer 88 mL/min >60 [facility] Comment on above: Non- GFR Calc Platelets bldOrdered By: Osbaldo Campbell on 11-30-2023 Platelets (Bld) [#/Vol] 294 10*3/uL 150-450 [facility] Serum or plasma albumin godfrey urement (mass/volume)Ordered By: Rose Mary Campbell on 11-30-2023 Albumin [Mass/Vol] 3.8 g/dL 3.2-5.0 [facility] Serum or plasma albumin/glob ulin mass ratioOrdered By: Rose Mary Campbell on 11-30-2023 Albumin/Globulin [Mass ratio] 1.1 {ratio} 0.9-2.4 [facility] Serum or plasma calcium godfrey urement (mass/volume)Ordered By: Rose Mary Campbell on 11-30-2023 Calcium [Mass/Vol] 9.5 mg/dL 8.5-10.1 [facility] Serum or plasma cholesterol in HDL measurement (mass/volume)Ordered By: Rose Mary Campbell on 11-30-2023 Cholesterol in HDL [Mass/Vol] 38 mg/dL >40 [facility] Comment on above: The drugs N-Acetylcy steine and Metamizole may falsely depress this assay. Reference Range HDL <40 mg/dL Low HDL Cholesterol HDL >or= 60 mg/dL High HDL Cholesterol Serum or plasma cholesterol in VLDL measurement (mass/volume)Ordered By: Rose Mary Campbell on 11-30-2023 Cholesterol in VLDL [Mass/Vol] 64 mg/dL 5-40 [facility] Serum or plasma creatinine m easurement (mass/volume)Ordered By: Rose Mary Campbell on 11-30-2023 Creatinine [Mass/Vol] 0.70 mg/dL 0.55-1.02 [facility] Comment on above: The validity of the calculated GFR & GFRAA in patients over 70 years has not been determined. Clinical correlation is essential. Serum or plasma low density lipoprotein (LDL) cholesterol measurement (mass/volume)Ordered By: Rose Mary Campbell on 11-30-2023 Cholesterol in LDL [Mass/Vol] 104 mg/dL 0-130 [facility] Serum or plasma urea nitroge n measurement (mass/volume)Ordered By: Rose Mary Campbell on 11-30-2023 Urea nitrogen [Mass/Vol] 13 mg/dL 7-18 [facility] Thin prep Papanicolaou smear with manual screeningOrdered By: Rose Mary Campbell on 11-30-2023 Thin prep Papanicolaou smear with manual screening 20 U/L 15-37 [facility] Thin prep Papanicolaou smear with manual screening 5 5-15 [facility] Whole blood hemoglobin A1c/t otal hemoglobin ratio (mass fraction)Ordered By: Rose Mary Campbell on 11-30-2023 HbA1c (Bld) [Mass fraction] 5.6 % 3.8-5.6 [facility] Comment on above: Normal < 5.7 % Predi abetic 5.7 - 6.4 % Diabetic >or= 6.5 % Please note range changes. Absolute lymphocyte countOrd ered By: Rose Mary Campbell on 05-17-2023 Lymphocytes Auto (Unsp spec) [#/Vol] 2.74 10*3/uL 0.83-4.51 [facility] Basophil percentageOrdered B y: Rose Mary Campbell on 05-17-2023 Basophils/100 WBC (Bld) 0.8 % 0-1 [facility] Bilirubin [Mass/Vol] 0.50 mg/dL 0.20-1.00 [facility] Comment on above: For patients on eltr ombopag therapy, use of Dimension Harrison TBIL is not recommended. Chloride [Moles/Vol] 101 mmol/L 98-107 [facility] Cholesterol [Mass/Vol] 208 mg/dL <200 [facility] Comment on above: <200 mg/dL Desirable 200-240 mg/dL Borderline >240 mg/dL High Risk Eosinophils/100 WBC (Bld) 1.3 % 0-5 [facility] Glucose [Mass/Vol] 91 mg/dL 74-106 [facility] Neutrophils (Bld) [#/Vol] 4.5 10*3/uL 2.0-7.7 [facility] Neutrophils/100 WBC (Bld) 54.9 % 47-70 [facility] Potassium [Moles/Vol] 3.9 mmol/L 3.5-5.1 [facility] Protein [Mass/Vol] 7.6 g/dL 6.4-8.2 [facility] Sodium [Moles/Vol] 137 mmol/L 136-145 [facility] Triglyceride [Mass/Vol] 316 mg/dL <199 [facility] Comment on above: The drugs N-Acetylcy steine and Metamizole may falsely depress this assay.Serum Triglycerides Reference Interval Normal <150 mg/dL Borderline high 150 - 199 mg/dL High 200 - 499 mg/dL Very High > or = 500 mg/dL WBC (Bld) [#/Vol] 8.2 10*3/uL 4.4-11.0 [facility] Blood erythrocytes count (nu mber/volume)Ordered By: Rose Mary Campbell on 05-17-2023 RBC (Bld) [#/Vol] 4.53 10*6/uL 4.2-5.4 [facility] Blood hemoglobin measurement (mass/volume)Ordered By: Rose Mary Campbell on 05-17-2023 Hemoglobin (Bld) [Mass/Vol] 13.4 g/dL 12.0-15.0 [facility] Blood lymphocytes/100 leukoc ytesOrdered By: Rose Mary Campbell on 05-17-2023 Lymphocytes/100 WBC (Bld) 33.3 % 19-41 [facility] Blood monocytes/100 leukocyt esOrdered By: Rose Mary Campbell on 05-17-2023 Monocytes/100 WBC (Bld) 9.5 % 0-10 [facility] Blood platelet mean volumeOr dered By: Rose Mary Campbell on 05-17-2023 Platelet mean volume (Bld) [Entitic vol] 10.1 fL 6.2-12.0 [facility] Determination of erythrocyte mean corpuscular volume (MCV)Ordered By: Rose Mary Campbell on 05-17-2023 MCV (RBC) [Entitic vol] 91.8 fL 81-99 [facility] Hematocrit Auto (Bld) [Volum e fraction]Ordered By: Rose Mary Campbell on 05-17-2023 Hematocrit (Bld) [Volume fraction] 41.6 % 37-47 [facility] Laboratory - Chemistry and C hemistry - challengeOrdered By: Rose Mary Campbell on 05-17-2023 ALP [Catalytic activity/Vol] 91 U/L 45-117 [facility] ALT [Catalytic activity/Vol] 34 U/L 13-56 [facility] CO2 [Moles/Vol] 30.0 mmol/L 21.0-32.0 [facility] Globulin (S) [Mass/Vol] 3.7 g/dL 2.2-4.2 [facility] Urea nitrogen/Creatinine [Mass ratio] 23.1 mg/mg 10-20 [facility] Laboratory - Hematology and Cell countsOrdered By: Rose Mary Campbell on 05-17-2023 Erythrocyte distribution width (RBC) [Entitic vol] 49.6 fL 35.1-43.9 [facility] Erythrocyte distribution width (RBC) [Ratio] 14.6 % 11.6-14.6 [facility] Immature granulocytes/100 WBC (Bld) 0.200 % 0.0-0.9 [facility] Comment on above: IG% - Immature Granu locytes (promyelocytes, myelocytes and metamyelocytes) > 1% indicates that a LEFT SHIFT is Present. MCH (RBC) [Entitic mass] 29.6 pg 27.0-32.0 [facility] Nucleated RBC/100 WBC (Bld) [Ratio] 0 % 0-5 [facility] MCHC Auto (RBC) [Mass/Vol]Or dered By: Rose Mary Campbell on 05-17-2023 MCHC (RBC) [Mass/Vol] 32.2 g/dL 32-36 [facility] No Panel InformationOrdered By: Rose Mary Campbell on 05-17-2023 Estimated GFR (MDRD) Amer 99 mL/min >60 [facility] Comment on above: GFR Calc Estimated GFR (MDRD) Non-Af Amer 82 mL/min >60 [facility] Comment on above: Non- GFR Calc Platelets bldOrdered By: Osbaldo Campbell on 05-17-2023 Platelets (Bld) [#/Vol] 277 10*3/uL 150-450 [facility] Serum or plasma albumin godfrey urement (mass/volume)Ordered By: Rose Mary Campbell on 05-17-2023 Albumin [Mass/Vol] 3.9 g/dL 3.2-5.0 [facility] Serum or plasma albumin/glob ulin mass ratioOrdered By: Rose Mary Campbell on 05-17-2023 Albumin/Globulin [Mass ratio] 1.1 {ratio} 0.9-2.4 [facility] Serum or plasma calcium godfrey urement (mass/volume)Ordered By: Rose Mary Campbell on 05-17-2023 Calcium [Mass/Vol] 9.7 mg/dL 8.5-10.1 [facility] Serum or plasma cholesterol in HDL measurement (mass/volume)Ordered By: Rose Mary Campbell on 05-17-2023 Cholesterol in HDL [Mass/Vol] 39 mg/dL >40 [facility] Comment on above: The drugs N-Acetylcy steine and Metamizole may falsely depress this assay. Reference Range HDL <40 mg/dL Low HDL Cholesterol HDL >or= 60 mg/dL High HDL Cholesterol Serum or plasma cholesterol in VLDL measurement (mass/volume)Ordered By: Rose Mary Campbell on 05-17-2023 Cholesterol in VLDL [Mass/Vol] 63 mg/dL 5-40 [facility] Serum or plasma creatinine m easurement (mass/volume)Ordered By: Rose Mary Campbell on 05-17-2023 Creatinine [Mass/Vol] 0.74 mg/dL 0.55-1.02 [facility] Comment on above: The validity of the calculated GFR & GFRAA in patients over 70 years has not been determined. Clinical correlation is essential. Serum or plasma low density lipoprotein (LDL) cholesterol measurement (mass/volume)Ordered By: Rose Mary Campbell on 05-17-2023 Cholesterol in LDL [Mass/Vol] 106 mg/dL 0-130 [facility] Serum or plasma urea nitroge n measurement (mass/volume)Ordered By: Rose Mary Campbell on 05-17-2023 Urea nitrogen [Mass/Vol] 17 mg/dL 7-18 [facility] Thin prep Papanicolaou smear with manual screeningOrdered By: Rose Mary Campbell on 05-17-2023 Thin prep Papanicolaou smear with manual screening 25 U/L 15-37 [facility] Thin prep Papanicolaou smear with manual screening 6 5-15 [facility] Whole blood hemoglobin A1c/t otal hemoglobin ratio (mass fraction)Ordered By: Rose Mary Campbell on 05-17-2023 HbA1c (Bld) [Mass fraction] 5.9 % 3.8-5.6 [facility] Comment on above: Normal < 5.7 % Predi abetic 5.7 - 6.4 % Diabetic >or= 6.5 % Please note range changes. Absolute lymphocyte countOrd ered By: Rose Mary Campbell on 01-18-2023 Lymphocytes Auto (Unsp spec) [#/Vol] 2.64 10*3/uL 0.83-4.51 [facility] Basophil percentageOrdered B y: Rose Mary Campbell on 01-18-2023 Basophils/100 WBC (Bld) 0.7 % 0-1 [facility] Bilirubin [Mass/Vol] 0.40 mg/dL 0.20-1.00 [facility] Comment on above: For patients on eltr ombopag therapy, use of Dimension [place] TBIL is not recommended. Chloride [Moles/Vol] 102 mmol/L 98-107 [facility] Cholesterol [Mass/Vol] 204 mg/dL <200 [facility] Comment on above: <200 mg/dL Desirable 200-240 mg/dL Borderline >240 mg/dL High Risk Eosinophils/100 WBC (Bld) 1.2 % 0-5 [facility] Glucose [Mass/Vol] 123 mg/dL 74-106 [facility] Comment on above: Fasting Glucose resu lt from 100 to 125 mg/dL suggests IMPAIRED HOMEOSTASIS per A.D.A. criteria. Neutrophils (Bld) [#/Vol] 4.9 10*3/uL 2.0-7.7 [facility] Neutrophils/100 WBC (Bld) 57.9 % 47-70 [facility] Potassium [Moles/Vol] 4.1 mmol/L 3.5-5.1 [facility] Protein [Mass/Vol] 7.4 g/dL 6.4-8.2 [facility] Sodium [Moles/Vol] 140 mmol/L 136-145 [facility] Triglyceride [Mass/Vol] 465 mg/dL <199 [facility] Comment on above: The drugs N-Acetylcy steine and Metamizole may falsely depress this assay. TRIGLYCERIDE IS GREATER THAN 400 mg/dL. LDL RESULT IS INVALID AND WILL NOT BE REPORTED.Serum Triglycerides Reference Interval Normal <150 mg/dL Borderline high 150 - 199 mg/dL High 200 - 499 mg/dL Very High > or = 500 mg/dL WBC (Bld) [#/Vol] 8.4 10*3/uL 4.4-11.0 [facility] Blood erythrocytes count (nu mber/volume)Ordered By: Rose Mary Campbell on 01-18-2023 RBC (Bld) [#/Vol] 4.35 10*6/uL 4.2-5.4 [facility] Blood hemoglobin measurement (mass/volume)Ordered By: Rose Mary Campbell on 01-18-2023 Hemoglobin (Bld) [Mass/Vol] 13.2 g/dL 12.0-15.0 [facility] Blood lymphocytes/100 leukoc ytesOrdered By: Rose Mary Campbell on 01-18-2023 Lymphocytes/100 WBC (Bld) 31.5 % 19-41 [facility] Blood monocytes/100 leukocyt esOrdered By: Rose Mary Campbell on 01-18-2023 Monocytes/100 WBC (Bld) 8.2 % 0-10 [facility] Blood platelet mean volumeOr dered By: Rose Mary Campbell on 01-18-2023 Platelet mean volume (Bld) [Entitic vol] 9.9 fL 6.2-12.0 [facility] Determination of erythrocyte mean corpuscular volume (MCV)Ordered By: Rose Mary Campbell on 01-18-2023 MCV (RBC) [Entitic vol] 90.8 fL 81-99 [facility] Hematocrit Auto (Bld) [Volum e fraction]Ordered By: Rose Mary Campbell on 01-18-2023 Hematocrit (Bld) [Volume fraction] 39.5 % 37-47 [facility] Laboratory - Chemistry and C hemistry - challengeOrdered By: Rose Mary Campbell on 01-18-2023 ALP [Catalytic activity/Vol] 86 U/L 45-117 [facility] ALT [Catalytic activity/Vol] 40 U/L 13-56 [facility] CO2 [Moles/Vol] 31.0 mmol/L 21.0-32.0 [facility] Globulin (S) [Mass/Vol] 3.6 g/dL 2.2-4.2 [facility] Urea nitrogen/Creatinine [Mass ratio] 18.3 mg/mg 10-20 [facility] Laboratory - Hematology and Cell countsOrdered By: Rose Mary Campbell on 01-18-2023 Erythrocyte distribution width (RBC) [Entitic vol] 47.4 fL 35.1-43.9 [facility] Erythrocyte distribution width (RBC) [Ratio] 14.2 % 11.6-14.6 [facility] Immature granulocytes/100 WBC (Bld) 0.500 % 0.0-0.9 [facility] Comment on above: IG% - Immature Granu locytes (promyelocytes, myelocytes and metamyelocytes) > 1% indicates that a LEFT SHIFT is Present. MCH (RBC) [Entitic mass] 30.3 pg 27.0-32.0 [facility] Nucleated RBC/100 WBC (Bld) [Ratio] 0 % 0-5 [facility] MCHC Auto (RBC) [Mass/Vol]Or dered By: Rose Mary Campbell on 01-18-2023 MCHC (RBC) [Mass/Vol] 33.4 g/dL 32-36 [facility] No Panel InformationOrdered By: Rose Mary Campbell on 01-18-2023 Estimated GFR (MDRD) Amer 95 mL/min >60 [facility] Comment on above: GFR Calc Estimated GFR (MDRD) Non-Af Amer 79 mL/min >60 [facility] Comment on above: Non- GFR Calc Platelets bldOrdered By: Osbaldo Campbell on 01-18-2023 Platelets (Bld) [#/Vol] 309 10*3/uL 150-450 [facility] Serum or plasma albumin godfrey urement (mass/volume)Ordered By: Rose Mary Campbell on 01-18-2023 Albumin [Mass/Vol] 3.8 g/dL 3.2-5.0 [facility] Serum or plasma albumin/glob ulin mass ratioOrdered By: Rose Mary Campbell on 01-18-2023 Albumin/Globulin [Mass ratio] 1.1 {ratio} 0.9-2.4 [facility] Serum or plasma calcium godfrey urement (mass/volume)Ordered By: Rose Mary Campbell on 01-18-2023 Calcium [Mass/Vol] 9.5 mg/dL 8.5-10.1 [facility] Serum or plasma cholesterol in HDL measurement (mass/volume)Ordered By: Rose Mary Campbell on 01-18-2023 Cholesterol in HDL [Mass/Vol] 37 mg/dL >40 [facility] Comment on above: The drugs N-Acetylcy steine and Metamizole may falsely depress this assay. Reference Range HDL <40 mg/dL Low HDL Cholesterol HDL >or= 60 mg/dL High HDL Cholesterol Serum or plasma cholesterol in VLDL measurement (mass/volume)Ordered By: Rose Mary Campbell on 01-18-2023 Cholesterol in VLDL [Mass/Vol] [facility] Comment on above: Test not performed Serum or plasma creatinine m easurement (mass/volume)Ordered By: Rose Mary Campbell on 01-18-2023 Creatinine [Mass/Vol] 0.76 mg/dL 0.55-1.02 [facility] Comment on above: The validity of the calculated GFR & GFRAA in patients over 70 years has not been determined. Clinical correlation is essential. Serum or plasma low density lipoprotein (LDL) cholesterol measurement (mass/volume)Ordered By: Rose Mary Campbell on 01-18-2023 Cholesterol in LDL [Mass/Vol] [facility] Comment on above: Test not performed Serum or plasma urea nitroge n measurement (mass/volume)Ordered By: Rose Mary Campbell on 01-18-2023 Urea nitrogen [Mass/Vol] 14 mg/dL 7-18 [facility] Thin prep Papanicolaou smear with manual screeningOrdered By: Rose Mary Campbell on 01-18-2023 Thin prep Papanicolaou smear with manual screening 27 U/L 15-37 [facility] Thin prep Papanicolaou smear with manual screening 7 5-15 [facility] Whole blood hemoglobin A1c/t otal hemoglobin ratio (mass fraction)Ordered By: Rose Mary Campbell on 01-18-2023 HbA1c (Bld) [Mass fraction] 6.1 % 3.8-5.6 [facility] Comment on above: Normal < 5.7 % Predi abetic 5.7 - 6.4 % Diabetic >or= 6.5 % Please note range changes. CBC W/DIFFon 12-06-2017 BASO ABS 0.10 K/CU MM Normal 0-0.2 [facility] Comment on above: Performed By: #### L 200.27237 ####[facility] [id number] [place], [place] [address]Ju# [phone] Basophils/100 WBC Auto (Bld) 1.2 % Normal 0-2 [facility] Comment on above: Performed By: #### L 200.72521 ####[facility] [id number] [place], [place] [address]Tr# [phone] EOS ABS 0.10 K/CU MM Normal 0-0.5 [facility] Comment on above: Performed By: #### L 200.87808 ####[facility] [id number] [place], [place] [address]Wa# [phone] Eosinophils/100 leukocytes 1.8 % Normal 0-5 [facility] Comment on above: Performed By: #### L 200.96240 ####[facility] [id number] [place], [place] [address]Xt# [phone] Erythrocyte distribution width Auto Ratio (RBC) 15.0 % High 11-14.5 [facility] Comment on above: Performed By: #### L 200.82345 ####[facility] [id number] [place] [address]It# [phone] Erythrocytes (RBC) 4.51 M/CU MM Normal 3.90-5.30 [facility] Comment on above: Performed By: #### L 200.68504 ####[id number] [place], [place] [address]Lh# [phone] Erythrocytes (RBC) 0.0 % Normal Less than 1 [facility] Comment on above: Performed By: #### L 200.44116 ####[facility] [id number] [place] [address]Tk# [phone] Hematocrit (HCT) 40.7 % Normal 35.0-47.0 [facility] [place] Comment on above: Performed By: #### L 200.12750 ####[facility] [id number] [place], [place] [address]Jy# [phone] Hemoglobin mass conc (Bld) 13.0 g/dL Normal 11.5-15.5 [facility] Comment on above: Performed By: #### L 200.73357 ####[facility] [id number] [place], [place] [address]Vc# [phone] IMMATR GRAN ABS 0.00 K/CU MM Normal Less than 2 [facility] Comment on above: Performed By: #### L 200.89079 ####[facility] [id number] [place], [place] [address]Wf# [phone] IMMATURE GRAN % 0.3 % Normal Less than 2 [facility] [place] Comment on above: Performed By: #### L 200.20749 ####[facility] [id number] [place], [place] [address]Is# [phone] Lymphocytes 3.00 K/CU MM Normal 0.9-4.4 [facility] [place] Comment on above: Performed By: #### L 200.34869 ####[facility] [id number] [place] [address]Bo# [phone] Lymphocytes/100 leukocytes 38.6 % Normal 20-40 [facility] Comment on above: Performed By: #### L 200.19596 ####[facility] [id number] [place] [address]Zs# [phone] MCHC mass conc (RBC) 31.9 g/dL Low 32.0-36.0 [facility] Comment on above: Performed By: #### L 200.74220 ####[facility] [id number] [place] [address]Xk# [phone] MCV 90.2 fL Normal 80.0-99.0 [facility] Comment on above: Performed By: #### L 200.54858 ####[facility] [id number] [place], [place] [address]Mr# [phone] MONO ABS 0.50 K/CU MM Normal 0.1-1.1 [facility] [place] Comment on above: Performed By: #### L 200.31866 ####[facility] [id number] [place] [address]Zg# [phone] Monocytes/100 leukocytes 6.7 % Normal 2-10 [facility] Comment on above: Performed By: #### L 200.46752 ####[facility] [id number] [place], [place] [address]Fr# [phone] Neutrophils 4.00 K/CU MM Normal 2.0-8.3 [facility] Comment on above: Performed By: #### L 200.31726 ####[facility] [id number] [place], [place] [address]Jg# [phone] Neutrophils/100 WBC Auto (Bld) 51.4 % Normal 45-75 [facility] Comment on above: Performed By: #### L 200.89543 ####[facility] [id number] [place], [place] [address]Tl# [phone] Platelet mean volume (PMV) 9.9 fL Normal 9.4-12.4 [facility] Comment on above: Performed By: #### L 200.46393 ####[facility] [id number] [place], [place] [address]As# [phone] Platelets 271 K/CU MM Normal 150-450 [facility] Comment on above: Performed By: #### L 200.23328 ####[facility] [id number] [place], [place] [address]Sx# [phone] WBC (Leukocytes) 7.8 K/CU MM Normal 4.5-11.0 [facility] Comment on above: Performed By: #### L 200.56061 ####[facility] [id number] [place], [place] [address]Jh# [phone] CMPon 12-06-2017 Alanine aminotransferase (ALT) 33 U/L Normal 13-61 [facility] Comment on above: Result Comment: RESU LTS MAY BE FALSELY DEPRESSED AFTER THE ADMINISTRATION OFSULFASALAZINE AND/OR SULFAPYRIDINE. Performed By: #### L 500.54092, L500.83338, L500.66710 ####[facility] [id number] [place], [place] [address]Ro# [phone] Albumin 4.2 g/dL Normal 3.2-5.0 [facility] Comment on above: Performed By: #### L 500.18119, L500.17456, L500.59193 ####[facility] [id number] [place], [place] [address]Bi# [phone] Albumin/Globulin Ratio 1.2 {ratio} Normal 0.8-2.0 [facility] Comment on above: Performed By: #### L 500.29670, L500.91226, L500.36241 ####[facility] [id number] [place], [place] [address]Fe# [phone] ALK PHOS 117 U/L Normal 45-117 [facility] Comment on above: Performed By: #### L 500.29353, L500.49928, L500.59327 ####[facility] [id number] [place], [place] [address]Ph# [phone] Anion gap 6 mmol/L Normal 5-16 [facility] Comment on above: Performed By: #### L 500.14428, L500.89056, L500.26672 ####[facility] [id number] [place], [place] [address]Qn# [phone] BILI TOTAL 0.5 MG/DL Normal 0.2-1.0 [facility] Comment on above: Performed By: #### L 500.80185, L500.78151, L500.16997 ####[facility] [id number] [place], [place] [address]Km# [phone] BUN/Creatinine Ratio 18 mg/mg Normal 15-24 [facility] Comment on above: Performed By: #### L 500.23666, L500.98759, L500.20155 ####[facility] [id number] [place], [place] [address]Lc# [phone] Calcium 9.8 mg/dL Normal 8.5-10.1 [facility] Comment on above: Performed By: #### L 500.89637, L500.57028, L500.50472 ####[facility] [id number] [place], [place] [address]Sw# [phone] Chloride 101 mmol/L Normal 98-107 [facility] Comment on above: Performed By: #### L 500.26822, L500.50544, L500.21053 ####[facility] [id number] [place], [place] [address]Gy# [phone] CO2 31 mmol/L Normal 21-32 [facility] Comment on above: Performed By: #### L 500.57208, L500.26833, L500.83014 ####[facility] [id number] [place], [place] [address]Ie# [phone] Creatinine 0.620 mg/dL Normal 0.510-0.950 [facility] Comment on above: Result Comment: Marcela ents receiving either N-Acetylcysteine (NAC) orMetamizole prior to venipuncture, may have falsely depressedresults. Performed By: #### L 500.36617, L500.30529, L500.05076 ####[facility] [id number] [place], [place] [address]Py# [phone] Globulin 3.4 g/dL Normal 2.2-4.2 [facility] Comment on above: Performed By: #### L 500.25597, L500.91196, L500.46613 ####[facility] [id number] [place], [place] [address]Pz# [phone] Glucose mass conc 81 mg/dL Normal 70-100 [facility] Comment on above: Result Comment: 70-1 00- Normal Fasting; 100-125 Impaired Fasting; greaterthan 126 on more than one result- Diabetes. ADA guidelines.Results may be falsely elevated after the administration ofSulfapyridine.Results may be falsely depressed after the administration ofSulfasalazine. Performed By: #### L 500.47845, L500.52626, L500.98756 ####[facility] [id number] [place], [place] [address]Hz# [phone] Potassium molar conc 4.3 mmol/L Normal 3.5-5.1 [facility] [place] Comment on above: Performed By: #### L 500.85958, L500.58502, L500.65634 ####[facility] [id number] [place], [place] [address]Jo# [phone] Protein 7.6 g/dL Normal 6.0-8.5 [facility] [place] Comment on above: Performed By: #### L 500.93778, L500.75314, L500.80454 ####[facility] [id number] [place], [place] [address]Dp# [phone] SGOT (AST) 20 U/L Normal 8-34 [facility] Comment on above: Result Comment: RESU LTS MAY BE FALSELY DEPRESSED AFTER THE ADMINISTRATION OFSULFASALAZINE AND/OR SULFAPYRIDINE. Performed By: #### L 500.72322, L500.51967, L500.69864 ####[facility] [id number] [place], [place] [address]Tx# [phone] Sodium 138 mmol/L Normal 136-145 [facility] Comment on above: Performed By: #### L 500.60954, L500.39196, L500.23186 ####[facility] [id number] [place], [place] [address]Gj# [phone] Urea nitrogen 11 mg/dL Normal 7-26 [facility] [place] Comment on above: Performed By: #### L 500.09490, L500.86251, L500.06309 ####[facility] [id number] [place], [place] [address]Ad# [phone] GFR ESTon 12-06-2017 IF AMER Greater than 60 Normal [facility] [place] Comment on above: Performed By: #### L 500.28533, L500.70593, L500.50389 ####[facility] [id number] [place], [place] [address]Fs# [phone] IF non-AFR AMER Greater than 60 Normal [facility] Comment on above: Performed By: #### L 500.32554, L500.96248, L500.24564 ####[facility] [id number] [place], [place] [address]Ur# [phone] LIPIDon 12-06-2017 Cholesterol 174 mg/dL Normal 0-199 [facility] Comment on above: Performed By: #### L 500.40337, L500.44590, L500.19084 ####[facility] [id number] [place], [place] [address]Ke# [phone] HDL Cholesterol 54 mg/dL Normal [place]ATER [place] 40 [facility] Comment on above: Result Comment: Marcela ents receiving Metamizole prior to venipuncture, mayhave falsely depressed results. Performed By: #### L 500.61708, L500.68968, L500.13333 ####[facility] [id number] [place], [place] [address]Lv# [phone] LDL Cholesterol 88 MG/DL Normal 0-129 [facility] Comment on above: Result Comment: ___C HOLESTEROL/HDL RATIO RISK___ CHD RISK = Total CHOL LDL HDL (CHOL/HDL) --------Recommended <200 <130 >35 <3.4 --Borderline 200-239 130-159 3.4-4.99 ------High >240 >160 >5.0 -- Performed By: #### L 500.15418, L500.54908, L500.81928 ####[facility] [id number] [place], [place] [address]Xh# [phone] Triglyceride 159 mg/dL High 30-149 [facility] Comment on above: Result Comment: Marcela ents receiving either N-Acetylcysteine (NAC) orMetamizole prior to venipuncture, may have falsely depressedresults. Performed By: #### L 500.95580, L500.33968, L500.15726 ####[facility] [id number] [place], [place] [address]Dk# [phone] UA COMPLETEon 12-06-2017 UA APPEARANCE CLOUDY Normal CLEAR [facility] [place] Comment on above: Performed By: #### L 600.87371, L600.22024 ####[facility] [id number] [place], [place] [address]Vf# [phone] UA BILIRUBIN Negative Normal NEGATIVE [facility] [place] Comment on above: Performed By: #### L 600.06030, L600.38900 ####[facility] [id number] [place], [place] [address]Dq# [phone] UA BLOOD Negative Normal NEGATIVE [facility] Comment on above: Performed By: #### L 600.47172, L600.59690 ####[facility] [id number] [place], [place] [address]Od# [phone] UA COMMENT UA MICROSCOPIC Normal N [facility] [place] Comment on above: Performed By: #### L 600.93816, L600.66995 ####[facility] [id number] [place], [place] [address]Zs# [phone] UA KETONE Negative Normal NEGATIVE [facility] [place] Comment on above: Performed By: #### L 600.98649, L600.47225 ####[facility] [id number] [place], [place] [address]Gr# [phone] UA LK ESTERASE TRACE Normal NEGATIVE [facility] [place] Comment on above: Performed By: #### L 600.90471, L6.83335 ####[facility] [id number] [place] [address]Dn# [phone] UA NITRITE Negative Normal NEGATIVE [facility] [place] Comment on above: Performed By: #### L 600.26718, L6.89573 ####[facility] [id number] [place] [address]Oz# [phone] UA PH 7.0 Normal 5-6 [facility] Comment on above: Performed By: #### L 600.56203, L6.36912 ####[facility] [id number] [place] [address]Mw# [phone] UA PROTEIN Negative Normal NEGATIVE [facility] [place] Comment on above: Performed By: #### L 600.55815, L6.60253 ####[facility] [id number] [place], [place] [address]Kl# [phone] UA SPEC GRAV 1.009 Normal 1.005-1.030 [facility] [place] Comment on above: Performed By: #### L 600.49037, L6.02702 ####[facility] [id number] [place] [address]Fa# [phone] UA UROBILINOGEN NORMAL Normal NORMAL [facility] [place] Comment on above: Performed By: #### L 600.72298, L600.57304 ####[facility] [id number] [place], [place] [address]Bu# [phone] Urine, color YELLOW Normal [facility] [place] Comment on above: Performed By: #### L 600.10350, L600.57643 ####[facility] [id number] [place], [place] [address]Gl# [phone] Urine, glucose Negative Normal NORMAL [facility] [place] Comment on above: Performed By: #### L 600.07127, L600.93927 ####[facility] [id number] [place], [place] [address]On# [phone] UA MICROSCOPICon 12-06-2017 HYALINE CAST 2 /LPF High 0-1 [facility] [place] Comment on above: Performed By: #### L 600.54312, L600.45139 ####[facility] [id number] [place] [address]Zi# [phone] UA BACTERIA TRACE Normal NONE [facility] Comment [facility] above: Performed By: #### L 600.13980, L600.31262 ####[facility] [id number] [place] [address]Se# [phone] UA EPITH CELLS 12 EPI/HPF High 0-5 [facility] [place] Comment on above: Performed By: #### L 600.67853, L600.61060 ####[facility] [id number] [place] [address]Rc# [phone] UA WBC 3 WBC/HPF Normal 0-5 [facility] Comment on above: Performed By: #### L 600.31723, L600.50905 ####[facility] [id number] [place] [address]Zt# [phone] Urine, erythrocytes 2 RBC/HPF Normal 0-3 [facility] [place] Comment on above: Performed By: #### L 600.02946, L600.72230 ####[facility] [id number] [place] [address]Yf# [phone] LIPIDon 06-07-2017 Cholesterol 122 mg/dL Normal 0-199 [facility] Comment on above: Performed By: #### L 500.21631, L500.36261 ####[facility] [id number] [place] [address] [place] [address]Zb# [phone] HDL Cholesterol 31 mg/dL Low [place] 40 [facility] Comment on above: Result Comment: Marcela ents receiving Metamizole prior to venipuncture, mayhave falsely depressed results. Performed By: #### L 500.60542, L500.81680 ####[facility] [id number] [place], [place] [address]Tn# [phone] LDL Cholesterol 72 MG/DL Normal 0-129 [facility] Comment on above: Result Comment: ___C HOLESTEROL/HDL RATIO RISK___ CHD RISK = Total CHOL LDL HDL (CHOL/HDL) --------Recommended <200 <130 >35 <3.4 --Borderline 200-239 130-159 3.4-4.99 ------High >240 >160 >5.0 -- Performed By: #### L 500.31859, L500.54497 ####[facility] [id number] [place], [place] [address]Pl# [phone] Triglyceride 96 mg/dL Normal 30-149 [facility] [place] Comment on above: Result Comment: Marcela ents receiving either N-Acetylcysteine (NAC) orMetamizole prior to venipuncture, may have falsely depressedresults. Performed By: #### L 500.05577, L500.98676 ####[facility] [id number] [place], [place] [address]Ep# [phone] LIVERon 06-07-2017 Alanine aminotransferase (ALT) 34 U/L Normal 13-61 [facility] [place] Comment on above: Performed By: #### L 500.13530, L500.09885 ####[facility] [id number] [place], [place] [address]Rf# [phone] Albumin 3.9 g/dL Normal 3.2-5.0 [facility] Comment on above: Performed By: #### L 500.83647, L500.69015 ####[facility] [id number] [place] [address]Hc# [phone] Albumin/Globulin Ratio 1.2 {ratio} Normal 0.8-2.0 [facility] Comment on above: Performed By: #### L 500.99741, L500.46552 ####[facility] [id number] [place], [place] [address]Ng# [phone] ALK PHOS 104 U/L Normal 45-117 [facility] Comment on above: Performed By: #### L 500.86237, L500.79255 ####[facility] [id number] [place] [address]Nh# [phone] BILI DIRECT 0.14 MG/DL Normal 0.00-0.20 [facility] Comment on above: Performed By: #### L 500.69518, L500.77339 ####[facility] [id number] [place] [address]Tt# [phone] BILI TOTAL 0.5 MG/DL Normal 0.2-1.0 [facility] Comment on above: Performed By: #### L 500.56352, L500.42794 ####[facility] [id number] [place], [place] [address]Zn# [phone] Globulin 3.3 g/dL Normal 2.2-4.2 [facility] Comment on above: Performed By: #### L 500.03484, L500.49832 ####[facility] [id number] [place], [place] [address]Dr# [phone] Protein 7.2 g/dL Normal 6.0-8.5 [facility] Comment on above: Performed By: #### L 500.33648, L500.72511 ####[facility] [id number] [place], [place] [address]Td# [phone] SGOT (AST) 25 U/L Normal 8-34 [facility] Comment on above: Performed By: #### L 500.84463, L500.70803 ####[facility] [id number] [place], [place] [address]Bx# [phone] Vital Signs Date Time Vital Sign Value Performing Clinician Faci ericy 11-30-2023 16:01-0500 Body height 149.86 cm [facility] 11-30-2023 16:01-0500 Body mass index (BMI) [Ratio] 43.4 kg/m2 [facility] 11-30-2023 16:01-0500 Body temperature 97.5 [degF] [facility] 11-30-2023 16:01-0500 Body weight 97.52 kg [facility] 11-30-2023 16:01-0500 Diastolic blood pressure 60 mm[Hg] [facility] 11-30-2023 16:01-0500 Heart rate 76 /min [facility] 11-30-2023 16:01-0500 Respiratory rate 18 /min [facility] 11-30-2023 16:01-0500 SaO2% (BldA) [Mass fraction] 95 % [facility] 11-30-2023 16:01-0500 Systolic blood pressure 130 mm[Hg] [facility] 08-25-2023 14:58-0400 Body mass index (BMI) [Ratio] 43.4 kg/m2 [facility] 08-25-2023 14:58-0400 Body temperature 97.7 [degF] [facility] 08-25-2023 14:58-0400 Body weight 97.52 kg [facility] 08-25-2023 14:58-0400 Diastolic blood pressure 80 mm[Hg] [facility] 08-25-2023 14:58-0400 Heart rate 83 /min [facility] 08-25-2023 14:58-0400 Respiratory rate 18 /min [facility] 08-25-2023 14:58-0400 SaO2% (BldA) [Mass fraction] 97 % [facility] 08-25-2023 14:58-0400 Systolic blood pressure 118 mm[Hg] [facility] 05-17-2023 15:22-0400 Body height 149.86 cm [facility] 05-17-2023 15:22-0400 Body mass index (BMI) [Ratio] 43.8 kg/m2 [facility] 05-17-2023 15:22-0400 Body temperature 98.1 [degF] [facility] 05-17-2023 15:22-0400 Body weight 98.42 kg [facility] 05-17-2023 15:22-0400 Diastolic blood pressure 70 mm[Hg] [facility] 05-17-2023 15:22-0400 Heart rate 102 /min [facility] 05-17-2023 15:22-0400 Respiratory rate 18 /min [facility] 05-17-2023 15:22-0400 SaO2% (BldA) [Mass fraction] 98 % [facility] 05-17-2023 15:22-0400 Systolic blood pressure 115 mm[Hg] [facility] 01-18-2023 14:59-0500 Body height 149.86 cm [facility] 01-18-2023 14:59-0500 Body mass index (BMI) [Ratio] 45.6 kg/m2 [facility] 01-18-2023 14:59-0500 Body temperature 98.1 [degF] [facility] 01-18-2023 14:59-0500 Body weight 102.51 kg [facility] 01-18-2023 14:59-0500 Diastolic blood pressure 60 mm[Hg] [facility] 01-18-2023 14:59-0500 Heart rate 80 /min [facility] 01-18-2023 14:59-0500 Respiratory rate 18 /min [facility] 01-18-2023 14:59-0500 SaO2% (BldA) [Mass fraction] 96 % [facility] 01-18-2023 14:59-0500 Systolic blood pressure 130 mm[Hg] [facility] 01-11-2023 18:26-0500 Body mass index (BMI) [Ratio] 44.4 kg/m2 [facility] 01-11-2023 18:26-0500 Body temperature 97.2 [degF] [facility] 01-11-2023 18:26-0500 Body weight 99.79 kg [facility] 01-11-2023 18:26-0500 Diastolic blood pressure 80 mm[Hg] [facility] 01-11-2023 18:26-0500 Heart rate 80 /min [facility] 01-11-2023 18:26-0500 Respiratory rate 18 /min [facility] 01-11-2023 18:26-0500 SaO2% (BldA) [Mass fraction] 95 % [facility] 01-11-2023 18:26-0500 Systolic blood pressure 130 mm[Hg] [facility] Encounters Encounter Date Encounter Type Care Provider Facility Start: 08-15-2025 ambulatory Rose Mary Campbell [employer] Faci lity:[facility] Start: 07-29-2025 End: 07-29-2025 ambulatory Rose Mary Campbell [employer] Facility:[facility] Start: 11-26-2024 End: 11-26-2024 ambulatory Rose Mary Campbell [employer] Facility:[facility] Start: 11-30-2023 End: 11-30-2023 ambulatory [facility] Work Phone: Start: 11-30-2023 End: 11-30-2023 Patient encounter procedure [facility]Laboratory, Specimen Work Phone: Start: 05-17-2023 End: 05-17-2023 ambulatory [facility] Work Phone: Start: 05-17-2023 End: 05-17-2023 Patient encounter procedure [facility]Labor[facility], Specimen Work Phone: Start: 02-17-2023 End: 02-17-2023 Patient encounter procedure [facility]Out[facility] Imaging Work Phone: Start: 01-18-2023 End: 01-18-2023 ambulatory [facility] Work Phone: Start: 01-18-2023 End: 01-18-2023 Patient encounter procedure [facility]Labor[facility], Specimen Start: 01-06-2021 Patient encounter status [facility] Start: 12-06-2017 Ambulatory Javed Barlow y:[facility] Start: 06-07-2017 Ambulatory Javed Barlow y:[facility] Procedures Date Procedure Procedure Detail Performing Clinician Start: 02-17-2023 Screening mammography H/O: surgery H/O hemorrhoidectomy H/O: tubal ligation S/P tubal ligation History of cholecystectomy History of cholecystectomy Plan of Treatment Date Care Activity Detail Author MG Breast - left Screening W [facility] Immunizations Immunization Date Immunization Notes Care Provider Teresa galvan 12-24-2020 tetanus toxoid, redu chuyita diphtheria toxoid, and acellular pertussis vaccine, adsorbed [facility] Payers Date Payer Category Payer Private Health Insurance [id number] 2024 Medicare [id number] 2024 Self-pay [id number] 2015 Private Health Insurance [id number] 2014 Medicare [id number] Unknown [id number] Unknown [id number] Unknown [id number] Social History Date Type Detail Facility Start: 03-10-2021 End: 03-10-2021 Tobacco smoking status NHIS Unknown if ever smoked [facility] Start: 03-10-2021 Non-smoker [facility] Start: 1950 Sex Assigned At Female W [facility] Medical Equipment Procedure Code Equipment Code Equipment [...] acute Maxillary sinusitis acute Wellness examination acute [facility] Work Phone: Evaluation note Note Date & Type Note Facility Evaluation note Diagnosis Onset Date Diabetes type 2, uncontrolled acute Hyperlipemia chronic Hypertension chronic [facility] Work Phone: Evaluation note Note Date & Type Note Facility Evaluation note Diagnosis Onset Date Acne rosacea acute Perioral dermatitis acute Diabetes type 2, uncontrolled acute Gastroesophageal reflux disease acute Depression chronic Hyperlipemia chronic Hypertension [facility] Work Phone: Summary Purpose Family History No Family History Records Found Relationship Condition Age at Onset Recorded Date/T vinnie father Cardiac disease Unknown brother Cardiac disease Unknown aunt Disorder of thyroid Unknown mother Alzheimer's disease Unknown Advance Directives No Advanced Directives Records Found Advance Directive Response Recorded Date/ Time Living Will No March 10, 2021 11:33am Power of Alarm Field Technician No March 10 11:33am Advance Directive Response Recorded Date/ Time Living Will No March 10, 2021 12:33pm Power of Alarm Field Technician No March 10 12:33pm Chief Complaint and [...] section and content) DATE CREATED AUTHOR 05/14/2018 [facility] Blank nter [place] DATE CREATED AUTHOR AUTHOR'S ORGANIZ ATION 08/13/2025 [facility] Care Teams (unrecognized sec tion and content) Team Status: Active Member Role Status Dates Rose Mary Campbell [employer], [employer] Primary Care Provider Active Team Status: Inactive Member Role Status Dates Rose Mary Campbell [employer], [employer] Primary Care Pr ovider, Attending Provider, Referring Provider Active Team Status: Inactive Member Role Status Dates Rose Mary Campbell [employer], [employer] Primary Care Provider, Attend ing Provider Active [...] BE BASED ON THE PRIMARY CLINICAL RECORDS. [employer] provides no warranty or guarantee of the accuracy or completeness of information in this document.
== END | disposition home or self-care (01) ==
LOC: OPBI 11:55
PROVIDERS: PCP Nurse Practitioner; Referring Provider Nurse Practitioner; Visit Provider Nurse Practitioner
DX: Z12.31 Encounter for screening mammogram for malignant neoplasm of breast (principal)
CPT/HCPCS: 77063; 77067

== ENCOUNTER → 2025-11-04 | Outpatient (CLI) | payer MEDICARE, OTHER, SELFPAY ==
--- OUTSIDE RECORDS SUMMARY | 2025-11-04 21:28 | XMS RPT_ITS | CCD ---
Author Organization [facility] Care Team Providers Care Principal Technical Writer Name Role Phone Javed Pelletier Unavailable Unavailable Javed Pelletier Unavailable Unavailable Adrian [employer]ER-C, Rose Mary Primary Care Physician Adrian [employer] SENIOR OFFICER-C, Rose Mary Attending Physician Adrian [employer] SENIOR OFF[employer]ER-C, Rose Mary Referring Provider [phone] Adrian [employer] SENIOR OFFICER, Rose Mary Primary Care Unavailable Campbell [employer] SENIOR OFFICER, Rose Mary Referring Unavailable Campbell [employer] SENIOR OFFICER, Rose Mary Attending Unavailable Campbell [employer] SENIOR OFFICER, Rose Mary Primary Care Unavailable Campbell [employer] SENIOR OFFICER, Rose Mary Attending Unavailable Campbell [employer] SENIOR OFFICER, Rose Mary Attending Unavailable Campbell [employer] SENIOR OFFICER, Rose Mary Primary Care Unavailable Campbell [employer] SENIOR OFFICER, Rose Mary Referring Unavailable Allergies Allergy Classification Reported Allergen(s) Allergy Type Date of Onset Reaction(s) Facility (1 source) atorvastatin Drug Allergy 5 rhabdomyolysis [facility] (1 source) atorvastatin Drug Allergy 5 [facility] Repository Medications Current Medications Medication Drug Class(es) Dates Sig (Normalized) Sig (Original) Antiarthritic Combination No.2 (Glucosamine-Chondroit in) 900 mg tablet (4 sources) Start: 09-24-2019 take 1 tablet by mouth once daily Start: 09-24-2019 take 1 tablet by frida th once daily Antiarthritic Combination No.2 (Glucosamine-Chondroitin) 900 mg tablet Active 900 MG PO DAILY September 24, 2019 1:00am Start: 09-24-2019 take 1 tablet by frida th once daily Antiarthritic Combination No.2 (Glucosamine-Chondroitin) 900 mg tablet Active 900 MG PO DAILY September 24, 2019 12:00am aspirin 81 mg delayed release oral tablet (4 sources) Platelet Aggregation Inhibitor, Nonsteroidal Anti-inflammatory Drug Start: 09-24-2019 take 1 tablet by mouth once daily c-pcp machine (2 sources) Start: 06-13-2024 c-pcp machine Active 0 .Route .MEDSUPPLY 1 0 June 13, 2024 4:53pm Sleep apnea Obstructive sleep apnea (adult) (pediatric) sleep apnea with mask and tubing and all supplies Start: 06-13-2024 End: 06-13-2024 c-pcp machine Discontinued 0 .Route .MEDSUPPLY June 13, 2024 12:00am June 13, 2024 4:54pm Sleep apnea Obstructive sleep apnea (adult) (pediatric) sleep apnea with mask and tubing and all supplies calcium ascorbate 500 mg oral tablet (4 sources) Start: 09-24-2019 take 1 tablet by mouth twice daily calcium carbonate 1500 mg oral tablet (4 sources) Start: 09-24-2019 take 1 tablet by mouth twice daily ezetimibe 10 mg oral tablet (1 source) Dietary Cholesterol Absorption Inhibitor Start: 07-29-2025 take 1 tablet by mouth once daily Fish,Flaxseed Oil-E.Prim-Bcurr (Fish, Flax Andborage Oil(Prim)) 400-400-200 mg capsule (8 sources) Start: 12-04-2019 Start: 12-04-2019 take 1 capsule by mo uth twice daily Fish,Flaxseed Oil-E.Prim-Bcurr (Fish, Flax Andborage Oil(Prim)) 400-400-200 mg capsule Active 1 CAP PO TWICE A DAY December 04, 2019 11:36am Start: 12-04-2019 take 1 capsule by mo uth twice daily Fish,Flaxseed Oil-E.Prim-Bcurr (Fish, Flax Andborage Oil(Prim)) 400-400-200 mg capsule Active 1 CAP PO TWICE A DAY December 04, 2019 10:36am Start: 09-24-2019 End: 12-04-2019 Fish,Flaxseed Oil-E.Prim-Bcu rr (Fish, Flax Andborage Oil(Prim)) 400-400-200 mg capsule Discontinued 1 NMA PO DAILY 0 September 24, 2019 1:00am December 04, 2019 [...] 2019 10:38am FLUoxetine 20 mg oral capsule (20 sources) Serotonin Reuptake Inhibitor Start: 01-17-2019 End: 11-26-2024 take 1 capsule by mouth once daily Start: 10-06-2017 End: 01-17-2019 take 1 capsule by mouth once daily Fluoxetine 10 MG capsule Discontinued 10 mg PO DAILY October 06, 2017 1:00am January 17, 2019 12:49pm Ginkgo Biloba (4 sources) Start: 09-24-2019 take 1 tablet by mouth once da juanpablo Start: 09-24-2019 take 120 mg by mouth once bethany y Ginkgo Biloba Active 120 MG PO DAILY September 24, 2019 1:00am Start: 09-24-2019 take 120 mg by mouth once bethany y Ginkgo Biloba Active 120 MG PO DAILY September 24, 2019 12:00am Multivitamin preparation (3 sources) Start: 09-24-2019 take 1 tablet by mouth once daily Multivitamin Active 1 TABLET PO DAILY September 24, 2019 1:00am Start: 09-24-2019 take 1 tablet by frida th once daily Multivitamin Active 1 TABLET PO DAILY September 24, 2019 12:00am Multivitamin tablet (1 source) Start: 09-24-2019 potassium gluconate 2.5 meq oral tablet (8 sources) Start: 12-04-2019 take 1 tablet by frida th twice daily Start: 09-24-2019 End: 12-04-2019 take 10 mEq by mouth twice daily Potassium 99 mg tablet Discontinued 10 meq PO TWICE A DAY September 24, 2019 1:00am December 04, 2019 11:38am Start: 09-24-2019 End: 12-04-2019 take 10 mEq by mouth twice daily Potassium Discontinued 10 MEQ PO TWICE A DAY September 24, 2019 12:00am December 04, 2019 10:38am psyllium 520 mg oral capsule (4 sources) Start: 09-24-2019 Semaglutide (2 sources) Start: 05-17-2023 Semaglutide Ac tive 2 MG SC EVERY WEEK May 16, 2023 11:00pm Start: 05-17-2023 Semaglutide Ac tive 2 MG SC EVERY WEEK May 17, 2023 12:00am Semaglutide (1 source) Start: 05-17-2023 vitamin e 180 mg oral capsul e (4 sources) Start: 09-24-2019 Completed/Discontinued Medications Medication Drug Class(es) Dates Sig (Normalized) Sig (Original) acetaminophen 325 mg / oxyCODONE hydrochloride 5 mg oral tablet (4 sources) Opioid Agonist Start: 10-06-2017 End: 10-08-2018 Oxycodone-Acetamino phen 1 TABLET tablet Discontinued 1 {tbl} PO EVERY 6 HOURS NEEDED as needed for Pain October 06, 2017 1:00am October 08, 2018 4:47pm Start: 10-06-2017 End: 10-08-2018 take 1 tablet by mouth every six hours as needed Oxycodone-Acetaminophen Discontinued 1 TABLET PO EVERY 6 HOURS NEEDED October 06, 2017 12:00am October 08, 2018 3:47pm amoxicillin 875 mg / clavulanate 125 mg oral tablet (5 sources) Penicillin-class Antibacterial Start: 10-14-2024 End: 11-26-2024 Amoxicillin-Pot Clavulanate 875-125 mg tablet Discontinued 1 {tbl} PO TWICE A DAY October 14, 2024 1:00am November 26, 2024 4:16pm Start: 12-24-2020 End: 01-06-2021 take 1 tablet by mouth every twelve hours Amoxicillin-Pot Clavulanate 875 MG tablet Discontinued 875 mg PO Q12H 20 December 24, 2020 1:00am January 06, 2021 4:03pm atorvastatin 20 mg oral tablet (20 sources) HMG-CoA Reductase Inhibitor Start: 12-21-2021 End: 07-29-2025 take 1 tablet by mouth once daily Atorvastatin 20 mg tablet Discontinued 20 mg PO DAILY 90 November 26, 2024 4:19pm July 29, 2025 3:31pm Start: 02-08-2021 End: 12-21-2021 take 2 tablets by mouth once daily Atorvastatin 20 mg tablet Discontinued 40 mg PO DAILY February 08, 2021 1:15pm December 21, 2021 4:18pm Start: 02-08-2021 End: 12-21-2021 take 40 mg by mouth once daily Atorvastatin Discontinu ed 40 MG PO DAILY February 08, 2021 12:15pm December 21, 2021 3:18pm Start: 10-06-2017 End: 02-08-2021 take 1 tablet by mouth once daily Atorvastatin 20 mg tablet Discontinued 20 mg PO DAILY 90 3 January 17, 2019 12:50pm January 27, 2020 2:53pm azithromycin 250 mg oral tablet (1 source) Macrolide Antimicrobial Start: 12-29-2023 End: 01-03-2024 take 2 tablets by mouth once daily, then take 1 tablet by mouth once daily at mealtime Azithromycin 250 mg tablet Discontinued 250 mg PO daily 6 5 0 December 29, 2023 1:00am January 02, 2024 1:00am January 03, 2024 1:04am 2 po qd for 1 day then 1 po qd for 4 days with food or after eating cefuroxime 500 mg oral tablet (4 sources) Cephalosporin Antibacterial Start: 01-11-2023 End: 01-18-2023 take 1 tablet by mouth twice daily Cefuroxime Axetil 500 mg tablet Discontinued 500 mg PO TWICE A DAY 20 0 January 11, 2023 1:00am January 18, 2023 4:31pm doxycycline hyclate 100 mg oral capsule (6 sources) Tetracycline-class Drug Start: 08-25-2023 End: 09-08-2023 take 1 capsule by mouth twice daily Doxycycline Hyclate 100 mg capsule Discontinued 100 mg PO TWICE A DAY 28 14 0 August 25, 2023 12:00am September 07, 2023 12:00am September 08, 2023 12:04am Start: 03-15-2019 End: 09-10-2019 take 1 tablet by mouth twice daily Doxycycline Hyclate 100 mg tablet Discontinued 100 mg PO TWICE A DAY 60 0 March 15, 2019 12:00am September 10, 2019 4:32pm famotidine 40 mg oral tablet (15 sources) Histamine-2 Receptor Antagonist Start: 04-26-2021 End: 11-26-2024 take 1 tablet by mouth once daily Famotidine 40 mg tablet Discontinued 40 mg PO DAILY 90 2 March 11, 2022 1:18pm January 18, 2023 4:34pm hydroCHLOROthiazide 25 mg oral tablet (20 sources) Thiazide Diuretic Start: 10-06-2017 End: 11-26-2024 take 1 tablet by mouth once daily Hydrochlorothiazide 25 mg tablet Discontinued 25 mg PO DAILY 90 3 January 17, 2019 12:49pm January 27, 2020 2:53pm ketorolac tromethamine 4 mg/ml ophthalmic solution (1 source) Nonsteroidal Anti-inflammatory Drug, Cyclooxygenase Inhibitor Start: 06-11-2024 End: 11-26-2024 Ketorolac 0.4 % drops Discontinued 1 NMA OPHTHALMIC EVERY 6 HOURS 5 2 12 June 11, 2024 12:00am November 26, 2024 4:17pm metFORMIN hydrochloride 500 mg oral tablet (20 sources) Biguanide Start: 05-17-2023 End: 11-30-2023 take 1 tablet by mouth once daily Metformin 500 mg tablet Discontinued 500 mg PO DAILY May 17, 2023 3:27pm November 30, 2023 5:07pm Start: 12-21-2021 End: 05-17-2023 take 1 tablet by mouth twice daily Metformin 500 mg tablet Discontinued 500 mg PO TWICE A DAY 180 3 January 18, 2023 4:34pm May 17, 2023 3:29pm Start: 12-21-2021 End: 12-21-2021 take 1 tablet by mouth once daily Metformin 500 mg tablet Discontinued 500 mg PO DAILY December 21, 2021 4:10pm December 21, 2021 4:18pm Start: 02-24-2021 End: 12-21-2021 Metformin 500 mg tablet Disc ontinued 250 mg PO DAILY February 24, 2021 11:45am December 21, 2021 4:10pm Start: 02-24-2021 End: 12-21-2021 take 250 mg by mouth once daily Metformin Discontinued 250 MG PO DAILY February 24, 2021 10:45am December 21, 2021 3:10pm Start: 01-07-2021 End: 02-24-2021 take 1 tablet by mouth twice daily Metformin 500 mg tablet Discontinued 500 mg PO TWICE A DAY 180 3 January 07, 2021 1:00am February 24, 2021 11:45am metroNIDAZOLE 7.5 mg/ml topical cream (2 sources) Nitroimidazole Antimicrobial Start: 08-25-2023 End: 11-26-2024 Metronidazole (Metrocream) 0.75 % cream Discontinued 1 NMA TOPICAL TWICE A DAY 45 August 25, 2023 12:00am November 26, 2024 4:17pm rosacea face mupirocin 0.02 mg/mg topical ointment (4 sources) RNA Synthetase Inhibitor Antibacterial Start: 12-28-2020 End: 01-06-2021 Mupirocin 2 % ointment Discontinued 1 NMA TOPICAL TWICE A DAY 15 December 28, 2020 1:00am January 06, 2021 4:04pm omeprazole 40 mg delayed release oral capsule (4 sources) Proton Pump Inhibitor Start: 03-12-2021 End: 04-26-2021 take 1 capsule by mouth once daily Omeprazole 40 MG capsule,delayed release(DR/EC) Discontinued 40 mg PO DAILY 90 March 12, 2021 12:00am April 26, 2021 3:02pm ondansetron 8 mg disintegrating oral tablet (4 sources) Serotonin-3 Receptor Antagonist Start: 10-06-2017 End: 10-08-2018 take 1 tablet by mouth every eight hours as needed for nausea Ondansetron 8 MG tablet,disintegrat ing Discontinued 8 mg PO EVERY 8 HOURS NEEDED as needed for Nausea/Vomiting October 06, 2017 1:00am October 08, 2018 4:47pm predniSONE 20 mg oral tablet (1 source) Start: 12-29-2023 End: 11-26-2024 take 2 tablets by mouth once daily Prednisone 20 mg tablet Discontinued 40 mg PO DAILY 20 0 December 29, 2023 1:00am November 26, 2024 4:17pm Semaglutide (2 sources) Start: 11-30-2023 End: 02-28-2024 Semaglutide (Ozempic) 0.25 mg or 0.5 mg (2 mg/3 mL) pen injector Discontinued 0.5 mg SC EVERY WEEK 9.568 90 0 November 30, 2023 1:00am February 27, 2024 12:00am February 28, 2024 12:05am Bilateral acute otitis media Uncontrolled type 2 diabetes mellitus Otitis media, unspecified, bilateral Type 2 diabetes mellitus with hyperglycemia diabetes type 2 Start: 11-30-2023 Semaglutide (O zempic) 0.25 mg or 0.5 mg (2 mg/3 mL) pen injector Active 0.5 MG SC EVERY WEEK 9.568 90 November 30, 2023 12:00am triamcinolone acetonide 5 mg/ml topical cream (4 sources) Corticosteroid Start: 10-08-2018 End: 09-24-2019 Triamcinolone Acetonide 0.5 % cream Discontinued 1 NMA TOPICAL daily 30 6 October 08, 2018 1:00am September 24, 2019 2:54pm vitamin b12 1 mg/ml injectable solution (16 sources) Vitamin B12 Start: 04-26-2021 End: 05-17-2023 inject 1000 ug by intramuscular injection every month Cyanocobalamin (Vitamin B-12) 1,000 mcg/mL solution Discontinued 1000 ug IM EVERY MONTH 6 90 3 December 21, 2021 4:15pm May 17, 2023 3:26pm B12 def Start: 04-26-2021 End: 05-17-2023 inject 1000 ug by intramuscular injection every month Cyanocobalamin (Vitamin B-12) Discontinued 1000 MCG IM EVERY MONTH 6 90 December 21, 2021 3:15pm May 17, 2023 2:26pm Start: 01-06-2021 End: 02-19-2021 inject 1000 ug by intramuscular injection every other week Cyanocobalamin (Vitamin B-12) 1,000 mcg/mL solution Discontinued 1000 ug IM every 2 weeks 6 90 3 January 06, 2021 4:05pm February 19, 2021 9:48am B12 defeciency Start: 01-06-2021 End: 02-19-2021 inject 1000 ug by intramuscular injection every other week Cyanocobalamin (Vitamin B-12) Discontinued 1000 MCG IM every 2 weeks 6 90 January 06, 2021 3:05pm February 19, 2021 8:48am Start: 06-12-2020 End: 01-06-2021 inject 100 ug by intramuscular injection every other week Cyanocobalamin (Vitamin B-12) 1,000 mcg/mL solution Discontinued 100 ug IM every 2 weeks 0.7 90 June 12, 2020 12:00am January 06, 2021 4:07pm B12 defeciency Start: 06-12-2020 End: 01-06-2021 inject 100 ug by intramuscular injection every other week Cyanocobalamin (Vitamin B-12) Discontinued 100 MCG IM every 2 weeks 0.7 90 June 11, 2020 11:00pm January 06, 2021 3:07pm Problems Active Problems Problem Classification Problem Date Documented Da te Episodic/Chronic Allergic reactions (4 sources) Atopic dermatitis; Translations: [Atopic dermatitis, unspecified] 03-12-2021 Chronic Asthma (1 source) Asthmatic bronchitis; Translations: [Unspecified asthma, uncomplicated] 12-29-2023 Chronic Cardiac dysrhythmias (4 sources) Palpitations; Translations: [Palpitations] 03-12-2021 Episodic Diabetes mellitus with complications (5 sources) Type II diabetes mellitus uncontrolled; Translations: [Uncontrolled type 2 diabetes mellitus] Onset: 08-02-2022 Chronic Diabetes mellitus without complication (4 sources) Hyperglycemia; Translations: [Hyperglycemia, unspecified] 03-12-2021 Episodic Disorders of lipid metabolism (4 sources) Hyperlipidemia; Translations: [Hyperlipidemia, unspecified] 03-12-2021 Chronic E Codes: Adverse effects of medical drugs (4 sources) Metformin adverse reaction; Translations: [Adverse effect of insulin and oral hypoglycemic [antidiabetic] drugs, initial encounter] 03-12-2021 Episodic Esophageal disorders (4 sources) Gastroesophageal reflux disease; Translations: [Gastro-esophageal reflux disease without esophagitis] 03-12-2021 Chronic Essential hypertension (4 sources) Hypertensive disorder; Translations: [Essential (primary) hypertension] 08-02-2022 Chronic Mood disorders (4 sources) Depressive disorder; Translations: [Depression] 08-02-2022 Chronic Nutritional deficiencies (1 source) Vitamin D deficiency; Translations: [Vitamin D deficiency, unspecified] 07-29-2025 Chronic Open wounds of extremities (4 sources) Cat bite - wound; Translations: [Open bite of unspecified finger without damage to nail, initial encounter] 03-12-2021 Episodic Other and ill-defined heart disease (4 sources) Diastolic dysfunction; Translations: [Other ill-defined heart diseases] 02-08-2021 Chronic Other and unspecified benign neoplasm (4 sources) History of polyp of colon; Translations: [Personal history of colonic polyps] 02-08-2021 Episodic Other circulatory disease (4 sources) Finding of sensation of pharynx; Translations: [Other specified symptoms and signs involving the circulatory and respiratory systems] 03-12-2021 Episodic Other gastrointestinal disorders (4 sources) Diarrhea; Translations: [Diarrhea, unspecified] 03-12-2021 Episodic Other inflammatory condition of skin (2 sources) Rosacea; Translations: [Rosacea, unspecified] 08-25-2023 Chronic Other inflammatory condition of skin (2 sources) Perioral dermatitis; Translations: [Perioral dermatitis] 08-25-2023 Chronic Other injuries and conditions due to external causes (3 sources) Open wound with complication; Translations: [Other injury of unspecified body region, initial encounter] 03-12-2021 Episodic Other injuries and conditions due to external causes (1 source) Open wound; Translations: [Other injury of unspecified body region, initial encounter] 02-08-2021 Episodic Other lower respiratory disease (1 source) Wheezing; Translations: [Wheezing] 12-29-2023 Episodic Other nutritional; endocrine; and metabolic disorders (3 sources) Weight gain; Translations: [Abnormal weight gain] 03-12-2021 Episodic Other nutritional; endocrine; and metabolic disorders (1 source) Weight increased; Translations: [Abnormal weight gain] 02-08-2021 Episodic Other screening for suspected conditions (not mental disorders or infectious disease) (5 sources) Patient encounter status; Translations: [Encounter for screening mammogram for malignant neoplasm of breast] Onset: 5 10-29-2021 Episodic Other upper respiratory disease (1 source) Seasonal allergy; Translations: [Other seasonal allergic rhinitis] 06-12-2024 Chronic Other upper respiratory infections (4 sources) Maxillary sinusitis; Translations: [Chronic maxillary sinusitis] 01-11-2023 Chronic Other upper respiratory infections (1 source) Pharyngitis; Translations: [Acute pharyngitis, unspecified] 10-14-2024 Episodic Otitis media and related conditions (4 sources) Acute bilateral otitis media ; Translations: [Otitis media, unspecified, bilateral] 01-11-2023 Episodic Residual codes; unclassified (8 sources) Sleep apnea; Translations: [Sleep apnea, unspecified] 03-12-2021 Chronic Comment on above: done at [facility] ital The machine is over 5 years old and is making noises and now displaying motor life exceeded ,contact provider Residual codes; unclassified (1 source) Obstructive sleep apnea (adult) (pediatric); Translations: [Obstructive sleep apnea (adult) (pediatric)] Onset: 01-27-202 5 Chronic Residual codes; unclassified (4 sources) Edema; Translations: [Edema, unspecified] 03-12-2021 Episodic Spondylosis; intervertebral disc disorders; other back problems (4 sources) Backache; Translations: [Dorsalgia, unspecified] 03-12-2021 Episodic Superficial injury; contusion (4 sources) Tick bite; Translations: [Insect bite (nonvenomous) of abdominal wall, initial encounter] 03-12-2021 Episodic Unclassified (1 source) Unknown / UNK(Unknown) Onset: 7 Past or Other Problems Problem Classification Problem Date Documented Da te Episodic/Chronic Unclassified (1 source) E78.00 Onset: 06-07-2017 Results Test Name Value Interpretation Reference Range Facility SCRN MAMM (CAD)W/ALEN BILATo n 08-15-2025 SCRN MAMM (CAD)W/ALEN BILAT [facility] Imaging Services [address] [place] [address] [id number] SCRN MAMM (CAD)W/ALEN BILAT MR#: [id number] Acct: [id number] Name: CHRIS GARCIA Rep #: [id number] : 1950 F 74 From: Patrica Devries i, MD PCP: ISELA Piña Status: [facility] CLI Study: SCRN MAMM (CAD)W/ALEN BILAT Date of Exam: 07/22 05/14 Exam# [id number] Ordering Dr: Rose Mary Campbell NP N P-C EXAM: SCRN MAMM (CAD)W/ALEN BILAT DATE: 08/15/2025 CLINICAL HISTORY: F, Age 74 y/o , SCREENING TECHNIQUE: Procedure Code: [id number] Modality: MG Procedure: SCRN MAMM (CAD)W/ALEN BILAT COMPARISON: Prior exam(s) were compared FINDINGS: TISSUE DENSITY: The breasts are heterogeneously dense, which may obscure small masses. Bilateral Breast Mammographic Findings: No suspicious masses, calcifications or other abnormalities are identified. BI/SCRN MAMM (CAD)W/ALEN BILAT IMPRESSION: No mammographic evidence of malignancy in either breast OVERALL FINAL ASSESSMENT BI-RADS 1: NEGATIVE. RECOMMENDATION: Routine annual follow-up in 1 Year Additional Recommendation none A letter with findings and recommendations will be mailed to the patient. Reading Location: [id number] CC: ISELA Campbell [employer] Operator: Signed Normal [facility] Calculated very low density lipoprotein (VLDL) cholesterol measurementOrdered By: Rose Mary Campbell on 07-29-2025 Calculated very low density lipoprotein (VLDL) cholesterol measurement 103 mg/dL High 5-40 [facility] LDL calc ser/plasOrdered By: Rose Mary Campbell on 07-29-2025 Cholesterol in LDL [Mass/Vol] 184 mg/dL [facility] Comment on above: Rutamyjclh=434-224 m g/dL & Higher Tuwk=073 mg/dL or greaterFriedwald Equation for LDL-C Lipid Profileon 07-29-2025 CHOL:HDL 8.26 Normal [facility] Comment on above: Performed By: #### L 500.4100, L503.0106 #### [facility] [address]. [place], [place], [phone] Cholesterol [Mass/Vol] 327 mg/dL High <=200 [facility] Comment on above: Result Comment: Chol esterol level, Desirable <200 mg/dL Borderline high cholesterol 200-239 mg/dL High cholesterol >=240 mg/dL Recommendations of the NCEP Adult Treatment Panel for the following risk-cutoff thresholds for the [place] population. Performed By: #### L 500.4100, L503.0106 #### [facility] [address]. [place], [place], [id number] ([phone]) Cholesterol in HDL [Mass/Vol] 40 mg/dL Normal [facility] Comment on above: Result Comment: Mariz[place] onal Cholesterol Education Program (NCEP) guidelines: <40 mg/dL: Low HDL-cholesterol (major risk factor for CHD) >= 60 mg/dL: High HDL-cholesterol (negative risk factor for CHD) HDL-cholesterol is affected by a number of factors, e.g. smoking, exercise, hormones, sex and age. Performed By: #### L 500.4100, L503.0106 #### [facility] [address] [place], [address] Cholesterol in LDL [Mass/Vol] 184 mg/dL Normal [facility] Comment on above: Result Comment: Bord wsbapg=230-295 mg/dL Higher Pbtf=246 mg/dL or greater Friedwald Equation for LDL-C Performed By: #### L 500.4100, L503.0106 #### [facility] [address] [place], [address] Cholesterol in VLDL [Mass/Vol] 103 mg/dL High 5-40 [facility] Comment on above: Performed By: #### L 500.4100, L503.0106 #### [facility] [address] [place], [address] Triglyceride [Mass/Vol] 517 mg/dL High [facility] Comment on above: Result Comment: The drugs N-Acetylcysteine and Metamizole may falsely depress this assay. Normal range: <150 mg/dL Borderline High: 150-199 mg/dL High: 200-499 mg/dL Very High: >500 mg/dL Performed By: #### L 500.4100, L503.0106 #### [facility] [address] [place], [address] Screening total cholesterol/ high density lipoprotein (HDL) cholesterol ratioOrdered By: Rose Mary Campbell on 07-29-2025 Cholesterol.total/Jennifer sterol in HDL [Mass ratio] 8.26 {ratio} [facility] Serum or plasma cholesterol in HDL measurement (mass/volume)Ordered By: Rose Mary Campbell on 07-29-2025 Cholesterol in HDL [Mass/Vol] 40 mg/dL >40 [facility] Comment on above: National Cholesterol Education Program (NCEP) guidelines:<40 mg/dL: Low HDL-cholesterol (major risk factor for CHD)>= 60 mg/dL: High HDL-cholesterol (negative risk factor for CHD)HDL-cholesterol is affected by a number of factors, e.g. smoking, exercise, hormones, sex and age. Serum or plasma cholesterol measurement (mass/volume)Ordered By: Rose Mary Campbell on 07-29-2025 Cholesterol [Mass/Vol] 327 mg/dL High <201 [facility] Comment on above: Cholesterol level, D esirable <200 mg/dLBorderline high cholesterol 200-239 mg/dLHigh cholesterol >=240 mg/dLRecommendations of the NCEP Adult Treatment Panel for the following risk-cutoff thresholds for the [place] population. Triglycerides measurementOrd ered By: Rose Mary Campbell on 07-29-2025 Triglyceride [Mass/Vol] 517 mg/dL High <199 [facility] Comment on above: The drugs N-Acetylcy steine and Metamizole may falsely depress this assay. Normal range: <150 mg/dLBorderline High: 150-199 mg/dLHigh: 200-499 mg/dLVery High: >500 mg/dL Vitamin B12on 07-29-2025 Cobalamin (Vitamin B12) [Mass/Vol] 645 pg/mL Normal 180-914 [facility] Comment on above: Performed By: #### L 500.4100, L503.0106 #### [facility] [address] [place], [address] Vitamin B12 ser/plasOrdered By: Rose Mary Campbell on 07-29-2025 Cobalamin (Vitamin B12) [Mass/Vol] 645 pg/mL 180-914 [facility] CBC W/Diff, Automatedon 01-0 Absolute Lymph 3.06 X10 3/uL Normal 0.83-4.51 [facility] Comment on above: Performed By: #### L 500.4100, L500.4050, [id number], L100.0100 #### [facility] [address] [place], [address] Absolute Neut 4.3 X10 3/uL Normal 2.0-7.7 [facility] Comment on above: Performed By: #### L 500.4100, L500.4050, [id number], L100.0100 #### [facility] [address] [place], [address] Basophils/100 WBC (Bld) 0.8 % Normal 0-1 [facility] Comment on above: Performed By: #### L 500.4100, L500.4050, [id number], L100.0100 #### [facility] [address] [place], [address] Eosinophils/100 WBC (Bld) 1.5 % Normal 0-5 [facility] Comment on above: Performed By: #### L 500.4100, L500.4050, [id number], L100.0100 #### [facility] [address] [place], [address] Erythrocyte distribution width (RBC) [Ratio] 14.5 % Normal 11.6-14.6 [facility] Comment on above: Performed By: #### L 500.4100, L500.4050, [id number], L100.0100 #### [facility] [address] [place], [address] Hematocrit (Bld) [Volume fraction] 41.4 % Normal 37-47 [facility] Comment on above: Performed By: #### L 500.4100, L500.4050, [id number], L100.0100 #### [facility] [address] [place], [address] Hemoglobin (Bld) [Mass/Vol] 13.3 g/dL Normal 12.0-15.0 [facility] Comment on above: Performed By: #### L 500.4100, L500.4050, [id number], L100.0100 #### [facility] [address] [place], [address] IG% 0.400 Normal 0.0-0.9 [facility] Comment on above: Result Comment: IG% - Immature Granulocytes (promyelocytes, myelocytes and metamyelocytes) > 1% indicates that a LEFT SHIFT is Present. Performed By: #### L 500.4100, L500.4050, [id number], L100.0100 #### [facility] [address] [place], [address] Lymphocytes/100 WBC (Bld) 36.2 % Normal 19-41 [facility] Comment on above: Performed By: #### L 500.4100, L500.4050, [id number], L100.0100 #### [facility] [address] [place], [address] MCH (RBC) [Entitic mass] 29.5 pg Normal 27.0-32.0 [facility] Comment on above: Performed By: #### L 500.4100, L500.4050, [id number], L100.0100 #### [facility] [address] [place], [address] MCHC (RBC) [Mass/Vol] 32.1 g/dL Normal 32-36 [facility] Comment on above: Performed By: #### L 500.4100, L500.4050, [id number], L100.0100 #### [facility] [address] [place], [address] MCV (RBC) [Entitic vol] 91.8 fL Normal 81-99 [facility] Comment on above: Performed By: #### L 500.4100, L500.4050, [id number], L100.0100 #### [facility] [address] [place], [address] Monocytes/100 WBC (Bld) 10.0 % Normal 0-10 [facility] Comment on above: Performed By: #### L 500.4100, L500.4050, [id number], L100.0100 #### [facility] [address] [place], [address] Neutrophils/100 WBC (Bld) 51.1 % Normal 47-70 [facility] Comment on above: Performed By: #### L 500.4100, L500.4050, [id number], L100.0100 #### [facility] [address] [place], [address] Nucleated RBC (Bld) [#/Vol] 0 10*3/uL Normal 0-5 [facility] Comment on above: Performed By: #### L 500.4100, L500.4050, [id number], L100.0100 #### [facility] [address] [place], [address] Platelet mean volume (Bld) [Entitic vol] 9.8 fL Normal 6.2-12.0 [facility] Comment on above: Performed By: #### L 500.4100, L500.4050, [id number], L100.0100 #### [facility] [address] [place], [address] Platelets (Bld) [#/Vol] 297 10*3/uL Normal 150-450 [facility] Comment on above: Performed By: #### L 500.4100, L500.4050, [id number], L100.0100 #### [facility] [address] [place], [address] RBC (Bld) [#/Vol] 4.51 10*6/uL Normal 4.2-5.4 [facility] Comment on above: Performed By: #### L 500.4100, L500.4050, [id number], L100.0100 #### [facility] [address] [place], [address] RDW SD 48.8 fl High 35.1-43.9 [facility] Comment on above: Performed By: #### L 500.4100, L500.4050, [id number], L100.0100 #### [facility] [address] [place], [address] WBC (Bld) [#/Vol] 8.5 10*3/uL Normal 4.4-11.0 [facility] Comment on above: Performed By: #### L 500.4100, L500.4050, [id number], L100.0100 #### [facility] [address] [place], [address] Comprehensive Metabolic Prof aron 11-26-2024 Albumin [Mass/Vol] 4.0 g/dL Normal 3.2-5.0 [facility] Comment on above: Performed By: #### L 500.4100, L500.4050, [id number], L100.0100 #### [facility] [address] [place], [address] Albumin/Globulin [Mass ratio] 1.1 {ratio} Normal 0.9-2.4 [facility] Comment on above: Performed By: #### L 500.4100, L500.4050, [id number], L100.0100 #### [facility] [address] [place], [address] ALK P 104 U/L Normal 45-117 [facility] Comment on above: Performed By: #### L 500.4100, L500.4050, [id number], L100.0100 #### [facility] [address] [place], [address] ALT [Catalytic activity/Vol] 50 U/L Normal 13-56 [facility] Comment on above: Performed By: #### L 500.4100, L500.4050, [id number], L100.0100 #### [facility] [address] [place], [address] AST [Catalytic activity/Vol] 38 U/L High 15-37 [facility] Comment on above: Performed By: #### L 500.4100, L500.4050, [id number], L100.0100 #### [facility] [address] [place], [address] Bilirubin [Mass/Vol] 0.50 mg/dL Normal 0.20-1.00 [facility] Comment on above: Result Comment: For patients on eltrombopag therapy, use of Dimension [place] TBIL is not recommended. Performed By: #### L 500.4100, L500.4050, [id number], L100.0100 #### [facility] [address] [place], [address] BUN/CRE 22.0 RATIO High 10-20 [facility] Comment on above: Performed By: #### L 500.4100, L500.4050, [id number], L100.0100 #### [facility] [address] [place], [address] CA,Total 9.7 mg/dL Normal 8.5-10.1 [facility] Comment on above: Performed By: #### L 500.4100, L500.4050, [id number], L100.0100 #### [facility] [address] [place], [address] Chloride [Moles/Vol] 100 mmol/L Normal 98-107 [facility] Comment on above: Performed By: #### L 500.4100, L500.4050, [id number], L100.0100 #### [facility] [address] [place], [address] CO2 [Moles/Vol] 31.0 mmol/L Normal 21.0-32.0 [facility] Comment on above: Performed By: #### L 500.4100, L500.4050, [id number], L100.0100 #### [facility] [address] [place], [address] Creatinine [Mass/Vol] 0.73 mg/dL Normal 0.55-1.02 [facility] Comment on above: Result Comment: The validity of the calculated GFR GFRAA in patients over 70 years has not been determined. Clinical correlation is essential. Performed By: #### L 500.4100, L500.4050, L501.9985, L100.0100 #### [facility] [address] [place], [address] EST GFR - AA 101 mL/min Normal >60 [facility] Comment on above: Result Comment: Afri can [place]ut[place] GFR Calc Performed By: #### L 500.4100, L500.4050, [id number], L100.0100 #### [facility] [address] [place], [address] GAP 6 Normal 5-15 [facility] Comment on above: Performed By: #### L 500.4100, L500.4050, [id number], L100.0100 #### [facility] [address] [place], [address] GFR/1.73 sq M.predicted among non-blacks MDRD (S/P/Bld) [Vol rate/Area] 83 mL/min/{1.73_m2} Normal >60 [facility] Comment on above: Result Comment: Non- GFR Calc Performed By: #### L 500.4100, L500.4050, L501.9985, L100.0100 #### [facility] [address] [place], [address] Globulin (S) [Mass/Vol] 3.6 g/dL Normal 2.2-4.2 [facility] Comment on above: Performed By: #### L 500.4100, L500.4050, [id number], L100.0100 #### [facility] [address] [place], [address] Glucose [Mass/Vol] 91 mg/dL Normal 74-106 [facility] Comment on above: Performed By: #### L 500.4100, L500.4050, [id number], L100.0100 #### [facility] [address] [place], [address] Potassium [Moles/Vol] 4.1 mmol/L Normal 3.5-5.1 [facility] Comment on above: Performed By: #### L 500.4100, L500.4050, L501.9985, L100.0100 #### [facility] [address] [place], [address] Sodium [Moles/Vol] 136 mmol/L Normal 136-145 [facility] Comment on above: Performed By: #### L 500.4100, L500.4050, [id number], L100.0100 #### [facility] [address] [place], [address] T PROT 7.6 g/dL Normal 6.4-8.2 [facility] Comment on above: Performed By: #### L 500.4100, L500.4050, [id number], L100.0100 #### [facility] [address] [place], [address] Urea nitrogen [Mass/Vol] 16 mg/dL Normal 7-18 [facility] Comment on above: Performed By: #### L 500.4100, L500.4050, [id number], L100.0100 #### [facility] [address] [place], [address] Hemoglobin A1con 11-26-2024 HbA1c (Bld) [Mass fraction] 6.1 % High 3.8-5.6 [facility] Comment on above: Result Comment: Norm al < 5.7 % Prediabetic 5.7 - 6.4 % Diabetic >or= 6.5 % Please note range changes. Performed By: #### L 500.4100, L500.4050, [id number], L100.0100 #### [facility] [address] [place], [address] Lipid Profileon 11-26-2024 Cholesterol [Mass/Vol] 193 mg/dL Normal 200 [facility] Comment on above: Result Comment: <200 mg/dL Desirable 200-240 mg/dL Borderline >240 mg/dL High Risk Performed By: #### L 500.4100, L500.4050, L501.9985, L100.0100 #### [facility] [address] [place], [address] Cholesterol in HDL [Mass/Vol] 43 mg/dL Normal [facility] Comment on above: Result Comment: The drugs N-Acetylcysteine and Metamizole may falsely depress this assay. Reference Range HDL <40 mg/dL Low HDL Cholesterol HDL >or= 60 mg/dL High HDL Cholesterol Performed By: #### L 500.4100, L500.4050, L501.9985, L100.0100 #### [facility] [address] [place], [address] Cholesterol in LDL [Mass/Vol] 93 mg/dL Normal 0-130 [facility] Comment on above: Performed By: #### L 500.4100, L500.4050, [id number], L100.0100 #### [facility] [address] [place], [address] Cholesterol in VLDL [Mass/Vol] 57 mg/dL High 5-40 [facility] Comment on above: Performed By: #### L 500.4100, L500.4050, L501.9985, L100.0100 #### [facility] [address] [place], [address] Triglyceride [Mass/Vol] 284 mg/dL High [facility] Comment on above: Result Comment: The drugs N-Acetylcysteine and Metamizole may falsely depress this assay. Serum Triglycerides Reference Interval Normal <150 mg/dL Borderline high 150 - 199 mg/dL High 200 - 499 mg/dL Very High > or = 500 mg/dL Performed By: #### L 500.4100, L500.4050, L501.9985, L100.0100 #### [facility] [address] [place], [address] Absolute lymphocyte countOrd ered By: Rose Mary Campbell on 11-30-2023 Lymphocytes Auto (Unsp spec) [#/Vol] 2.85 10*3/uL 0.83-4.51 [facility] Basophil percentageOrdered B y: Rose Mary Campbell on 11-30-2023 Basophils/100 WBC (Bld) 1.1 % 0-1 [facility] Bilirubin [Mass/Vol] 0.40 mg/dL 0.20-1.00 [facility] Comment on above: For patients on eltr ombopag therapy, use of [place] TBIL is not recommended. Chloride [Moles/Vol] 102 mmol/L 98-107 [facility] Cholesterol [Mass/Vol] 206 mg/dL <200 [facility] Comment on above: <200 mg/dL Desirable 200-240 mg/dL Borderline >240 mg/dL High Risk Eosinophils/100 WBC (Bld) 2.1 % 0-5 [facility] Glucose [Mass/Vol] 82 mg/dL 74-106 [facility] Neutrophils (Bld) [#/Vol] 4.3 10*3/uL 2.0-7.7 [facility] Neutrophils/100 WBC (Bld) 51.7 % 47-70 [facility] Potassium [Moles/Vol] 4.0 mmol/L 3.5-5.1 [facility] Protein [Mass/Vol] 7.4 g/dL 6.4-8.2 [facility] Sodium [Moles/Vol] 139 mmol/L 136-145 [facility] Triglyceride [Mass/Vol] 320 mg/dL <199 [facility] Comment on above: The drugs N-Acetylcy steine and Metamizole may falsely depress this assay.Serum Triglycerides Reference Interval Normal <150 mg/dL Borderline high 150 - 199 mg/dL High 200 - 499 mg/dL Very High > or = 500 mg/dL WBC (Bld) [#/Vol] 8.4 10*3/uL 4.4-11.0 [facility] Blood erythrocytes count (nu mber/volume)Ordered By: Rose Mary Campbell on 11-30-2023 RBC (Bld) [#/Vol] 4.55 10*6/uL 4.2-5.4 [facility] Blood hemoglobin measurement (mass/volume)Ordered By: Rose Mary Campbell on 11-30-2023 Hemoglobin (Bld) [Mass/Vol] 13.5 g/dL 12.0-15.0 [facility] Blood lymphocytes/100 leukoc ytesOrdered By: Rose Mary Campbell on 11-30-2023 Lymphocytes/100 WBC (Bld) 33.9 % 19-41 [facility] Blood monocytes/100 leukocyt esOrdered By: Rose Mary Campbell on 11-30-2023 Monocytes/100 WBC (Bld) 11.0 % 0-10 [facility] Blood platelet mean volumeOr dered By: Rose Mary Campbell on 11-30-2023 Platelet mean volume (Bld) [Entitic vol] 9.7 fL 6.2-12.0 [facility] Determination of erythrocyte mean corpuscular volume (MCV)Ordered By: Rose Mary Campbell on 11-30-2023 MCV (RBC) [Entitic vol] 93.4 fL 81-99 [facility] Hematocrit Auto (Bld) [Volum e fraction]Ordered By: Rose Mary Campbell on 11-30-2023 Hematocrit (Bld) [Volume fraction] 42.5 % 37-47 [facility] - Chemistry and C hemistry - challengeOrdered By: Rose Mary Campbell on 11-30-2023 ALP [Catalytic activity/Vol] 95 U/L 45-117 [facility] ALT [Catalytic activity/Vol] 38 U/L 13-56 [facility] CO2 [Moles/Vol] 32.0 mmol/L 21.0-32.0 [facility] Globulin (S) [Mass/Vol] 3.6 g/dL 2.2-4.2 [facility] Urea nitrogen/Creatinine [Mass ratio] 18.7 mg/mg 10-20 [facility] - Hematology and Cell countsOrdered By: Rose Mary Campbell on 11-30-2023 Erythrocyte distribution width (RBC) [Entitic vol] 50.5 fL 35.1-43.9 [facility] Erythrocyte distribution width (RBC) [Ratio] 14.6 % 11.6-14.6 [facility] Immature granulocytes/100 WBC (Bld) 0.200 % 0.0-0.9 [facility] Comment on above: IG% - Immature Granu locytes (promyelocytes, myelocytes and metamyelocytes) > 1% indicates that a LEFT SHIFT is Present. MCH (RBC) [Entitic mass] 29.7 pg 27.0-32.0 [facility] Nucleated RBC/100 WBC (Bld) [Ratio] 0 % 0-5 [facility] MCHC Auto (RBC) [Mass/Vol]Or dered By: Rose Mary Campbell on 11-30-2023 MCHC (RBC) [Mass/Vol] 31.8 g/dL 32-36 [facility] No Panel InformationOrdered By: Rose Mary Campbell on 11-30-2023 Estimated GFR (MDRD) Amer 106 mL/min >60 [facility] Comment on above: GFR Calc Estimated GFR (MDRD) Non-Af Amer 88 mL/min >60 [facility] Comment on above: Non- GFR Calc Platelets bldOrdered By: Osbaldo Campbell on 11-30-2023 Platelets (Bld) [#/Vol] 294 10*3/uL 150-450 [facility] Serum or plasma albumin godfrey urement (mass/volume)Ordered By: Rose Mary Campbell on 11-30-2023 Albumin [Mass/Vol] 3.8 g/dL 3.2-5.0 [facility] Serum or plasma albumin/glob ulin mass ratioOrdered By: Rose Mary Campbell on 11-30-2023 Albumin/Globulin [Mass ratio] 1.1 {ratio} 0.9-2.4 [facility] Serum or plasma calcium godfrey urement (mass/volume)Ordered By: Rose Mary Campbell on 11-30-2023 Calcium [Mass/Vol] 9.5 mg/dL 8.5-10.1 [facility] Serum or plasma cholesterol in HDL measurement (mass/volume)Ordered By: Rose Mary Campbell on 11-30-2023 Cholesterol in HDL [Mass/Vol] 38 mg/dL >40 [facility] Comment on above: The drugs N-Acetylcy steine and Metamizole may falsely depress this assay. Reference Range HDL <40 mg/dL Low HDL Cholesterol HDL >or= 60 mg/dL High HDL Cholesterol Serum or plasma cholesterol in VLDL measurement (mass/volume)Ordered By: Rose Mary Campbell on 11-30-2023 Cholesterol in VLDL [Mass/Vol] 64 mg/dL 5-40 [facility] Serum or plasma creatinine m easurement (mass/volume)Ordered By: Rose Mary Campbell on 11-30-2023 Creatinine [Mass/Vol] 0.70 mg/dL 0.55-1.02 [facility] Comment on above: The validity of the calculated GFR & GFRAA in patients over 70 years has not been determined. Clinical correlation is essential. Serum or plasma low density lipoprotein (LDL) cholesterol measurement (mass/volume)Ordered By: Rose Mary Campbell on 11-30-2023 Cholesterol in LDL [Mass/Vol] 104 mg/dL 0-130 [facility] Serum or plasma urea nitroge n measurement (mass/volume)Ordered By: Rose Mary Campbell on 11-30-2023 Urea nitrogen [Mass/Vol] 13 mg/dL 7-18 [facility] Thin prep Papanicolaou smear with manual screeningOrdered By: Rose Mary Campbell on 11-30-2023 Thin prep Papanicolaou smear with manual screening 20 U/L 15-37 [facility] Thin prep Papanicolaou smear with manual screening 5 5-15 [facility] Whole blood hemoglobin A1c/t otal hemoglobin ratio (mass fraction)Ordered By: Rose Mary Campbell on 11-30-2023 HbA1c (Bld) [Mass fraction] 5.6 % 3.8-5.6 [facility] Comment on above: Normal < 5.7 % Predi abetic 5.7 - 6.4 % Diabetic >or= 6.5 % Please note range changes. Absolute lymphocyte countOrd ered By: Rose Mary Campbell on 05-17-2023 Lymphocytes Auto (Unsp spec) [#/Vol] 2.74 10*3/uL 0.83-4.51 [facility] Basophil percentageOrdered B y: Rose Mary Campbell on 05-17-2023 Basophils/100 WBC (Bld) 0.8 % 0-1 [facility] Bilirubin [Mass/Vol] 0.50 mg/dL 0.20-1.00 [facility] Comment on above: For patients on eltr ombopag therapy, use of Dimension [place] TBIL is not recommended. Chloride [Moles/Vol] 101 mmol/L 98-107 [facility] Cholesterol [Mass/Vol] 208 mg/dL <200 [facility] Comment on above: <200 mg/dL Desirable 200-240 mg/dL Borderline >240 mg/dL High Risk Eosinophils/100 WBC (Bld) 1.3 % 0-5 [facility] Glucose [Mass/Vol] 91 mg/dL 74-106 [facility] Neutrophils (Bld) [#/Vol] 4.5 10*3/uL 2.0-7.7 [facility] Neutrophils/100 WBC (Bld) 54.9 % 47-70 [facility] Potassium [Moles/Vol] 3.9 mmol/L 3.5-5.1 [facility] Protein [Mass/Vol] 7.6 g/dL 6.4-8.2 [facility] Sodium [Moles/Vol] 137 mmol/L 136-145 [facility] Triglyceride [Mass/Vol] 316 mg/dL <199 [facility] Comment on above: The drugs N-Acetylcy steine and Metamizole may falsely depress this assay.Serum Triglycerides Reference Interval Normal <150 mg/dL Borderline high 150 - 199 mg/dL High 200 - 499 mg/dL Very High > or = 500 mg/dL WBC (Bld) [#/Vol] 8.2 10*3/uL 4.4-11.0 [facility] Blood erythrocytes count (nu mber/volume)Ordered By: Rose Mary Campbell on 05-17-2023 RBC (Bld) [#/Vol] 4.53 10*6/uL 4.2-5.4 [facility] Blood hemoglobin measurement (mass/volume)Ordered By: Rose Mary Campbell on 05-17-2023 Hemoglobin (Bld) [Mass/Vol] 13.4 g/dL 12.0-15.0 [facility] Blood lymphocytes/100 leukoc ytesOrdered By: Rose Mary Campbell on 05-17-2023 Lymphocytes/100 WBC (Bld) 33.3 % 19-41 [facility] Blood monocytes/100 leukocyt esOrdered By: Rose Mary Campbell on 05-17-2023 Monocytes/100 WBC (Bld) 9.5 % 0-10 [facility] Blood platelet mean volumeOr dered By: Rose Mary Campbell on 05-17-2023 Platelet mean volume (Bld) [Entitic vol] 10.1 fL 6.2-12.0 [facility] Determination of erythrocyte mean corpuscular volume (MCV)Ordered By: Rose Mary Campbell on 05-17-2023 MCV (RBC) [Entitic vol] 91.8 fL 81-99 [facility] Hematocrit Auto (Bld) [Volum e fraction]Ordered By: Rose Mary Campbell on 05-17-2023 Hematocrit (Bld) [Volume fraction] 41.6 % 37-47 [facility] - Chemistry and C hemistry - challengeOrdered By: Rose Mary Campbell on 05-17-2023 ALP [Catalytic activity/Vol] 91 U/L 45-117 [facility] ALT [Catalytic activity/Vol] 34 U/L 13-56 [facility] CO2 [Moles/Vol] 30.0 mmol/L 21.0-32.0 [facility] Globulin (S) [Mass/Vol] 3.7 g/dL 2.2-4.2 [facility] Urea nitrogen/Creatinine [Mass ratio] 23.1 mg/mg 10-20 [facility] - Hematology and Cell countsOrdered By: Rose Mary Campbell on 05-17-2023 Erythrocyte distribution width (RBC) [Entitic vol] 49.6 fL 35.1-43.9 [facility] Erythrocyte distribution width (RBC) [Ratio] 14.6 % 11.6-14.6 [facility] Immature granulocytes/100 WBC (Bld) 0.200 % 0.0-0.9 [facility] Comment on above: IG% - Immature Granu locytes (promyelocytes, myelocytes and metamyelocytes) > 1% indicates that a LEFT SHIFT is Present. MCH (RBC) [Entitic mass] 29.6 pg 27.0-32.0 [facility] Nucleated RBC/100 WBC (Bld) [Ratio] 0 % 0-5 [facility] MCHC Auto (RBC) [Mass/Vol]Or dered By: Rose Mary Campbell on 05-17-2023 MCHC (RBC) [Mass/Vol] 32.2 g/dL 32-36 [facility] No Panel InformationOrdered By: Rose Mary Campbell on 05-17-2023 Estimated GFR (MDRD) Amer 99 mL/min >60 [facility] Comment on above: GFR Calc Estimated GFR (MDRD) Non-Af Amer 82 mL/min >60 [facility] Comment on above: Non- GFR Calc Platelets bldOrdered By: Osbaldo Campbell on 05-17-2023 Platelets (Bld) [#/Vol] 277 10*3/uL 150-450 [facility] Serum or plasma albumin godfrey urement (mass/volume)Ordered By: Rose Mary Campbell on 05-17-2023 Albumin [Mass/Vol] 3.9 g/dL 3.2-5.0 [facility] Serum or plasma albumin/glob ulin mass ratioOrdered By: Rose Mary Campbell on 05-17-2023 Albumin/Globulin [Mass ratio] 1.1 {ratio} 0.9-2.4 [facility] Serum or plasma calcium godfrey urement (mass/volume)Ordered By: Rose Mary Campbell on 05-17-2023 Calcium [Mass/Vol] 9.7 mg/dL 8.5-10.1 [facility] Serum or plasma cholesterol in HDL measurement (mass/volume)Ordered By: Rose Mary Campbell on 05-17-2023 Cholesterol in HDL [Mass/Vol] 39 mg/dL >40 [facility] Comment on above: The drugs N-Acetylcy steine and Metamizole may falsely depress this assay. Reference Range HDL <40 mg/dL Low HDL Cholesterol HDL >or= 60 mg/dL High HDL Cholesterol Serum or plasma cholesterol in VLDL measurement (mass/volume)Ordered By: Rose Mary Campbell on 05-17-2023 Cholesterol in VLDL [Mass/Vol] 63 mg/dL 5-40 [facility] Serum or plasma creatinine m easurement (mass/volume)Ordered By: Rose Mary Campbell on 05-17-2023 Creatinine [Mass/Vol] 0.74 mg/dL 0.55-1.02 [facility] Comment on above: The validity of the calculated GFR & GFRAA in patients over 70 years has not been determined. Clinical correlation is essential. Serum or plasma low density lipoprotein (LDL) cholesterol measurement (mass/volume)Ordered By: Rose Mary Campbell on 05-17-2023 Cholesterol in LDL [Mass/Vol] 106 mg/dL 0-130 [facility] Serum or plasma urea nitroge n measurement (mass/volume)Ordered By: Rose Mary Campbell on 05-17-2023 Urea nitrogen [Mass/Vol] 17 mg/dL 7-18 [facility] Thin prep Papanicolaou smear with manual screeningOrdered By: Rose Mary Campbell on 05-17-2023 Thin prep Papanicolaou smear with manual screening 25 U/L 15-37 [facility] Thin prep Papanicolaou smear with manual screening 6 5-15 [facility] Whole blood hemoglobin A1c/t otal hemoglobin ratio (mass fraction)Ordered By: Rose Mary Campbell on 05-17-2023 HbA1c (Bld) [Mass fraction] 5.9 % 3.8-5.6 [facility] Comment on above: Normal < 5.7 % Predi abetic 5.7 - 6.4 % Diabetic >or= 6.5 % Please note range changes. Absolute lymphocyte countOrd ered By: Rose Mary Campbell on 01-18-2023 Lymphocytes Auto (Unsp spec) [#/Vol] 2.64 10*3/uL 0.83-4.51 [facility] Basophil percentageOrdered B y: Rose Mary Campbell on 01-18-2023 Basophils/100 WBC (Bld) 0.7 % 0-1 [facility] Bilirubin [Mass/Vol] 0.40 mg/dL 0.20-1.00 [facility] Comment on above: For patients on eltr ombopag therapy, use of Dimension [place] TBIL is not recommended. Chloride [Moles/Vol] 102 mmol/L 98-107 [facility] Cholesterol [Mass/Vol] 204 mg/dL <200 [facility] Comment on above: <200 mg/dL Desirable 200-240 mg/dL Borderline >240 mg/dL High Risk Eosinophils/100 WBC (Bld) 1.2 % 0-5 [facility] Glucose [Mass/Vol] 123 mg/dL 74-106 [facility] Comment on above: Fasting Glucose resu lt from 100 to 125 mg/dL suggests IMPAIRED HOMEOSTASIS per A.D.A. criteria. Neutrophils (Bld) [#/Vol] 4.9 10*3/uL 2.0-7.7 [facility] Neutrophils/100 WBC (Bld) 57.9 % 47-70 [facility] Potassium [Moles/Vol] 4.1 mmol/L 3.5-5.1 [facility] Protein [Mass/Vol] 7.4 g/dL 6.4-8.2 [facility] Sodium [Moles/Vol] 140 mmol/L 136-145 [facility] Triglyceride [Mass/Vol] 465 mg/dL <199 [facility] Comment on above: The drugs N-Acetylcy steine and Metamizole may falsely depress this assay. TRIGLYCERIDE IS GREATER THAN 400 mg/dL. LDL RESULT IS INVALID AND WILL NOT BE REPORTED.Serum Triglycerides Reference Interval Normal <150 mg/dL Borderline high 150 - 199 mg/dL High 200 - 499 mg/dL Very High > or = 500 mg/dL WBC (Bld) [#/Vol] 8.4 10*3/uL 4.4-11.0 [facility] Blood erythrocytes count (nu mber/volume)Ordered By: Rose Mary Campbell on 01-18-2023 RBC (Bld) [#/Vol] 4.35 10*6/uL 4.2-5.4 [facility] Blood hemoglobin measurement (mass/volume)Ordered By: Rose Mary Campbell on 01-18-2023 Hemoglobin (Bld) [Mass/Vol] 13.2 g/dL 12.0-15.0 [facility] Blood lymphocytes/100 leukoc ytesOrdered By: Rose Mary Campbell on 01-18-2023 Lymphocytes/100 WBC (Bld) 31.5 % 19-41 [facility] Blood monocytes/100 leukocyt esOrdered By: Rose Mary Campbell on 01-18-2023 Monocytes/100 WBC (Bld) 8.2 % 0-10 [facility] Blood platelet mean volumeOr dered By: Rose Mary Campbell on 01-18-2023 Platelet mean volume (Bld) [Entitic vol] 9.9 fL 6.2-12.0 [facility] Determination of erythrocyte mean corpuscular volume (MCV)Ordered By: Rose Mary Campbell on 01-18-2023 MCV (RBC) [Entitic vol] 90.8 fL 81-99 [facility] Hematocrit Auto (Bld) [Volum e fraction]Ordered By: Rose Mary Campbell on 01-18-2023 Hematocrit (Bld) [Volume fraction] 39.5 % 37-47 [facility] Laboratory - Chemistry and C hemistry - challengeOrdered By: Rose Mary Campbell on 01-18-2023 ALP [Catalytic activity/Vol] 86 U/L 45-117 [facility] ALT [Catalytic activity/Vol] 40 U/L 13-56 [facility] CO2 [Moles/Vol] 31.0 mmol/L 21.0-32.0 [facility] Globulin (S) [Mass/Vol] 3.6 g/dL 2.2-4.2 [facility] Urea nitrogen/Creatinine [Mass ratio] 18.3 mg/mg 10-20 [facility] - Hematology and Cell countsOrdered By: Rose Mary Campbell on 01-18-2023 Erythrocyte distribution width (RBC) [Entitic vol] 47.4 fL 35.1-43.9 [facility] Erythrocyte distribution width (RBC) [Ratio] 14.2 % 11.6-14.6 [facility] Immature granulocytes/100 WBC (Bld) 0.500 % 0.0-0.9 [facility] Comment on above: IG% - Immature Granu locytes (promyelocytes, myelocytes and metamyelocytes) > 1% indicates that a LEFT SHIFT is Present. MCH (RBC) [Entitic mass] 30.3 pg 27.0-32.0 [facility] Nucleated RBC/100 WBC (Bld) [Ratio] 0 % 0-5 [facility] MCHC Auto (RBC) [Mass/Vol]Or dered By: Rose Mary Campbell on 01-18-2023 MCHC (RBC) [Mass/Vol] 33.4 g/dL 32-36 [facility] No Panel InformationOrdered By: Rose Mary Campbell on 01-18-2023 Estimated GFR (MDRD) Amer 95 mL/min >60 [facility] Comment on above: GFR Calc Estimated GFR (MDRD) Non-Af Amer 79 mL/min >60 [facility] Comment on above: Non- GFR Calc Platelets bldOrdered By: Osbaldo Campbell on 01-18-2023 Platelets (Bld) [#/Vol] 309 10*3/uL 150-450 [facility] Serum or plasma albumin godfrey urement (mass/volume)Ordered By: Rose Mary Campbell on 01-18-2023 Albumin [Mass/Vol] 3.8 g/dL 3.2-5.0 [facility] Serum or plasma albumin/glob ulin mass ratioOrdered By: Rose Mary Campbell on 01-18-2023 Albumin/Globulin [Mass ratio] 1.1 {ratio} 0.9-2.4 [facility] Serum or plasma calcium godfrey urement (mass/volume)Ordered By: Rose Mary Campbell on 01-18-2023 Calcium [Mass/Vol] 9.5 mg/dL 8.5-10.1 [facility] Serum or plasma cholesterol in HDL measurement (mass/volume)Ordered By: Rose Mary Campbell on 01-18-2023 Cholesterol in HDL [Mass/Vol] 37 mg/dL >40 [facility] Comment on above: The drugs N-Acetylcy steine and Metamizole may falsely depress this assay. Reference Range HDL <40 mg/dL Low HDL Cholesterol HDL >or= 60 mg/dL High HDL Cholesterol Serum or plasma cholesterol in VLDL measurement (mass/volume)Ordered By: Rose Mary Campbell on 01-18-2023 Cholesterol in VLDL [Mass/Vol] TNP [facility] Comment on above: Test not performed Serum or plasma creatinine m easurement (mass/volume)Ordered By: Rose Mary Campbell on 01-18-2023 Creatinine [Mass/Vol] 0.76 mg/dL 0.55-1.02 [facility] Comment on above: The validity of the calculated GFR & GFRAA in patients over 70 years has not been determined. Clinical correlation is essential. Serum or plasma low density lipoprotein (LDL) cholesterol measurement (mass/volume)Ordered By: Rose Mary Campbell on 01-18-2023 Cholesterol in LDL [Mass/Vol] TNP [facility] Comment on above: Test not performed Serum or plasma urea nitroge n measurement (mass/volume)Ordered By: Rose Mary Campbell on 01-18-2023 Urea nitrogen [Mass/Vol] 14 mg/dL 7-18 [facility] Thin prep Papanicolaou smear with manual screeningOrdered By: Rose Mary Campbell on 01-18-2023 Thin prep Papanicolaou smear with manual screening 27 U/L 15-37 [facility] Thin prep Papanicolaou smear with manual screening 7 5-15 [facility] Whole blood hemoglobin A1c/t otal hemoglobin ratio (mass fraction)Ordered By: Rose Mary Campbell on 01-18-2023 HbA1c (Bld) [Mass fraction] 6.1 % 3.8-5.6 [facility] Comment on above: Normal < 5.7 % Predi abetic 5.7 - 6.4 % Diabetic >or= 6.5 % Please note range changes. CBC W/DIFFon 12-06-2017 BASO ABS 0.10 K/CU MM Normal 0-0.2 [facility] [place] Comment on above: Performed By: #### L 200.63342 ####[facility] [id number] [place], [place] [address]Dc# [phone] Basophils/100 WBC Auto (Bld) 1.2 % Normal 0-2 [facility] [place] Comment on above: Performed By: #### L 200.93067 ####[facility] [id number] [place], [place] [address]Wf# [phone] EOS ABS 0.10 K/CU MM Normal 0-0.5 [facility] [place] Comment on above: Performed By: #### L 200.06251 ####[facility] [id number] [place], [place] [address]Tq# [phone] Eosinophils/100 leukocytes 1.8 % Normal 0-5 [facility] [place] Comment on above: Performed By: #### L 200.64853 ####[facility] [id number] [place], [place] [address]Qm# [phone] Erythrocyte distribution width Auto Ratio (RBC) 15.0 % High 11-14.5 [facility] [place] Comment on above: Performed By: #### L 200.60545 ####[facility] [id number] [place], [place] [address]Zf# [phone] Erythrocytes (RBC) 4.51 M/CU MM Normal 3.90-5.30 [facility] [place] Comment on above: Performed By: #### L 200.05504 ####[facility] [id number] [place], [place] [address]Ph# [phone] Erythrocytes (RBC) 0.0 % Normal Less than 1 [facility] [place] Comment on above: Performed By: #### L 200.36330 ####[place] [address]Ph# [phone] Hematocrit (HCT) 40.7 % Normal 35.0-47.0 [facility] [place] Comment on above: Performed By: #### L 200.49917 ####[facility] [id number] [place] [address]Tt# [phone] Hemoglobin mass conc (Bld) 13.0 g/dL Normal 11.5-15.5 [facility] [place] Comment on above: Performed By: #### L 200.62535 ####[facility] [id number] [place], [place] [address]Th# [phone] IMMATR GRAN ABS 0.00 K/CU MM Normal Less than 2 [facility] [place] Comment on above: Performed By: #### L 200.60799 ####[facility] [id number] [place], [place] [address]Vo# [phone] IMMATURE GRAN % 0.3 % Normal Less than 2 [facility] [place] Comment on above: Performed By: #### L 200.96444 ####[facility] [id number] [place], [place] [address]Ph# [phone] Lymphocytes 3.00 K/CU MM Normal 0.9-4.4 [facility] Comment on above: Performed By: #### L 200.56739 ####[facility] ZOELEMYQXY6915 [place], [place] [address]Fi# [phone] Lymphocytes/100 leukocytes 38.6 % Normal 20-40 [facility] Comment on above: Performed By: #### L 200.13971 ####[facility] [id number] [place], [place] [address]Xg# [phone] MCHC mass conc (RBC) 31.9 g/dL Low 32.0-36.0 [facility] Comment on above: Performed By: #### L 200.18597 ####[facility] [id number] [place], [place] [address]Ea# [phone] MCV 90.2 fL Normal 80.0-99.0 [facility] Comment on above: Performed By: #### L 200.67997 ####[facility] [id number] [place], [place] [address]Mz# [phone] MONO ABS 0.50 K/CU MM Normal 0.1-1.1 [facility] Comment on above: Performed By: #### L 200.43012 ####[facility] [id number] [place], [place] [address]Bx# [phone] Monocytes/100 leukocytes 6.7 % Normal 2-10 [facility] Comment on above: Performed By: #### L 200.36013 ####[facility] [id number] [place], [place] [address]Mi# [phone] Neutrophils 4.00 K/CU MM Normal 2.0-8.3 [facility] Comment on above: Performed By: #### L 200.82457 ####[facility] [id number] [place], [place] [address]Qt# [phone] Neutrophils/100 WBC Auto (Bld) 51.4 % Normal 45-75 [facility] Comment on above: Performed By: #### L 200.36588 ####[facility] [id number] [place], [place] [address]Sx# [phone] Platelet mean volume (PMV) 9.9 fL Normal 9.4-12.4 [facility] Comment on above: Performed By: #### L 200.29381 ####[facility] [id number] [place], [place] [address]Ce# [phone] Platelets 271 K/CU MM Normal 150-450 [facility] Comment on above: Performed By: #### L 200.47485 ####[facility] [id number] [place], [place] [address]Ev# [phone] WBC (Leukocytes) 7.8 K/CU MM Normal 4.5-11.0 [facility] Comment on above: Performed By: #### L 200.95554 ####[facility] [id number] [place] [address]Sb# [phone] CMPon 12-06-2017 Alanine aminotransferase (ALT) 33 U/L Normal 13-61 [facility] Comment on above: Result Comment: RESU LTS MAY BE FALSELY DEPRESSED AFTER THE ADMINISTRATION OFSULFASALAZINE AND/OR SULFAPYRIDINE. Performed By: #### L 500.24623, L500.19579, L500.20752 ####[facility] [id number] [place], [place] [address]Wh# [phone] Albumin 4.2 g/dL Normal 3.2-5.0 [facility] Comment on above: Performed By: #### L 500.99981, L500.21817, L500.68200 ####[facility] [id number] [place], [place] [address]Wt# [phone] Albumin/Globulin Ratio 1.2 {ratio} Normal 0.8-2.0 [facility] Comment on above: Performed By: #### L 500.76906, L500.60301, L500.66478 ####[facility] [id number] [place], [place] [address]Yp# [phone] ALK PHOS 117 U/L Normal 45-117 [facility] Comment on above: Performed By: #### L 500.32968, L500.55849, L500.00702 ####[facility] [id number] [place], [place] [address]He# [phone] Anion gap 6 mmol/L Normal 5-16 [facility] Comment on above: Performed By: #### L 500.77657, L500.03474, L500.84120 ####[facility] [id number] [place], [place] [address]Ek# [phone] BILI TOTAL 0.5 MG/DL Normal 0.2-1.0 [facility] Comment on above: Performed By: #### L 500.28651, L500.67182, L500.37910 ####[facility] UWRYVFYZSO3298 [place], [place] [address]So# [phone] BUN/Creatinine Ratio 18 mg/mg Normal 15-24 [facility] Comment on above: Performed By: #### L 500.61835, L500.41204, L500.75556 ####[facility] YAWDIOEUKN5639 [place], [place] [address]Zw# [phone] Calcium 9.8 mg/dL Normal 8.5-10.1 [facility] Comment on above: Performed By: #### L 500.60496, L500.96451, L500.00458 ####[facility] [id number] [place], [place] [address]Ee# [phone] Chloride 101 mmol/L Normal 98-107 [facility] Comment on above: Performed By: #### L 500.81665, L500.48291, L500.11044 ####[facility] EJZBLTBSLP1340 [place], [place] [address]Aq# [phone] CO2 31 mmol/L Normal 21-32 [facility] Comment on above: Performed By: #### L 500.23123, L500.62672, L500.31550 ####[facility] [id number] [place], [place] [address]Jw# [phone] Creatinine 0.620 mg/dL Normal 0.510-0.950 [facility] Comment on above: Result Comment: Marcela ents receiving either N-Acetylcysteine (NAC) orMetamizole prior to venipuncture, may have falsely depressedresults. Performed By: #### L 500.87187, L500.96069, L500.35075 ####[facility] SUNTIKIOCG5250 [place], [place] [address]Ez# [phone] Globulin 3.4 g/dL Normal 2.2-4.2 [facility] Comment on above: Performed By: #### L 500.46576, L500.75749, L500.72838 ####[facility] HNQCBJZCVI5245 [place], [place] [address]Ug# [phone] Glucose mass conc 81 mg/dL Normal 70-100 [facility] Comment on above: Result Comment: 70-1 00- Normal Fasting; 100-125 Impaired Fasting; greaterthan 126 on more than one result- Diabetes. ADA guidelines.Results may be falsely elevated after the administration ofSulfapyridine.Results may be falsely depressed after the administration ofSulfasalazine. Performed By: #### L 500.44820, L500.87702, L500.58585 ####[facility] [id number] [place], [place] [address]Td# [phone] Potassium molar conc 4.3 mmol/L Normal 3.5-5.1 [facility] Comment on above: Performed By: #### L 500.29743, L500.55381, L500.26550 ####[facility] QOPTGPWPPP8962 [place], [place] [address]Hb# [phone] Protein 7.6 g/dL Normal 6.0-8.5 [facility] Comment on above: Performed By: #### L 500.02291, L500.39206, L500.40534 ####[facility] [id number] [place], [place] [address]Kg# [phone] SGOT (AST) 20 U/L Normal 8-34 [facility] [place] Comment on above: Result Comment: RESU LTS MAY BE FALSELY DEPRESSED AFTER THE ADMINISTRATION OFSULFASALAZINE AND/OR SULFAPYRIDINE. Performed By: #### L 500.96158, L500.16197, L500.39221 ####[facility] [id number] [place], [place] [address]Vu# [phone] Sodium 138 mmol/L Normal 136-145 [facility] Comment on above: Performed By: #### L 500.27163, L500.67457, L500.45816 ####[facility] SFTXCXPJYH9420 [place], [place] [address]Xs# [phone] Urea nitrogen 11 mg/dL Normal 7-26 [facility] [place] Comment on above: Performed By: #### L 500.54690, L500.61384, L500.86367 ####[facility] AOIHEUGRMP8412 [place], [place] [address]Hl# [phone] GFR ESTon 12-06-2017 IF AMER Greater than 60 Normal [facility] [place] Comment on above: Performed By: #### L 500.02026, L500.08226, L500.29451 ####[facility] [id number] [place], [place] [address]Ue# [phone] IF non-AFR AMER Greater than 60 Normal [facility] [place] Comment on above: Performed By: #### L 500.03672, L500.94939, L500.98350 ####[facility] [id number] [place], [place] [address]Hs# [phone] LIPIDon 12-06-2017 Cholesterol 174 mg/dL Normal 0-199 [facility] Comment on above: Performed By: #### L 500.22641, L500.76496, L500.69082 ####[facility] [id number] [place], [place] [address]Wl# [phone] HDL Cholesterol 54 mg/dL Normal [place]ATER [place] 40 [facility] Comment on above: Result Comment: Marcela ents receiving Metamizole prior to venipuncture, mayhave falsely depressed results. Performed By: #### L 500.49272, L500.26141, L500.87482 ####[facility] [id number] [place], [place] [address]Fz# [phone] LDL Cholesterol 88 MG/DL Normal 0-129 [facility] Comment on above: Result Comment: ___C HOLESTEROL/HDL RATIO RISK___ CHD RISK = Total CHOL LDL HDL (CHOL/HDL) --------Recommended <200 <130 >35 <3.4 --Borderline 200-239 130-159 3.4-4.99 ------High >240 >160 >5.0 -- Performed By: #### L 500.61618, L500.99672, L500.97101 ####[facility] [id number] [place], [place] [address]Fp# [phone] Triglyceride 159 mg/dL High 30-149 [facility] [place] Comment on above: Result Comment: Marcela ents receiving either N-Acetylcysteine (NAC) orMetamizole prior to venipuncture, may have falsely depressedresults. Performed By: #### L 500.36367, L500.12445, L500.39677 ####[facility] [id number] [place] [address]Nt# [phone] UA COMPLETEon 12-06-2017 UA APPEARANCE CLOUDY Normal CLEAR [facility] [place] Comment on above: Performed By: #### L 600.02598, L600.31772 ####[facility] [id number] [place] [address]Pm# [phone] UA BILIRUBIN Negative Normal NEGATIVE [facility] [place] Comment on above: Performed By: #### L 600.25745, L600.65746 ####[facility] [id number] [place] [address]Ui# [phone] UA BLOOD Negative Normal NEGATIVE [facility] [place] Comment on above: Performed By: #### L 600.27241, L600.84168 ####[facility] [id number] [place] [address]Gx# [phone] UA COMMENT UA MICROSCOPIC Normal N [facility] [place] Comment on above: Performed By: #### L 600.75758, L600.91104 ####[facility] [id number] [place] [address]Ss# [phone] UA KETONE Negative Normal NEGATIVE [facility] [place] Comment on above: Performed By: #### L 600.88926, L600.83448 ####[facility] [id number] [place] [address]Ox# [phone] UA LK ESTERASE TRACE Normal NEGATIVE [facility] [place] Comment on above: Performed By: #### L 600.10058, L600.69562 ####[facility] [id number] [place] [address]Md# [phone] UA NITRITE Negative Normal NEGATIVE [facility] [place] Comment on above: Performed By: #### L 600.63284, L600.49100 ####[facility] [id number] [place], [place] [address]Sv# [phone] UA PH 7.0 Normal 5-6 [facility] [place] Comment on above: Performed By: #### L 600.40794, L600.44672 ####[facility] [id number] [place] [address]Ox# [phone] UA PROTEIN Negative Normal NEGATIVE [facility] [place] Comment on above: Performed By: #### L 600.53609, L600.09030 ####[address] [address]Bb# [phone] UA SPEC GRAV 1.009 Normal 1.005-1.030 [facility] [place] Comment on above: Performed By: #### L 600.57692, L600.24791 ####[address] [address]Xn# [phone] UA UROBILINOGEN NORMAL Normal NORMAL [facility] [place] Comment on above: Performed By: #### L 600.67986, L600.02842 ####[address] [address]Io# [phone] Urine, color YELLOW Normal [facility] [place] Comment on above: Performed By: #### L 600.79645, L600.90844 ####[facility] [id number] [place] [address]Vx# [phone] Urine, glucose Negative Normal NORMAL [facility] [place] Comment on above: Performed By: #### L 600.23682, L600.39085 ####[facility] [id number] [place] [address]Id# [phone] UA MICROSCOPICon 12-06-2017 HYALINE CAST 2 /LPF High 0-1 [facility] [place] Comment on above: Performed By: #### L 600.06470, L600.26356 ####[facility] [id number] [place], [place] [address]Zq# [phone] UA BACTERIA TRACE Normal NONE [facility] [place] Comment on above: Performed By: #### L 600.93833, L600.15023 ####[facility] [id number] [place], [place] [address]Xq# [phone] UA EPITH CELLS 12 EPI/HPF High 0-5 [facility] [place] Comment on above: Performed By: #### L 600.64266, L600.27950 ####[facility] [id number] [place], [place] [address]Pr# [phone] UA WBC 3 WBC/HPF Normal 0-5 [facility] Comment on above: Performed By: #### L 600.09632, L600.83093 ####[facility] [id number] [place], [place] [address]Xu# [phone] Urine, erythrocytes 2 RBC/HPF Normal 0-3 [facility] [place] Comment on above: Performed By: #### L 600.93837, L600.44174 ####[facility] [id number] [place], [place] [address]Sb# [phone] LIPIDon 06-07-2017 Cholesterol 122 mg/dL Normal 0-199 [facility] Comment on above: Performed By: #### L 500.86678, L500.56615 ####[facility] [id number] [place], [place] [address]Sr# [phone] HDL Cholesterol 31 mg/dL Low [place] 40 [facility] [place] Comment on above: Result Comment: Marcela ents receiving Metamizole prior to venipuncture, mayhave falsely depressed results. Performed By: #### L 500.64784, L500.89452 ####[facility] [id number] [place], [place] [address]Ba# [phone] LDL Cholesterol 72 MG/DL Normal 0-129 [facility] [place] Comment on above: Result Comment: ___C HOLESTEROL/HDL RATIO RISK___ CHD RISK = Total CHOL LDL HDL (CHOL/HDL) --------Recommended <200 <130 >35 <3.4 --Borderline 200-239 130-159 3.4-4.99 ------High >240 >160 >5.0 -- Performed By: #### L 500.37457, L500.10153 ####[facility] [id number] [place], [place] [address]Sd# [phone] Triglyceride 96 mg/dL Normal 30-149 [facility] Comment on above: Result Comment: Marcela ents receiving either N-Acetylcysteine (NAC) orMetamizole prior to venipuncture, may have falsely depressedresults. Performed By: #### L 500.82661, L500.60837 ####[facility] [id number] [place], [place] [address]Mp# [phone] [facility] 06-07-2017 Alanine aminotransferase (ALT) 34 U/L Normal 13-61 [facility] Comment on above: Performed By: #### L 500.94690, L500.25661 ####[facility] [id number] [place], [place] [address]Up# [phone] Albumin 3.9 g/dL Normal 3.2-5.0 [facility] [place] Comment on above: Performed By: #### L 500.97276, L500.00292 ####[facility] [id number] [place] [address]Po# [phone] Albumin/Globulin Ratio 1.2 {ratio} Normal 0.8-2.0 [facility] [place] Comment on above: Performed By: #### L 500.73872, L500.80549 ####[address] [address]Tf# [phone] ALK PHOS 104 U/L Normal 45-117 [facility] Comment on above: Performed By: #### L 500.12677, L500.61038 ####[place] [id number]# [phone] BILI DIRECT 0.14 MG/DL Normal 0.00-0.20 [facility] Comment on above: Performed By: #### L 500.58593, L500.03042 ####[facility] [id number] [place] [address]Kc# [phone] BILI TOTAL 0.5 MG/DL Normal 0.2-1.0 [facility] Comment on above: Performed By: #### L 500.90480, L500.11651 ####[facility] [id number] [place] [address]Gj# [phone] Globulin 3.3 g/dL Normal 2.2-4.2 [facility] Comment on above: Performed By: #### L 500.89439, L500.96172 ####[facility] [id number] [place] [address]Nm# [phone] Protein 7.2 g/dL Normal 6.0-8.5 [facility] Comment on above: Performed By: #### L 500.89103, L500.51447 ####[facility] [id number] [place], [place] [address]Jo# [phone] SGOT (AST) 25 U/L Normal 8-34 [facility] [place] Comment on above: Performed By: #### L 500.57528, L500.67992 ####[facility] [id number] [place], [place] [address]Ld# [phone] Vital Signs Date Time Vital Sign Value Performing Clinician Claude crump 07-28-2025 19:00-0400 Body height 149.86 cm Rose Mary Campbell [employer] Work Phone: [facility] 07-28-2025 19:00-0400 Body mass index (BMI) [Ratio] 44.4 kg/m2 Rose Mary Campbell [employer] Work Phone: [facility] 07-28-2025 19:00-0400 Body temperature 97.7 [degF] Rose Mary Campbell [employer] Work Phone: [facility] 07-28-2025 19:00-0400 Body weight 99.79 kg Rose Mary Campbell [employer] Work Phone: [facility] 07-28-2025 19:00-0400 Diastolic blood pressure 70 mm[Hg] Rose Mary Campbell [employer] Work Phone: [facility] 07-28-2025 19:00-0400 Heart rate 65 /min Rose Mary Campbell [employer] Work Phone: [facility] 07-28-2025 19:00-0400 Respiratory rate 18 /min Rose Mary Campbell [employer] Work Phone: [facility] 07-28-2025 19:00-0400 SaO2% (BldA) [Mass fraction] 96 % Rose Mary Campbell [employer] Work Phone: [facility] 07-28-2025 19:00-0400 Systolic blood pressure 140 mm[Hg] Rose Mary Campbell [employer] Work Phone: [facility] 11-30-2023 16:01-0500 Body height 149.86 cm [facility] 11-30-2023 16:01-0500 Body mass index (BMI) [Ratio] 43.4 kg/m2 [facility] 11-30-2023 16:01-0500 Body temperature 97.5 [degF] [facility] 11-30-2023 16:01-0500 Body weight 97.52 kg [facility] 11-30-2023 16:01-0500 Diastolic blood pressure 60 mm[Hg] [facility] 11-30-2023 16:01-0500 Heart rate 76 /min [facility] 11-30-2023 16:01-0500 Respiratory rate 18 /min [facility] 11-30-2023 16:01-0500 SaO2% (BldA) [Mass fraction] 95 % [facility] 11-30-2023 16:01-0500 Systolic blood pressure 130 mm[Hg] [facility] 08-25-2023 14:58-0400 Body mass index (BMI) [Ratio] 43.4 kg/m2 [facility] 08-25-2023 14:58-0400 Body temperature 97.7 [degF] [facility] 08-25-2023 14:58-0400 Body weight 97.52 kg [facility] 08-25-2023 14:58-0400 Diastolic blood pressure 80 mm[Hg] [facility] 08-25-2023 14:58-0400 Heart rate 83 /min [facility] 08-25-2023 14:58-0400 Respiratory rate 18 /min [facility] 08-25-2023 14:58-0400 SaO2% (BldA) [Mass fraction] 97 % [facility] 08-25-2023 14:58-0400 Systolic blood pressure 118 mm[Hg] [facility] 05-17-2023 15:22-0400 Body height 149.86 cm [facility] 05-17-2023 15:22-0400 Body mass index (BMI) [Ratio] 43.8 kg/m2 [facility] 05-17-2023 15:22-0400 Body temperature 98.1 [degF] [facility] 05-17-2023 15:22-0400 Body weight 98.42 kg [facility] 05-17-2023 15:22-0400 Diastolic blood pressure 70 mm[Hg] [facility] 05-17-2023 15:22-0400 Heart rate 102 /min [facility] 05-17-2023 15:22-0400 Respiratory rate 18 /min [facility] 05-17-2023 15:22-0400 SaO2% (BldA) [Mass fraction] 98 % [facility] 05-17-2023 15:22-0400 Systolic blood pressure 115 mm[Hg] [facility] 01-18-2023 14:59-0500 Body height 149.86 cm [facility] 01-18-2023 14:59-0500 Body mass index (BMI) [Ratio] 45.6 kg/m2 [facility] 01-18-2023 14:59-0500 Body temperature 98.1 [degF] [facility] 01-18-2023 14:59-0500 Body weight 102.51 kg [facility] 01-18-2023 14:59-0500 Diastolic blood pressure 60 mm[Hg] [facility] 01-18-2023 14:59-0500 Heart rate 80 /min [facility] 01-18-2023 14:59-0500 Respiratory rate 18 /min [facility] 01-18-2023 14:59-0500 SaO2% (BldA) [Mass fraction] 96 % [facility] 01-18-2023 14:59-0500 Systolic blood pressure 130 mm[Hg] [facility] 01-11-2023 18:26-0500 Body mass index (BMI) [Ratio] 44.4 kg/m2 [facility] 01-11-2023 18:26-0500 Body temperature 97.2 [degF] [facility] 01-11-2023 18:26-0500 Body weight 99.79 kg [facility] 01-11-2023 18:26-0500 Diastolic blood pressure 80 mm[Hg] [facility] 01-11-2023 18:26-0500 Heart rate 80 /min [facility] 01-11-2023 18:26-0500 Respiratory rate 18 /min [facility] 01-11-2023 18:26-0500 SaO2% (BldA) [Mass fraction] 95 % [facility] 01-11-2023 18:26-0500 Systolic blood pressure 130 mm[Hg] [facility] Encounters Encounter Date Encounter Type Care Provider Facility Start: 08-15-2025 End: 08-15-2025 ambulatory Rose Mary Campbell [employer] Facility:[facility] Start: 07-29-2025 End: 07-29-2025 ambulatory Rose Mary Campbell [employer] Work Phone: -Laboratory Specimen Start: 07-29-2025 End: 07-29-2025 Patient encounter procedure Rose Mary Campbell [employer] -Laboratory Specimen Work Phone: Start: 07-29-2025 End: 07-29-2025 ambulatory Rose Mary Campbell [employer] Facility:[facility] Start: 11-26-2024 End: 11-26-2024 ambulatory Rose Mary Campbell [employer] Facility:[facility] Start: 11-30-2023 End: 11-30-2023 ambulatory [facility] Work Phone: Start: 11-30-2023 End: 11-30-2023 Patient encounter procedure [facility]-Laboratory, Specimen Work Phone: Start: 05-17-2023 End: 05-17-2023 ambulatory [facility] Work Phone: Start: 05-17-2023 End: 05-17-2023 Patient encounter procedure [facility]-Laboratory, Specimen Work Phone: Start: 02-17-2023 End: 02-17-2023 Patient encounter procedure [facility]-Outpatient Breast Imaging Work Phone: Start: 01-18-2023 End: 01-18-2023 ambulatory [facility] Work Phone: Start: 01-18-2023 End: 01-18-2023 Patient encounter procedure [facility]-Laboratory, Specimen Start: 01-06-2021 Patient encounter status [facility] Start: 12-06-2017 Ambulatory Javed Pelletier Facilit y:[facility] Start: 06-07-2017 Ambulatory Javed Pelletier Facilit y:[facility] Procedures Date Procedure Procedure Detail Performing Clinician Start: 02-17-2023 Screening mammography H/O: surgery H/O hemorrhoidectomy H/O: tubal ligation S/P tubal ligation History of cholecystectomy History of cholecystectomy Plan of Treatment Date Care Activity Detail Author Start: 08-15-2025 Screening mammography SCRN RADHA M (CAD)W/ALEN BILAT [facility] Start: 08-15-2025 Patient encounter procedure Registered Clinical -Outpatient Breast Imaging Work Phone: MG Breast - left Screening [facility] Immunizations Immunization Date Immunization Notes Care Provider Fa cility 12-24-2020 tetanus toxoid, redu chuyita diphtheria toxoid, and acellular pertussis vaccine, adsorbed [facility] Payers Date Payer Category Payer Private Health Insurance [id number] 2024 Medicare [id number] 2024 Self-pay [id number] 2015 Private Health Insurance [id number] 2014 Medicare [id number] Unknown [id number] Unknown [id number] Unknown [id number] Social History Date Type Detail Facility Start: 03-10-2021 End: 03-10-2021 Tobacco smoking status NHIS Unknown if ever smoked [facility] Start: 03-10-2021 Non-smoker [facility] Start: 1950 Sex Assigned At Female [facility] Start: 07-28-2025 Tobacco smoking stat us NHIS Never smoked tobacco (finding) [facility] Sex Female [facility] Medical Equipment Procedure Code Equipment Code Equipment [...] x 1 syringe Start: 04-26-2021 Evaluation note 07-29-2025 Note Date & Type Note Facility 07-29-2025 Evaluation note Diagnosis Onset Date Resolution Diabetes type 2, uncontrolled acute July 29 3:12pm Hyperlipemia chronic July 3:12pm [facility] Work Phone: Evaluation note Note Date & Type Note Facility Evaluation note Diagnosis Onset Date Bilateral acute otitis media acute Diabetes type 2, uncontrolled acute Maxillary sinusitis acute Wellness examination acute [facility] Work Phone: Evaluation note Note Date & Type Note Facility Evaluation note Diagnosis Onset Date Diabetes type 2, uncontrolled acute Hyperlipemia chronic Hypertension chronic [facility] Work Phone: Evaluation note Note Date & Type Note Facility Evaluation note Diagnosis Onset Date Acne rosacea acute Perioral dermatitis acute Diabetes type 2, uncontrolled acute Gastroesophageal reflux disease acute Depression chronic Hyperlipemia chronic Hypertension [facility] Work Phone: Reason for referral (narrative) Note Date & Type Note Facility Reason for referral (narrative) No reason for referral information available [facility] Work Phone: Summary Purpose Family History No Family History Records Found Relationship Condition Age at Onset Recorded Date/T vinnie father Cardiac disease Unknown brother Cardiac disease Unknown aunt Disorder of thyroid Unknown mother Alzheimer's disease Unknown Advance Directives No Advanced Directives Records Found Advance Directive Response Recorded Date/ Time Living Will No Gege 21st, 2021 11:33am Power of License Registration Examiner No March 10 11:33am Advance Directive Response Recorded Date/ Time Living Will No March 10, 2021 12:33pm Power of License Registration Examiner No March 10 12:33pm Chief Complaint and [...] uncontrolled Gastroesophageal reflux disease Depression Hyperlipemia Hypertension Chief Complaint Admit Date medication refills/Fatigue July 3:12pm screening August 15, 2025 11:54am Reason for Visit Admit Date Diabetes type 2, uncontrolled July 29, 2025 3:12pm Hyperlipemia July 29, 2025 3:12pm Additional Source Comments INFORMATION SOURCE (unrecogn ized section and content) DATE CREATED AUTHOR 05/14/2018 [facility] Blank hernandez [place] DATE CREATED AUTHOR 'S ORGANIZ ATION 09/14/2025 [facility] Care Teams (unrecognized sec tion and content) Team Status: Active Member Role Status Dates Rose Mary Campbell NP, [employer] Primary Care Provider Active Team Status: Inactive Member Role Status Dates Rose Mary Campbell NP [employer] Primary Care Pr ovider, Attending Provider, Referring Provider Active Team Status: Inactive Member Role Status Dates Rose Mary Campbell NP, [employer] Primary Care Provider, Attend ing Provider Active Team Status: Active Member Role/Relationship Status Dates Rose Mary Campbell NP [employer] Primary care physician Active Team Status: Inactive Member Role/Relationship Status Dates Rose Mary Campbell NP [employer] Primary care physician Active Start: July 29, 2025 End: July 29, 2025 Rose Mary Campbell NP, NP-C Attending physician Active Start: July 29, 2025 End: July 29, 2025 Rose Mary Campbell NP, NP-C Referring Provider Active Start: July 29, 2025 End: July 29, 2025 Team Status: Inactive Member Role/Relationship Status Dates Rose Mary Campbell NP, NP-C Primary care physician Active Start: July 29, 2025 End: July 29, 2025 ISELA Piña NP Attending physician Active Start: July 29, 2025 End: July 29, 2025 Team Status: Active Member Role/Relationship Status Dates ISELA Piña NP Primary care physician Active Start: August 15, 2025 ISELA Piña NP Attending physician Active Start: August 15, 2025 ISELA Piña NP Referring Provider Active Start: August 15, 2025 Goals (unrecognized section and content) Goals may [...] BE BASED ON THE PRIMARY CLINICAL RECORDS. [employer] [facility]. provides no warranty or guarantee of the accuracy or completeness of information in this document.
[2025-11-04 21:46] LABS: Hematocrit 43.8 % (37-47); Hemoglobin 14.2 g/dL (12.0-15.0); Immature Granulocytes Count 0.020 X10^3/uL (0.0-0.0); Mean Corp Hgb Conc 32.4 g/dL (32-36); Mean Corpuscular Volume 93.0 fL (81-99); Mean Platelet Vol. 9.8 fl (6.2-12.0); NRBC Flagged by Analyzer 0 % (0-5); Platelet Count 310 K/mm3 (150-450); RBC Distribution Width CV 14.1 % (11.6-14.6); RBC Distribution Width SD 48.7 fl (35.1-43.9); Red Blood Count 4.71 M/mm3 (4.2-5.4); White Blood Count 8.1 K/mm3 (4.4-11.0)
[2025-11-04 22:13] LABS: AST(SGOT) 39 U/L (<=31); Alanine Aminotransfer ALT/SGPT 43 U/L (<=34); Albumin, Serum 4.5 g/dL (3.4-4.8); Alkaline Phosphatase 101 U/L (35-104); Anion Gap 11 (5-15); BUN 9 mg/dL (4-19); BUN/Creat Ratio 14.0 RATIO (10-20); Calcium,Total 9.6 mg/dL (7.6-11.0); Carbon Dioxide 29.3 mmol/L (21.0-32.0); Chloride 97 mmol/L (98-108); Cholesterol 281 mg/dL (<=200); Globulin 2.7 g/dL (2.2-4.2); Glucose 93 mg/dL (70-99); Low Density Lipoprotein Calc. 138 mg/dL; Potassium 4.3 mmol/L (3.3-5.1); Triglycerides 565 mg/dL; Very Low Density Lipoprotein 113 mg/dL (5-40); cholesterol:hdl ratio screen 7.45
== END | disposition home or self-care (01) ==
PROVIDERS: PCP Nurse Practitioner; Visit Provider Nurse Practitioner
DX: E11.65 Type 2 diabetes mellitus with hyperglycemia (principal); E78.2 Mixed hyperlipidemia; I10 Essential (primary) hypertension
CPT/HCPCS: 80053; 80061; 83036; 85025